=== PATIENT | male | born 1975 | race Caucasian/White ===

== ENCOUNTER 2018-03-20 08:39 | Outpatient (CLI) | payer MEDICAID, SELFPAY ==
[2018-03-20 12:09] LABS: Hemoglobin A1C 6.1 % (4.5-6.2)
[2018-03-20 12:28] LABS: Cholesterol 198 mg/dL (50-200); HDL Cholesterol 34 mg/dL (40-60); LDL CHOLESTEROL 147 mg/dL (<100); Triglyceride 140 mg/dL (30-150)
== END 2018-03-20 08:59 ==
LOC: LBO 08:39 → LOS 10:40
PROVIDERS: PCP Family Medicine; Visit Provider Family Medicine
DX: E11.9 Type 2 diabetes mellitus without complications (principal); E78.6 Lipoprotein deficiency
CPT/HCPCS: 36415; 80061; 83721; 83036

== ENCOUNTER 2018-07-11 17:07 | Emergency (ER) | payer MEDICAID, SELFPAY ==
[2018-07-11 17:31] VITALS: BP 144/96; PULSE 89; RESP 16; TEMP 36.7; O2SAT 99
--- NOTE | 2018-07-11 18:46 | DI.CT_ITS ---
SYMPTOMS/DIAGNOSIS: LLQ ABD PAIN, RECENT ADMISSION FOR DIVERTICULITIS CT OF THE ABDOMEN AND PELVIS: Comparison is made with [id number]. The lung bases are clear. The liver appears fatty. The gallbladder, spleen, pancreas, kidneys and adrenals are unremarkable. There is marked stranding in the fat surrounding the proximal sigmoid. Numerous diverticula are seen. The findings are consistent with diverticulitis. No abscess or perforation is seen. The bladder and appendix are unremarkable. There is no small bowel dilatation. IMPRESSION: Sigmoid diverticulitis.
--- NOTE | 2018-07-11 18:47 | W.ED.GENAD ---
Discharge Plan Disposition Patient Disposition: HOME Condition: Stable Discharge Details Chief Complaint: Abd Prob Clinical Impression: Diverticulitis Primary Care Provider: Gavino Pinedo ED Provider: Maldonado Stover [place] Meds and New Rx's Prescriptions: New metronidazole [Flagyl] 500 mg tablet 500 mg PO TID Qty: 30 RF: 0 ciprofloxacin HCl 500 mg tablet 500 mg PO BID Qty: 20 RF: 0 oxycodone 5 mg tablet 5 mg PO ONCE Qty: 10 RF: 0 No Action dextroamphetamine-amphetamine [Adderall XR] 30 mg capsule,extended release 24hr 30 mg PO QAM MDD 30mg Qty: 30 RF: 0 Discharge Instructions Instructions: Diverticulitis (ED) Additional Instructions: if you have severe worsening of pain or persistent vomit return to the emergency department follow up with your primary care provider in 1-2 weeks do not drink alcohol or operate heavy machinery if you take the oxycodone. Do not drink alcohol while taking the flagyl (metronidazole) Medical Decision Making <Brannon Acevedo MD - Last Filed: 07/11/18 19:29> 42-year-old male presents from home out of hours of left lower quadrant abdominal pain that are reminiscent of that which she had when admitted to [facility] early in the month for what he describes as diverticulitis with microperforation. He is afebrile and in mild distress. His exam reveals mild rebound tenderness in the left lower quadrant of the abdomen. Differential diagnosis includes recurrent acute diverticulitis, diverticulitis with perforation, bowel obstruction. Patient IV access established, fluids initiated, referred for laboratory testing and CT scan. Records requested from [facility]. As diagnostics are pending at change of shift, patient will be signed out to Dr. Stover. Please see his note regarding diagnostic impression and disposition. HPI <Brannon Acevedo MD - Last Filed: 07/11/18 19:29> General Mode of arrival: ambulatory. Date/Time Provider Initiated Documentation: 07/11/18 17:32. Limitations to Documentation: no limitations. Information obtained by: patient. History of Present Illness 42 year old M presents to the emergency department with the chief complaint of 42-year-old male presents with 1 day of left lower quadrant pain, HPI Narrative: Left lower quadrant pain beginning this morning. Began after eating a large amount of popcorn last night. Similar to episode of diverticulitis which she was admitted to [facility] the beginning of June. States he finished antibiotics approximately 10 days ago. He has been feeling well up until this morning. No fever. No vomiting. Related Data Home Medications Medication Instructions Recorded Confirmed dextroamphetamine-amphetamine ER 30 mg PO QAM #30 cap MDD 30mg 06/22/18 30 mg 24hr capsule,extend release ciprofloxacin HCl 500 mg PO BID #20 tab 07/11/18 metronidazole [Flagyl] 500 mg PO TID #30 tab 07/11/18 oxycodone 5 mg PO ONCE #10 tab 07/11/18 Previous Rx's Medication Instructions Recorded dextroamphetamine-amphetamine ER 30 mg PO QAM #30 cap MDD 30mg 06/22/18 30 mg 24hr capsule,extend release ciprofloxacin HCl 500 mg PO BID #20 tab 07/11/18 metronidazole [Flagyl] 500 mg PO TID #30 tab 07/11/18 oxycodone 5 mg PO ONCE #10 tab 07/11/18 Allergies Allergy/AdvReac Type Severity Reaction Status Date / Time No Known Allergies Allergy Unverified 07/11/18 17:34 General Stated Complaint: Abd Prob IVELISSE: 3 Review of Systems <Brannon Acevedo MD - Last Filed: 07/11/18 19:29> Review of Systems 8 systems reviewed and otherwise negative PFSH <Brannon Acevedo MD - Last Filed: 07/11/18 19:29> Surgical History Arthroscopy Family History Grandfather No problems noted. 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 Pleasant, well groomed, interactive. HEAD: Normocephalic, atraumatic ENT: Mucous membranes moist, oropharynx unremarkable, External ear exam unremarkable EYES: PERRL, EOMI NECK: Full ROM, no JESSICA, no menigismus CHEST/RESP: Nontender, clear to auscultation bilateral, no wheeze/rhonchi/rales CARDIOVASCULAR: RRR, no murmur, rub dai. 2+ Rad pulse bilateral ABDOMEN: Soft, obese, tender in the left lower quadrant with mild rebound., no mass. +Bowel sounds EXT: Full ROM, no edema, no rash Neuro: Grossly normal neurologic exam, conversant, interactive. Psych: Speech fluent, thoughts congruent, affect normal Course <Brannon Acevedo MD - Last Filed: 07/11/18 19:29> Vital Signs Temperature 36.7 C 07/11/18 17:31 Pulse 89 07/11/18 17:31 Respiratory Rate 16 07/11/18 17:31 Blood Pressure 144/96 H 07/11/18 17:31 Pulse Oximetry 99 07/11/18 17:31 Temperature 36.7 C 07/11/18 17:31 Temperature Source Skin 07/11/18 17:31 Pulse 89 07/11/18 17:31 Respiratory Rate 16 07/11/18 17:31 Respiratory Effort Non-Labored 07/11/18 17:31 Blood Pressure 144/96 H 07/11/18 17:31 Blood Pressure Position Sitting 07/11/18 17:31 Pulse Oximetry 99 07/11/18 17:31 Oxygen Delivery Method Room Air 07/11/18 17:31 Oxygen Flow Rate 0 07/11/18 17:31 Pain Level 8 07/11/18 17:31 Sign Out <Brannon Acevedo MD - Last Filed: 07/11/18 19:29> Sign Out Data: Sign Out Comment: Follow-up CAT scan Last updated by Brannon Acevedo MD at 07/11/18 19:30 Post-Handoff Eval: pt remains stable, mild pain in llq on exam without guarding. CT shows diverticulitis without abscess or perforation. will d/c on po abx and return precautions given
--- NOTE | 2018-07-11 18:50 | ED.GENADUL_ITS ---
Discharge Plan Disposition Patient Disposition: HOME Condition: Stable Discharge Details Chief Complaint: Abd Prob Clinical Impression: Diverticulitis Primary Care Provider: Gavino Pinedo ED Provider: Maldonado Stover [place] Meds and New Rx's Prescriptions: New metronidazole [Flagyl] 500 mg tablet 500 mg PO TID Qty: 30 RF: 0 ciprofloxacin HCl 500 mg tablet 500 mg PO BID Qty: 20 RF: 0 oxycodone 5 mg tablet 5 mg PO ONCE Qty: 10 RF: 0 No Action dextroamphetamine-amphetamine [Adderall XR] 30 mg capsule,extended release 24hr 30 mg PO QAM MDD 30mg Qty: 30 RF: 0 Discharge Instructions Instructions: Diverticulitis (ED) Additional Instructions: if you have severe worsening of pain or persistent vomit return to the emergency department follow up with your primary care provider in 1-2 weeks do not drink alcohol or operate heavy machinery if you take the oxycodone. Do not drink alcohol while taking the flagyl (metronidazole) Medical Decision Making <Brannon Acevedo MD - Last Filed: 07/11/18 19:29> 42-year-old male presents from home out of hours of left lower quadrant abdominal pain that are reminiscent of that which she had when admitted to [facility] early in the month for what he describes as diverticulitis with microperforation. He is afebrile and in mild distress. His exam reveals mild rebound tenderness in the left lower quadrant of the abdomen. Differential diagnosis includes recurrent acute diverticulitis, diverticulitis with perforation, bowel obstruction. Patient IV access established, fluids initiated, referred for laboratory testing and CT scan. Records requested from [facility]. As diagnostics are pending at change of shift, patient will be signed out to Dr. Stover. Please see his note regarding diagnostic impression and disposition. HPI <Brannon Acevedo MD - Last Filed: 07/11/18 19:29> General Mode of arrival: ambulatory . Date/Time Provider Initiated Documentation: 07/11/18 17:32 . Limitations to Documentation: no limitations . Information obtained by: patient . History of Present Illness 42 year old M presents to the emergency department with the chief complaint of 42-year-old male presents with 1 day of left lower quadrant pain, HPI Narrative: Left lower quadrant pain beginning this morning. Began after eating a large amount of popcorn last night. Similar to episode of diverticulitis which she was admitted to [facility] the beginning of June. States he finished antibiotics approximately 10 days ago. He has been feeling well up until this morning. No fever. No vomiting. Related Data Home Medications Medication Instructions Recorded Confirmed dextroamphetamine-amphetamine ER 30 mg PO QAM #30 cap MDD 30mg 06/22/18 30 mg 24hr capsule,extend release ciprofloxacin HCl 500 mg PO BID #20 tab 07/11/18 metronidazole [Flagyl] 500 mg PO TID #30 tab 07/11/18 oxycodone 5 mg PO ONCE #10 tab 07/11/18 Previous Rx's Medication Instructions Recorded dextroamphetamine-amphetamine ER 30 mg PO QAM #30 cap MDD 30mg 06/22/18 30 mg 24hr capsule,extend release ciprofloxacin HCl 500 mg PO BID #20 tab 07/11/18 metronidazole [Flagyl] 500 mg PO TID #30 tab 07/11/18 oxycodone 5 mg PO ONCE #10 tab 07/11/18 Allergies Allergy/AdvReac Type Severity Reaction Status Date / Time No Known Allergies Allergy Unverified 07/11/18 17:34 General Stated Complaint: Abd Prob IVELISSE: 3 Review of Systems <Brannon Acevedo MD - Last Filed: 07/11/18 19:29> Review of Systems 8 systems reviewed and otherwise negative PFSH <Brannon Acevedo MD - Last Filed: 07/11/18 19:29> Surgical History Arthroscopy Family History Grandfather No problems noted. 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 Pleasant, well groomed, interactive. HEAD: Normocephalic, atraumatic ENT: Mucous membranes moist, oropharynx unremarkable, External ear exam unremarkable EYES: PERRL, EOMI NECK: Full ROM, no JESSICA, no menigismus CHEST/RESP: Nontender, clear to auscultation bilateral, no wheeze/rhonchi/rales CARDIOVASCULAR: RRR, no murmur, rub dai. 2+ Rad pulse bilateral ABDOMEN: Soft, obese, tender in the left lower quadrant with mild rebound., no mass. +Bowel sounds EXT: Full ROM, no edema, no rash Neuro: Grossly normal neurologic exam, conversant, interactive. Psych: Speech fluent, thoughts congruent, affect normal Course <Brannon Acevedo MD - Last Filed: 07/11/18 19:29> Vital Signs Temperature 36.7 C 07/11/18 17:31 Pulse 89 07/11/18 17:31 Respiratory Rate 16 07/11/18 17:31 Blood Pressure 144/96 H 07/11/18 17:31 Pulse Oximetry 99 07/11/18 17:31 Temperature 36.7 C 07/11/18 17:31 Temperature Source Skin 07/11/18 17:31 Pulse 89 07/11/18 17:31 Respiratory Rate 16 07/11/18 17:31 Respiratory Effort Non-Labored 07/11/18 17:31 Blood Pressure 144/96 H 07/11/18 17:31 Blood Pressure Position Sitting 07/11/18 17:31 Pulse Oximetry 99 07/11/18 17:31 Oxygen Delivery Method Room Air 07/11/18 17:31 Oxygen Flow Rate 0 07/11/18 17:31 Pain Level 8 07/11/18 17:31 Sign Out <Brannon Acevedo MD - Last Filed: 07/11/18 19:29> Sign Out Data: Sign Out Comment: Follow-up CAT scan Last updated by Brannon Acevedo MD at 07/11/18 19:30 Post-Handoff Eval: pt remains stable, mild pain in llq on exam without guarding. CT shows diverticulitis without abscess or perforation. will d/c on po abx and return precautions given
[2018-07-11 19:12] LABS: Abs Immature Grans 0.03 k/cumm (0.0-0.09); Absolute Basophil Count 0.02 k/cumm (0.0-0.2); Absolute Eosinophil Count 0.11 k/cumm (0.0-0.7); Absolute Lymphocyte Count 1.64 k/cumm (1.2-3.4); Basophils % 0.2; Eosinophils % 0.9; HCT 49.4 % (40.0-50.0); HGB 16.8 g/dL (13.5-17.5); Immature Grans % 0.2; Lymphocytes % 13.3; Mean Corpuscular Hemoglobin 29.3 pg (27.0-33.0); Mean Corpuscular Volume 86.2 fL (80-95); Monocytes % 5.4; Platelet Count 235 x1000/uL (130-400); RBC 5.73 m/cumm (4.50-6.00); RBC Distribution Width 13.2 % (11.8-14.1); White Blood Cell Count 12.33 k/cumm (4.4-10.8)
[2018-07-11 19:14] LABS: Absolute Monocyte Count 0.67 k/cumm (0.11-0.7); Absolute Neutrophil Count 9.86 k/cumm (1.2-6.7)
[2018-07-11] MEDS: Normal Saline 1,000 ML 150 ML IV (19:25)
[2018-07-11 19:26] LABS: ALT 49 U/L (12-78); AST 25 U/L (15-37); Albumin 4.1 g/dL (3.4-5.0); Alkaline Phosphatase 86 U/L (46-116); Anion Gap 5.7 mmol/L (3-11); BUN 12 mg/dL (7-18); Bilirubin, Total 0.9 mg/dL (0.2-1.0); CO2 31.3 mmol/L (21.0-32.0); CREATININE 0.97 mg/dL (0.70-1.30); Calcium 9.5 mg/dL (8.5-10.1); Chloride 100 mmol/L (98-107); Glucose 97 mg/dL (70-100); Sodium 137 mmol/L (136-145); Total Protein 8.5 g/dL (6.4-8.2)
[2018-07-11] MEDS: Breeza Beverage 473 ML BTL PO ×2 (19:30→19:31)
[2018-07-11] MEDS: Omnipaque 350 MG/ML 50 ML BTL PO (19:31)
[2018-07-11] MEDS: Omnipaque 350 MG/ML 100 ML BTL IJ (20:48)
--- NOTE | 2018-07-11 21:20 | DI.VRAD_ITS ---
EXAM: CT Abdomen and Pelvis With Contrast EXAM DATE/TIME: 07/11/2018 6:47 PM CLINICAL HISTORY: 42 years old, male; Pain; Abdominal pain; Localized; Left lower quadrant (llq); Patient HX: Llq pain, recent admission for diverticulitis TECHNIQUE: Axial computed tomography images of the abdomen and pelvis with intravenous contrast. Coronal and sagittal reformatted images were created and reviewed. COMPARISON: CT CHEST ABD PELVIS WITH CONTRAST 10/21/2017 2:58 AM FINDINGS: Lower thorax: No acute findings. ABDOMEN: Liver: Unremarkable. No mass. Gallbladder and bile ducts: Unremarkable. No calcified stones. No ductal dilation. Pancreas: Unremarkable. No ductal dilation. Spleen: Unremarkable. No splenomegaly. Adrenals: Normal. No mass. Kidneys and ureters: Unremarkable. No stones. No hydronephrosis. Stomach and bowel: Numerous diverticula throughout the sigmoid colon. Inflammatory stranding and fluid surrounding and adjacent to the proximal sigmoid colon consistent with acute diverticulitis. Appendix: No evidence of appendicitis. PELVIS: Bladder: Unremarkable as visualized. Reproductive: Unremarkable as visualized. ABDOMEN and PELVIS: Intraperitoneal space: No free intraperitoneal fluid or free air. Bones/joints: No acute fracture. Soft tissues: Unremarkable. Vasculature: Unremarkable. No abdominal aortic aneurysm. Lymph nodes: Unremarkable. No enlarged lymph nodes. Other findings: No abscess. IMPRESSION: Acute sigmoid diverticulitis. Dictated and Authenticated by: Ashish Stevenson MD. Ordering:ELIOT South MD
[2018-07-11] MEDS: Ciprofloxacin 500 MG TAB PO (21:57)
[2018-07-11] MEDS: metroNIDAZOLE 500 MG TAB PO (21:57)
[2018-07-11] MEDS: oxyCODONE 5 MG TAB 15 MG PO (21:57)
[2018-07-11 22:05] VITALS: BP 134/86; PULSE 89; RESP 24; TEMP 37.1; O2SAT 99
== END 2018-07-11 22:19 | disposition home or self-care (01) ==
PROVIDERS: Emergency Medicine; Emergency Provider Emergency Medicine; PCP Family Medicine
DX: K57.32 Diverticulitis of large intestine without perforation or abscess without bleeding (principal)
CPT/HCPCS: 36415; 80053; 96361; 99285; 74177; 85025; 99284; J3490; Q9967

== ENCOUNTER 2018-08-15 12:47 | Emergency (ER) | payer MEDICAID, SELFPAY ==
--- NOTE | 2018-08-15 13:07 | NUR.NOTE ---
pt was diagnosed with diverticulitis several weeks ago in our ER symptoms subsided. pt states that at 0200 symptoms returned with 10/10 pain centering in LRQ
[2018-08-15 13:09] VITALS: BP 167/89; PULSE 90; RESP 16; TEMP 36; O2SAT 95
--- NOTE | 2018-08-15 13:35 | W.ED.GENAD ---
Discharge Plan Disposition Patient Disposition: AGAINST MEDICAL ADVICE Condition: Fair Discharge Details Chief Complaint: Abd Prob Clinical Impression: Diverticulitis Primary Care Provider: Gavino Pinedo ED Provider: Kimberly Presley Home Meds and New Rx's Prescriptions: Continued dextroamphetamine-amphetamine [Adderall] 30 mg Tablet 30 mg PO DAILY RF: 0 No Action amoxicillin-pot clavulanate 875-125 mg tablet 1 tab PO TID 10 Days Qty: 30 RF: 0 Discharge Instructions Additional Instructions: You have elected to leave the emergency department AGAINST MEDICAL ADVICE. The risks of doing so are and permanent disability, as we discussed. You may return to the emergency department at any time if you change your mind. Please return immediately to the emergency department if you develop any new or worsening symptoms or if you become otherwise concerned. It is extremely important that you make an appointment to follow-up with your primary care doctor as soon as possible. Referrals: Gavino Pinedo [Primary Care Provider] - Discharge Data Discharge Date/Time-TO BE ENTERED AT DEPARTURE: 08/15/18 16:27 Medical Decision Making Justin Mancia is a 42-year-old man with recent history of diverticulitis presenting to the emergency department with recurrence of left lower quadrant pain as with recent diverticulitis. On exam patient is very well and nontoxic appearing. He does have mild tenderness in the left lower quadrant without peritoneal signs. Concern for recurrence of diverticulitis, complication of prior episode, other. Exam/history is not consistent with acute aortic pathology, mesenteric ischemia, kidney stone, sepsis, testicular etiology. Plan for CT abdomen pelvis, screening labs, IV morphine, IV fluid hydration. I personally reviewed the CT, per radiology CT shows diverticulitis with microperforations and possible abscess. I did discuss the patient with Dr. Ozuna of surgery, plan for admission to the hospital, ertapenem. 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 I had a lengthy discussion with the patient regarding the risks of leaving the hospital AGAINST MEDICAL ADVICE including and permanent disability. Patient reports that he will return if he can, but there is no way that he can stay at this time. He verbalizes understanding the risks of leaving AGAINST MEDICAL ADVICE. Plan for Levaquin Flagyl p.o. I had a lengthy discussion with the patient regarding home care, that he may return to the emergency department anytime he changes his mind, return to emergency department precautions, and importance of outpatient follow-up. He verbalized understanding the plan and is amenable. Medical Records Medical records reviewed: Yes I reviewed the patient's medical records. Lab Data Lab results reviewed: Yes I reviewed the patient's lab results. HPI General Mode of arrival: ambulatory. Date/Time Provider Initiated Documentation: 08/15/18 13:13. Limitations to Documentation: no limitations. Information obtained by: patient, RN notes reviewed and old records reviewed. HPI Narrative: Justin Mancia is a 42-year-old man with history of narcolepsy, depression, asthma presenting to the emergency department left lower quadrant pain. Patient reports he was treated at [facility] for diverticulitis in early June 2018, and then was again treated with outpatient antibiotics for recurrence of diverticulitis in mid June. Patient reports that he has been off of all antibiotics for 3 weeks. He reports that he developed new left lower quadrant pain last night, it feels similar to what he had during the month of June. He has had no diarrhea, no vomiting, last bowel movement was this morning and normal. No fevers. Patient reports that he feels otherwise in his usual state of health. No history of abdominal surgery. Related Data Home Medications Medication Instructions Recorded Confirmed dextroamphetamine-amphetamine 30 mg PO DAILY 08/15/18 08/15/18 [Adderall] amoxicillin-pot clavulanate 1 tab PO TID 10 Days #30 tab 08/18/18 Previous Rx's Medication Instructions Recorded amoxicillin-pot clavulanate 1 tab PO TID 10 Days #30 tab 08/18/18 Allergies Allergy/AdvReac Type Severity Reaction Status Date / Time No Known Allergies Allergy Unverified 08/15/18 13:12 General Stated Complaint: Abd Prob IVELISSE: 3 Review of Systems Review of Systems Constitutional: denies fevers Eyes: denies eye pain ENT: denies facial pain, dental pain, sore throat Cardiovascular: denies chest pain, edema Respiratory: denies SOB, cough GI: reports abdominal pain, denies vomiting, diarrhea, constipation : denies flank pain MSK: denies back pain, neck pain, arthralgias, myalgias Skin: denies rash Neuro: denies headaches, numbness, weakness [facility] Medical History Sleep apnea (Acute) Diverticulitis (Chronic ~06/2018) Adult ADHD (Acute) Sleep apnea (Acute) Kidney stones (Chronic) Surgical History Arthroscopy Social History household members: other details: 5 current occupational status: employed 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 pets and animals: Yes pets and animals: cat(s) frequency: 5-6 times per week Smoking/Tobacco Use Status: Never alcohol intake: never substance use type: does not use special kristin needs: No Exam Narrative Exam Narrative: Constitutional: well and [id number], pleasant, conversing normally HENT: head atraumatic, normocephalic normal inspection, mucous membranes moist Eyes: conjunctiva normal, sclera normal, pupils 3mm b/l Neck: no stridor, normal ROM, trachea midline Chest: normal inspection Resp: normal work of breathing, LCTAB Cardio: normal rate, normal rhythm, no murmur appreciated GI: abdomen soft, mild tenderness palpation left lower quadrant, rebound or guarding, no CVA tenderness bilaterally, non-distended Back: normal inspection, no rash Skin: warm, dry, normal color, no rash Neuro: alert, not altered, grossly non-focal, normal tone Ext: no edema Psych: normal mood, normal affect, normal behavior Course Vital Signs Temperature 36 C L 08/15/18 13:09 Pulse 90 08/15/18 13:09 Respiratory Rate 16 08/15/18 13:09 Blood Pressure 167/89 H 08/15/18 13:09 Pulse Oximetry 95 08/15/18 13:09 Temperature 36 C L 08/15/18 13:09 Temperature Source Skin 08/15/18 13:09 Pulse 90 08/15/18 13:09 Respiratory Rate 16 08/15/18 13:09 Blood Pressure 167/89 H 08/15/18 13:09 Blood Pressure Position Sitting 08/15/18 13:09 Pulse Oximetry 95 08/15/18 13:09 Oxygen Delivery Method Room Air 08/15/18 13:09 Oxygen Flow Rate 0 08/15/18 13:09 Pain Level 10 08/15/18 13:09
[2018-08-15 14:08] LABS: Abs Immature Grans 0.05 k/cumm (0.0-0.09); Absolute Basophil Count 0.03 k/cumm (0.0-0.2); Absolute Eosinophil Count 0.04 k/cumm (0.0-0.7); Absolute Lymphocyte Count 1.86 k/cumm (1.2-3.4); Absolute Monocyte Count 0.73 k/cumm (0.11-0.7); Absolute Neutrophil Count 10.75 k/cumm (1.2-6.7); Basophils % 0.2; Eosinophils % 0.3; HCT 48.4 % (40.0-50.0); HGB 16.8 g/dL (13.5-17.5); Immature Grans % 0.4; Lymphocytes % 13.8; Mean Corp. HGB Concentration 34.7 g/dL (32.0-36.0); Mean Corpuscular Hemoglobin 29.8 pg (27.0-33.0); Mean Corpuscular Volume 85.8 fL (80-95); Mean Platelet Volume 10.8 fL (8.0-11.0); Monocytes % 5.4; Neutrophils % 79.9; Platelet Count 226 x1000/uL (130-400); RBC 5.64 m/cumm (4.50-6.00); RBC Distribution Width 13.3 % (11.8-14.1); White Blood Cell Count 13.45 k/cumm (4.4-10.8)
[2018-08-15 14:19] LABS: ALT 31 U/L (12-78); AST 17 U/L (15-37); Albumin 3.8 g/dL (3.4-5.0); Alkaline Phosphatase 85 U/L (46-116); Anion Gap 7.6 mmol/L (3-11); BUN 15 mg/dL (7-18); Bilirubin, Total 1.1 mg/dL (0.2-1.0); CO2 29.4 mmol/L (21.0-32.0); CREATININE 0.99 mg/dL (0.70-1.30); Calcium 9.3 mg/dL (8.5-10.1); Chloride 102 mmol/L (98-107); Glucose 95 mg/dL (70-100); Lipase 78 U/L (73-393); Potassium 4.1 mmol/L (3.5-5.1); Sodium 139 mmol/L (136-145); Total Protein 8.2 g/dL (6.4-8.2)
[2018-08-15] MEDS: Omnipaque 350 MG/ML 100 ML BTL IJ (14:24)
--- NOTE | 2018-08-15 14:30 | DI.CT_ITS ---
SYMPTOM/DIAGNOSIS: LLQ ABD PAIN, H/O DIVERTICULITIS ABDOMEN AND PELVIC CT: Comparison is made with 07/11/18. Sigmoid diverticulosis is again noted. There is continued wall thickening and inflammation surrounding the proximal sigmoid colon in the same location as on the previous exam, consistent with diverticulitis. There is now evidence of perforation with a small abscess seen anterior to the inflamed region of colon measuring approximately 2 cm. in diameter. There is no evidence of bowel obstruction. No free fluid is seen. The lung bases are clear. The heart size is normal. The liver, gallbladder, spleen, pancreas, adrenals, kidneys and urinary bladder as well as prostate are unremarkable. IMPRESSION: Sigmoid diverticulitis in the same location as on the previous exam, now with perforation and formation of a small abscess anterior to the region of the inflamed colon.
--- NOTE | 2018-08-15 15:11 | DI.VRAD_ITS ---
Addendum created by Anshu Lopez MD on 08/15/2018 3:16:24 PM EST THIS REPORT CONTAINS FINDINGS THAT MAY BE CRITICAL TO PATIENT CARE. The findings were verbally communicated via telephone conference with ROBERT HAUSER at 3:16 PM EST on 08/15/2018. The findings were acknowledged and understood. Initial report created on 08/15/2018 3:11:02 PM EST EXAM: CT Abdomen and Pelvis With Contrast EXAM DATE/TIME: 08/15/2018 2:23 PM CLINICAL HISTORY: 42 years old, male; Pain; Abdominal pain; Localized; Left lower quadrant (llq); Patient HX: Llq pain. PT sts HX of diverticulitis. TECHNIQUE: Axial computed tomography images of the abdomen and pelvis with intravenous contrast. All CT scans at this facility use at least one of these dose optimization techniques: automated exposure control; mA and/or kV adjustment per patient size (includes targeted exams where dose is matched to clinical indication); or iterative reconstruction. Coronal and sagittal reformatted images were created and reviewed. CONTRAST: 100 ml of omnipaque 350 administered intravenously. COMPARISON: CT Private^ROUTINE ABDOMEN PELVIS WITH CONTRAST (Adult) 07/11/2018 8:29 PM FINDINGS: Lower thorax: No acute findings. ABDOMEN: Liver: Hepatomegaly 20 cm No mass. Gallbladder and bile ducts: Normal. No calcified stones. No ductal dilation. Pancreas: Normal. No ductal dilation. Spleen: Normal. No splenomegaly. Adrenals: Normal. No mass. Kidneys and ureters: Normal. No hydronephrosis. Stomach and bowel: Diverticulosis and Bowel wall thickening along the rectosigmoid colon. Moderate pericolonic inflammatory changes. Multiple focal perforations in the left lower quadrant. 2 cm fluid collection within the rectosigmoid could represent abscess (4:73) No evidence of bleeding. Findings consistent with acute diverticulitis. Appendix: Normal appendix PELVIS: Bladder: Unremarkable as visualized. Reproductive: Unremarkable as visualized. ABDOMEN and PELVIS: Intraperitoneal space: Multiple focal perforation subadjacent to the diverticulitis Bones/joints: Degenerative changes in the right sacroiliac joint Soft tissues: Unremarkable. Vasculature: Normal. No abdominal aortic aneurysm. Lymph nodes: Normal. No enlarged lymph nodes. IMPRESSION: Diverticulosis and Bowel wall thickening along the rectosigmoid colon. Moderate pericolonic inflammatory changes. Multiple focal perforations in the left lower quadrant. 2 cm fluid collection within the colon could represent abscess (4:73) No evidence of bleeding. Findings consistent with acute diverticulitis. Dictated and Authenticated by: Anshu Lopez MD. Ordering:ZEB Harris MD
[2018-08-15 15:30] LABS: Bilirubin Negative (Negative); Blood Negative (Negative); Clarity Clear; Glucose Negative (Negative); Ketones Negative (Negative); Leukocyte Esterase Negative (Negative); Nitrite Negative (Negative); Specific Gravity 1.015 (1.005-1.025); Urobilinogen 0.2 EU/dL (Up TO 0.2)
[2018-08-15 15:40] LABS: Bacteria Rare HPF (Negative); Crystals Negative HPF (Negative); Epithelial Cells Negative HPF (Negative); Other Cells Negative (Negative); RBC Negative (0-2); WBC Negative HPF (0-5)
[2018-08-15 15:41] LABS: C & S Indicated? No; Casts Negative LPF (Negative); Mucus Trace (Negative)
[2018-08-15] MEDS: metroNIDAZOLE 500 MG TAB PO (16:19)
[2018-08-15] MEDS: LEVOFLOXACIN 500 MG, LEVOFLOXACIN 250 MG 750 MG PO (16:19)
--- NOTE | 2018-08-15 18:39 | ED.GENADUL_ITS ---
Discharge Plan Disposition Patient Disposition: AGAINST MEDICAL ADVICE Condition: Fair Discharge Details Chief Complaint: Abd Prob Clinical Impression: Diverticulitis Primary Care Provider: Gavino Pinedo ED Provider: Kimberly Presley Home Meds and New Rx's Prescriptions: Continued dextroamphetamine-amphetamine [Adderall] 30 mg Tablet 30 mg PO DAILY RF: 0 No Action amoxicillin-pot clavulanate 875-125 mg tablet 1 tab PO TID 10 Days Qty: 30 RF: 0 Discharge Instructions Additional Instructions: You have elected to leave the emergency department AGAINST MEDICAL ADVICE. The risks of doing so are and permanent disability, as we discussed. You may return to the emergency department at any time if you change your mind. Please return immediately to the emergency department if you develop any new or worsening symptoms or if you become otherwise concerned. It is extremely important that you make an appointment to follow-up with your primary care doctor as soon as possible. Referrals: Gavino Pinedo [Primary Care Provider] - Discharge Data Discharge Date/Time-TO BE ENTERED AT DEPARTURE: 08/15/18 16:27 Medical Decision Making Justin Mancia is a 42-year-old man with recent history of diverticulitis presenting to the emergency department with recurrence of left lower quadrant pain as with recent diverticulitis. On exam patient is very well and nontoxic appearing. He does have mild tenderness in the left lower quadrant without peritoneal signs. Concern for recurrence of diverticulitis, complication of prior episode, other. Exam/history is not consistent with acute aortic pathology, mesenteric ischemia, kidney stone, sepsis, testicular etiology. Plan for CT abdomen pelvis, screening labs, IV morphine, IV fluid hydration. I personally reviewed the CT, per radiology CT shows diverticulitis with micrope rforations and possible abscess. I did discuss the patient with Dr. Ozuna of surgery, plan for admission to the hospital, ertapenem. 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 I had a lengthy discussion with the patient regarding the risks of leaving the hospital AGAINST MEDICAL ADVICE including and permanent disability. Patient reports that he will return if he can, but there is no way that he can stay at this time. He verbalizes understanding the risks of leaving AGAINST MEDICAL ADVICE. Plan for Levaquin Flagyl p.o. I had a lengthy discussion with the patient regarding home care, that he may return to the emergency department anytime he changes his mind, return to emergency department precautions, and importance of outpatient follow-up. He verbalized understanding the plan and is amenable. Medical Records Medical records reviewed: Yes I reviewed the patient's medical records. Lab Data Lab results reviewed: Yes I reviewed the patient's lab results. HPI General Mode of arrival: ambulatory . Date/Time Provider Initiated Documentation: 08/15/18 13:13 . Limitations to Documentation: no limitations . Information obtained by: patient, RN notes reviewed and old records reviewed . HPI Narrative: Justin Mancia is a 42-year-old man with history of narcolepsy, depression, asthma presenting to the emergency department left lower quadrant pain. Patient reports he was treated at [place] for diverticulitis in early June 2018, and then was again treated with outpatient antibiotics for recurrence of diverticulitis in mid June. Patient reports that he has been off of all antibiotics for 3 weeks. He reports that he developed new left lower quadrant pain last night, it feels similar to what he had during the month of June. He has had no diarrhea, no vomiting, last bowel movement was this morning and normal. No fevers. Patient reports that he feels otherwise in his usual state of health. No history of abdominal surgery. Related Data Home Medications Medication Instructions Recorded Confirmed dextroamphetamine-amphetamine 30 mg PO DAILY 08/15/18 08/15/18 [Adderall] amoxicillin-pot clavulanate 1 tab PO TID 10 Days #30 tab 08/18/18 Previous Rx's Medication Instructions Recorded amoxicillin-pot clavulanate 1 tab PO TID 10 Days #30 tab 08/18/18 Allergies Allergy/AdvReac Type Severity Reaction Status Date / Time No Known Allergies Allergy Unverified 08/15/18 13:12 General Stated Complaint: Abd Prob IVELISSE: 3 Review of Systems Review of Systems Constitutional: denies fevers Eyes: denies eye pain ENT: denies facial pain, dental pain, sore throat Cardiovascular: denies chest pain, edema Respiratory: denies SOB, cough GI: reports abdominal pain, denies vomiting, diarrhea, constipation : denies flank pain MSK: denies back pain, neck pain, arthralgias, myalgias Skin: denies rash Neuro: denies headaches, numbness, weakness [facility] Medical History Sleep apnea (Acute) Diverticulitis (Chronic ~06/2018) Adult ADHD (Acute) Sleep apnea (Acute) Kidney stones (Chronic) Surgical History Arthroscopy Social History household members: other details: 5 current occupational status: employed current occupation: [employer] pets and animals: Yes pets and animals: cat(s) frequency: 5-6 times per week Smoking/Tobacco Use Status: Never alcohol intake: never substance use type: does not use special kristin needs: No Exam Narrative Exam Narrative: Constitutional: well and [id number], pleasant, conversing normally HENT: head atraumatic, normocephalic normal inspection, mucous membranes moist Eyes: conjunctiva normal, sclera normal, pupils 3mm b/l Neck: no stridor, normal ROM, trachea midline Chest: normal inspection Resp: normal work of breathing, LCTAB Cardio: normal rate, normal rhythm, no murmur appreciated GI: abdomen soft, mild tenderness palpation left lower quadrant, rebound or guarding, no CVA tenderness bilaterally, non-distended Back: normal inspection, no rash Skin: warm, dry, normal color, no rash Neuro: alert, not altered, grossly non-focal, normal tone Ext: no edema Psych: normal mood, normal affect, normal behavior Course Vital Signs Temperature 36 C L 08/15/18 13:09 Pulse 90 08/15/18 13:09 Respiratory Rate 16 08/15/18 13:09 Blood Pressure 167/89 H 08/15/18 13:09 Pulse Oximetry 95 08/15/18 13:09 Temperature 36 C L 08/15/18 13:09 Temperature Source Skin 08/15/18 13:09 Pulse 90 08/15/18 13:09 Respiratory Rate 16 08/15/18 13:09 Blood Pressure 167/89 H 08/15/18 13:09 Blood Pressure Position Sitting 08/15/18 13:09 Pulse Oximetry 95 08/15/18 13:09 Oxygen Delivery Method Room Air 08/15/18 13:09 Oxygen Flow Rate 0 08/15/18 13:09 Pain Level 10 08/15/18 13:09
== END 2018-08-15 16:27 | disposition left against medical advice (07) ==
PROVIDERS: Emergency Provider Student in an Organized Health Care Education/Training Program; PCP Family Medicine
DX: R10.32 Left lower quadrant pain (principal); K57.32 Diverticulitis of large intestine without perforation or abscess without bleeding; Z53.29 Procedure and treatment not carried out because of patient's decision for other reasons
CPT/HCPCS: 36415; 80053; 83690; 96374; 99285; 74177; 81003; 81015; 85025; 99284; J3490

== ENCOUNTER 2018-08-15 19:44 | Inpatient (IN) | payer MEDICAID, SELFPAY ==
[2018-08-15 20:17] VITALS: BP 136/71; PULSE 98; RESP 16; TEMP 36.8; O2SAT 94
--- NOTE | 2018-08-15 20:29 | W.ED.GENAD ---
Discharge Plan Disposition Condition: Improving Discharge Details Chief Complaint: Abd Prob Reason For Visit: DIVERTICULITIS Admit Date/Time: 08/15/18 20:32 Admit Provider: Poncho Ozuna Attending Provider: Poncho Ozuna Primary Care Provider: Gavino Pinedo ED Provider: Kimberly Presley Discharge Instructions Activity:: No strenuous activity. Equipment/Supplies:: No Equipment Needed Diet:: Low Fiber Discharge Orders Discharge Orders: Discharge Order (Routine); Ordered 08/18/18 Ordered By: Sharlene Gómez Discharge Data Discharge Date/Time-TO BE ENTERED AT DEPARTURE: 08/15/18 22:33 Medical Decision Making Justin Mancia is a 42-year-old man who was seen here earlier today for left lower quadrant pain since last night, diagnosed with diverticulitis with microperforations and possible abscess on CT. at that time was for admission to the surgical service. Patient elected to leave AGAINST MEDICAL ADVICE. Patient now returns, having taking care of personal matters, wishes to be admitted as was previously planned. Recent evaluation with CT imaging and labs, no further emergent testing indicated at this time. Plan for admission to Dr. Ozuna of surgery. Impression: Diverticulitis Disposition: [facility] inpatient Medical Records Medical records reviewed: Yes I reviewed the patient's medical records. HPI General Mode of arrival: ambulatory. Date/Time Provider Initiated Documentation: 08/15/18 20:20. Limitations to Documentation: no limitations. Information obtained by: RN notes reviewed and old records reviewed. HPI Narrative: Justin Mancia is a 42-year-old man with history of ADHD, sleep apnea, kidney stones, 2 episodes of diverticulitis 06/30 presented to the emergency department earlier today for abdominal pain since last night. He was subsequently diagnosed by CAT scan with diverticulitis with microperforations and possible abscess. After diagnosis, plan for admission with ertapenem to the surgical service. Patient declined admission AGAINST MEDICAL ADVICE, stated that he had to take care of some things at home, but will return later. He was sent home with p.o. antibiotics. Patient has now returned for admission. He reports he continues to have some mild to moderate left lower quadrant pain that is unchanged from his prior encounter earlier today. He denies having any other symptoms. Please see my note for earlier encounter today. Related Data Home Medications Medication Instructions Recorded Confirmed amoxicillin-pot clavulanate 1 tab PO TID 10 Days #30 tab 08/18/18 08/25/18 levofloxacin 750 mg tablet 750 mg PO DAILY 08/25/18 08/25/18 metronidazole 500 mg tablet 500 mg PO TID 08/25/18 08/25/18 dextroamphetamine-amphetamine ER 30 mg PO QAM #30 cap MDD 1 08/26/18 30 mg 24hr capsule,extend release Previous Rx's Medication Instructions Recorded amoxicillin-pot clavulanate 1 tab PO TID 10 Days #30 tab 08/18/18 dextroamphetamine-amphetamine ER 30 mg PO QAM #30 cap MDD 1 08/26/18 30 mg 24hr capsule,extend release Allergies Allergy/AdvReac Type Severity Reaction Status Date / Time No Known Allergies Allergy Unverified 08/25/18 13:05 General Stated Complaint: Abd Prob IVELISSE: 3 Review of Systems Review of Systems Constitutional: denies fevers Eyes: denies eye pain ENT: denies facial pain, dental pain, sore throat Cardiovascular: denies chest pain Respiratory: denies SOB, cough GI: denies vomiting, reports abdominal pain : denies flank pain MSK: denies back pain, neck pain, arthralgias, myalgias Skin: denies rash Neuro: denies headaches, numbness, weakness PFSH Medical History Sleep apnea (Acute) Diverticulitis (Chronic ~06/2018) Adult ADHD (Acute) Sleep apnea (Acute) Kidney stones (Chronic) Surgical History Arthroscopy Family History Grandfather No problems noted. 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 pets and animals: Yes pets and animals: cat(s) frequency: 5-6 times per week Smoking and Tabacco status: Never alcohol intake: never substance use type: does not use special kristin needs: No Exam Narrative Exam Narrative: Constitutional: well and [id number], pleasant, conversing normally HENT: head atraumatic/normocephalic/normal inspection, mucous membranes moist Eyes: conjunctiva normal, sclera normal, pupils 3mm b/l Neck: no stridor, normal ROM, trachea midline Resp: normal work of breathing, LCTAB Cardio: normal rate, normal rhythm, no murmur appreciated GI: abdomen soft, left lower quadrant focally tender, no rebound or guarding, non-distended Skin: warm, dry, normal color, no rash Neuro: alert, not altered, grossly non-focal, normal tone Ext: no edema Psych: normal mood, normal affect, normal behavior Course Vital Signs Temperature 36.8 C 08/15/18 20:17 Pulse 98 H 08/15/18 20:17 Respiratory Rate 16 08/15/18 20:17 Blood Pressure 136/71 08/15/18 20:17 Pulse Oximetry 94 L 08/15/18 20:17 Temperature 36.8 C 08/15/18 20:17 Pulse 98 H 08/15/18 20:17 Respiratory Rate 16 08/15/18 20:17 Respiratory Effort 08/15/18 20:17 Blood Pressure 136/71 08/15/18 20:17 Blood Pressure Position Sitting 08/15/18 20:17 Pulse Oximetry 94 L 08/15/18 20:17 Oxygen Delivery Method Room Air 08/15/18 20:17 Oxygen Flow Rate 0 08/15/18 20:17 Pain Level 10 08/15/18 20:17
--- NOTE | 2018-08-15 21:07 | W.PM.HP.N ---
Date of service: 08/15/18 Time of Service: 21:07 Assessment and Plan (1) Diverticulitis: Current visit: Yes Status: Chronic 42 y/o male with an acute/chronic diverticulitis of the rectosigmoid colon which has had a smoldering course since June 2018. Symptoms appear to recur after he has completed each round of antibiotics. He has been on a fluoroquinolone/metronidazole x [address] scan noted. Will treat with ertapenem on this admission. Clear liquid diet. Follow-up labs in am.. See orders. Discussed with patient that there is a high likelihood that he will need a colon resection if the diverticulitis continues to have this recurrent/chronic course. He does not appear to be septic at this time. Would prefer to optimize him for a scheduled colon resection after his acute infection has subsided and he is able to tolerate a bowel prep. Further recommendations pending clinical course. All questions answered. Patient appeared to understand and agree with the discussion as outlined above. (2) Sleep apnea: Current visit: Yes Status: Acute Patient may use his home CPAP. History of Present Illness Chief Complaint: Abdominal pain Narrative: 42 y/o male admitted through the ED with recurrent diverticulitis. Patient has a known h/o kidney stones and had lower abdominal pain and hematuria in early June 2018. He was seen at [facility] and found to have diverticulitis with a microburst. He was hospitalized on IV ABX x 4 days then discharged on po antibiotics for a 1-2 week course. He thinks that he was on Levaquin and Flagyl. He did follow-up with a surgeon in [place] and appeared to be better so he was instructed to follow-up prn. He states that he was seen in the ED here at [facility] at the end of June 2018 with recurrent symptoms after eating some popcorn. He was prescribed Cipro and Flagyl x 10 days then d/c'd from the ED. He has been off of antibiotics for about 2 weeks now. He awoke with severe LLQ pain around 0230 this morning. He denies nausea, vomiting, fevers, or chills. He did have a small, loose BM at 0230 this morning. He has been tolerating a diet. He notes some subjective swelling in the LLQ. WBC ~ 13k in the ED this afternoon. He had a CT abd/pelvis today with IV contrast only which demonstrated diverticulitis with microperforations and possible 2 cm abscess. He was to be admitted this afternoon but left AMA to take care of things at home prior to returning this evening for admission. 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 He has a h/o ADHD and sleep apnea for which he uses CPAP. He has never had a colonoscopy. He notes that his mother also had issues with diverticular disease. Review of Systems Review of Systems All systems reviewed & are unremarkable except as noted in HPI and below Constitutional Denies chills and Denies fever(s) Gastrointestinal Reports abdominal pain, Denies melena, Denies hematochezia, Reports loose stools, Denies nausea and Denies vomiting Psychiatric Reports difficulty concentrating (ADHD, on Adderall) [facility] Medical History Sleep apnea (Acute) Diverticulitis (Chronic ~06/2018) Adult ADHD (Acute) Sleep apnea (Acute) Kidney stones (Chronic) Surgical History Arthroscopy Family History Grandfather No problems noted. Social History household members: other details: 5 current occupational status: employed current occupation: [employer] pets and animals: Yes pets and animals: cat(s) frequency: 5-6 times per week Smoking/Tobacco Use Status: Never alcohol intake: never substance use type: does not use special kristin needs: No Meds Home Medications Medication Instructions Recorded Confirmed Type dextroamphetamine-amphetamine 30 mg PO DAILY 08/15/18 08/15/18 History [Adderall] levofloxacin [Levaquin] 750 mg PO DAILY #9 tab 08/15/18 08/15/18 Rx metronidazole [Flagyl] 500 mg PO TID #29 tab 08/15/18 08/15/18 Rx Allergies Allergy/AdvReac Type Severity Reaction Status Date / Time No Known Allergies Allergy Unverified 08/15/18 13:12 Exam Const General: cooperative, no acute distress and well developed Nutritional Appearance: well nourished Orientation: alert and oriented to person [facility] Head: normocephalic and atraumatic Eyes Sclera: sclerae normal Resp Effort & Inspection: normal respiratory effort and able to speak in complete sentences Cardio Jugular venous pressure: no JVD Rate: regular rate Rhythm: regular rhythm GI Inspection: non-distended Palpation: soft, not firm, no guarding, no masses, not rigid and tender (moderately tender to palpation) in the LLQ and suprapubicly Results Imaging Abdomen CT scan report/results: report reviewed and image reviewed CT scan - pelvis: report reviewed and image reviewed Imaging Studies: Patient Name: PARMJIT TADEO #: [id number]: ER Ordering Provider: : [facility] Primary Care Provider: Gavino Pinedo Date of Exam: 08/15/18Sex: M : 1975Age: 42 Exam(s) Addendum created by Anshu Lopez MD on 08/15/2018 3:16:24 PM EST THIS REPORT CONTAINS FINDINGS THAT MAY BE CRITICAL TO PATIENT CARE. The findings were verbally communicated via telephone conference with ROBERT PRESLEY at 3:16 PM EST on 08/15/2018. The findings were acknowledged and understood. Initial report created on 08/15/2018 3:11:02 PM EST EXAM: CT Abdomen and Pelvis With Contrast EXAM DATE/TIME: 08/15/2018 2:23 PM CLINICAL HISTORY: 42 years old, male; Pain; Abdominal pain; Localized; Left lower quadrant (llq); Patient HX: Llq pain. PT sts HX of diverticulitis. TECHNIQUE: Axial computed tomography images of the abdomen and pelvis with intravenous contrast. All CT scans at this facility use at least one of these dose optimization techniques: automated exposure control; mA and/or kV adjustment per patient size (includes targeted exams where dose is matched to clinical indication); or iterative reconstruction. Coronal and sagittal reformatted images were created and reviewed. CONTRAST: 100 ml of omnipaque 350 administered intravenously. COMPARISON: CT Private^ROUTINE ABDOMEN PELVIS WITH CONTRAST (Adult) 07/11/2018 8:29 PM FINDINGS: Lower thorax: No acute findings. ABDOMEN: Liver: Hepatomegaly 20 cm No mass. Gallbladder and bile ducts: Normal. No calcified stones. No ductal dilation. Pancreas: Normal. No ductal dilation. Spleen: Normal. No splenomegaly. Adrenals: Normal. No mass. Kidneys and ureters: Normal. No hydronephrosis. Stomach and bowel: Diverticulosis and Bowel wall thickening along the rectosigmoid colon. Moderate pericolonic inflammatory changes. Multiple focal perforations in the left lower quadrant. 2 cm fluid collection within the rectosigmoid could represent abscess (4:73) No evidence of bleeding. Findings consistent with acute diverticulitis. Appendix: Normal appendix PELVIS: Bladder: Unremarkable as visualized. Reproductive: Unremarkable as visualized. ABDOMEN and PELVIS: Intraperitoneal space: Multiple focal perforation subadjacent to the diverticulitis Bones/joints: Degenerative changes in the right sacroiliac joint Soft tissues: Unremarkable. Vasculature: Normal. No abdominal aortic aneurysm. Lymph nodes: Normal. No enlarged lymph nodes. IMPRESSION: Diverticulosis and Bowel wall thickening along the rectosigmoid colon. Moderate pericolonic inflammatory changes. Multiple focal perforations in the left lower quadrant. 2 cm fluid collection within the colon could represent abscess (4:73) No evidence of bleeding. Findings consistent with acute diverticulitis. Dictated and Authenticated by: Anshu Lopez MD. Ordering:ZEB Harris MD Ordered By: CC: Dictated By: Reports vrad 08/15/18 1423 08/15/18 1516 Transcribed By: Lena Garcia This is privileged, confidential information intended only for the provider named. Any use or distribution by any person other than this provider is strictly prohibited. If you receive this report in error, please notify us immediately at [phone] and return the original report to us at the address above. Thank-you. Last Vital Signs Temp 36.8 C 08/15/18 20:17 Pulse 98 H 08/15/18 20:17 Resp 16 08/15/18 20:17 BP 136/71 08/15/18 20:17 Pulse Ox 94 L 08/15/18 20:17
--- NOTE | 2018-08-15 21:11 | HPE_ITS ---
Date of service: 08/15/18 Time of Service: 21:07 Assessment and Plan (1) Diverticulitis: Current visit: Yes Status: Chronic 42 y/o male with an acute/chronic diverticulitis of the rectosigmoid colon which has had a smoldering course since June 2018. Symptoms appear to recur after he has completed each round of antibiotics. He has been on a fluoroquinolone/metronidazole x [address] scan noted. Will treat with ertapenem on this admission. Clear liquid diet. Follow-up labs in am.. See orders. Discussed with patient that there is a high likelihood that he will need a colon resection if the diverticulitis continues to have this recurrent/chronic course. He does not appear to be septic at this time. Would prefer to optimize him for a scheduled colon resection after his acute infection has subsided and he is able to tolerate a bowel prep. Further recommendations pending clinical course. All questions answered. Patient appeared to understand and agree with the discussion as outlined above. (2) Sleep apnea: Current visit: Yes Status: Acute Patient may use his home CPAP. History of Present Illness Chief Complaint: Abdominal pain Narrative: 42 y/o male admitted through the ED with recurrent diverticulitis. Patient has a known h/o kidney stones and had lower abdominal pain and hematuria in early June 2018. He was seen at [place] and found to have diverticulitis with a microburst. He was hospitalized on IV ABX x 4 days then discharged on po antibiotics for a 1-2 week course. He thinks that he was on Levaquin and Flagyl. He did follow-up with a surgeon in [place] and appeared to be better so he was instructed to follow-up prn. He states that he was seen in the ED here at [facility] at the end of June 2018 with recurrent symptoms after eating some popcorn. He was prescribed Cipro and Flagyl x 10 days then d/c'd from the ED. He has been off of antibiotics for about 2 weeks now. He awoke with severe LLQ pain around 0230 this morning. He denies nausea, vomiting, fevers, or chills. He did have a small, loose BM at 0230 this morning. He has been tolerating a diet. He notes some subjective swelling in the LLQ. WBC ~ 13k in the ED this afternoon. He had a CT abd/pelvis today with IV contrast only which demonstrated diverticulitis with microperforations and possible 2 cm abscess. He was to be admitted this afternoon but left AMA to take care of things at home prior to returning this evening for admission. 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 He has a h/o ADHD and sleep apnea for which he uses CPAP. He has never had a colonoscopy. He notes that his mother also had issues with diverticular disease. Review of Systems Review of Systems All systems reviewed & are unremarkable except as noted in HPI and below Constitutional Denies chills and Denies fever(s) Gastrointestinal Reports abdominal pain, Denies melena, Denies hematochezia, Reports loose stools, Denies nausea and Denies vomiting Psychiatric Reports difficulty concentrating (ADHD, on Adderall) [facility] Medical History Sleep apnea (Acute) Diverticulitis (Chronic ~06/2018) Adult ADHD (Acute) Sleep apnea (Acute) Kidney stones (Chronic) Surgical History Arthroscopy Family History Grandfather No problems noted. 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 pets and animals: Yes pets and animals: cat(s) frequency: 5-6 times per week Smoking/Tobacco Use Status: Never alcohol intake: never substance use type: does not use special kristin needs: No Meds Home Medications Medication Instructions Recorded Confirmed Type dextroamphetamine-amphetamine 30 mg PO DAILY 08/15/18 08/15/18 History [Adderall] levofloxacin [Levaquin] 750 mg PO DAILY #9 tab 08/15/18 08/15/18 Rx metronidazole [Flagyl] 500 mg PO TID #29 tab 08/15/18 08/15/18 Rx Allergies Allergy/AdvReac Type Severity Reaction Status Date / Time No Known Allergies Allergy Unverified 08/15/18 13:12 Exam Const General: cooperative, no acute distress and well developed Nutritional Appearance: well nourished Orientation: alert and oriented to person [facility] Head: normocephalic and atraumatic Eyes Sclera: sclerae normal Resp Effort & Inspection: normal respiratory effort and able to speak in complete sentences Cardio Jugular venous pressure: no JVD Rate: regular rate Rhythm: regular rhythm GI Inspection: non-distended Palpation: soft, not firm, no guarding, no masses, not rigid and tender (moderately tender to palpation) in the LLQ and suprapubicly Results Imaging Abdomen CT scan report/results: report reviewed and image reviewed CT scan - pelvis: report reviewed and image reviewed Imaging Studies: Patient Name: PARMJIT TADEO #: [id number]: ER Ordering Provider: : [facility] ER Primary Care Provider: Gavino Pinedo Date of Exam: 08/15/18Sex: M : 1975Age: 42 Exam(s) Addendum created by Anshu Lopez MD on 08/15/2018 3:16:24 PM EST THIS REPORT CONTAINS FINDINGS THAT MAY BE CRITICAL TO PATIENT CARE. The findings were verbally communicated via telephone conference with ROBERT PRESLEY at 3:16 PM EST on 08/15/2018. The findings were acknowledged and understood. Initial report created on 08/15/2018 3:11:02 PM EST EXAM: CT Abdomen and Pelvis With Contrast EXAM DATE/TIME: 08/15/2018 2:23 PM CLINICAL HISTORY: 42 years old, male; Pain; Abdominal pain; Localized; Left lower quadrant (llq); Patient HX: Llq pain. PT sts HX of diverticulitis. TECHNIQUE: Axial computed tomography images of the abdomen and pelvis with intravenous contrast. All CT scans at this facility use at least one of these dose optimization techniques: automated exposure control; mA and/or kV adjustment per patient size (includes targeted exams where dose is matched to clinical indication); or iterative reconstruction. Coronal and sagittal reformatted images were created and reviewed. CONTRAST: 100 ml of omnipaque 350 administered intravenously. COMPARISON: CT Private^ROUTINE ABDOMEN PELVIS WITH CONTRAST (Adult) 07/11/2018 8:29 PM FINDINGS: Lower thorax: No acute findings. ABDOMEN: Liver: Hepatomegaly 20 cm No mass. Gallbladder and bile ducts: Normal. No calcified stones. No ductal dilation. Pancreas: Normal. No ductal dilation. Spleen: Normal. No splenomegaly. Adrenals: Normal. No mass. Kidneys and ureters: Normal. No hydronephrosis. Stomach and bowel: Diverticulosis and Bowel wall thickening along the rectosigmoid colon. Moderate pericolonic inflammatory changes. Multiple focal perforations in the left lower quadrant. 2 cm fluid collection within the rectosigmoid could represent abscess (4:73) No evidence of bleeding. Findings consistent with acute diverticulitis. Appendix: Normal appendix PELVIS: Bladder: Unremarkable as visualized. Reproductive: Unremarkable as visualized. ABDOMEN and PELVIS: Intraperitoneal space: Multiple focal perforation subadjacent to the diverticulitis Bones/joints: Degenerative changes in the right sacroiliac joint Soft tissues: Unremarkable. Vasculature: Normal. No abdominal aortic aneurysm. Lymph nodes: Normal. No enlarged lymph nodes. IMPRESSION: Diverticulosis and Bowel wall thickening along the rectosigmoid colon. Moderate pericolonic inflammatory changes. Multiple focal perforations in the left lower quadrant. 2 cm fluid collection within the colon could represent abscess (4:73) No evidence of bleeding. Findings consistent with acute diverticulitis. Dictated and Authenticated by: Anshu Lopez MD. Ordering:ZEB Harris MD Ordered By: CC: Dictated By: Reports vrad 08/15/18 1423 08/15/18 1516 Transcribed By: Lena Garcia This is privileged, confidential information intended only for the provider named. Any use or distribution by any person other than this provider is strictly prohibited. If you receive this report in error, please notify us immediately at [phone] and return the original report to us at the address above. Thank-you. Last Vital Signs Temp 36.8 C 08/15/18 20:17 Pulse 98 H 08/15/18 20:17 Resp 16 08/15/18 20:17 BP 136/71 08/15/18 20:17 Pulse Ox 94 L 08/15/18 20:17
[2018-08-15] MEDS: HYDROmorphone 2 MG/ML VIAL 1 MG IVP (21:16)
[2018-08-15] MEDS: Normal Saline Flush 10 ML SYR IVP (21:17)
[2018-08-15] MEDS: Lactated Ringers 1,000 ML 125 ML IV (22:09)
[2018-08-15 22:45] VITALS: BP 138/82; PULSE 93; RESP 17; TEMP 37.1; O2SAT 95
[2018-08-15] MEDS: Enoxaparin 40 MG/0.4 ML SYR SC (23:15)
[2018-08-16] VITALS (12 sets, daily range): BP systolic 111–143; BP diastolic 68–88; PULSE 77–91; RESP 17–20; TEMP 36.9–38.7; O2SAT 94–96
[2018-08-16] MEDS: Lactated Ringers 1,000 ML 125 ML IV ×3 (05:20→22:32)
--- NOTE | 2018-08-16 06:45 | NUR.NOTE ---
Nursing Note: 08/15/18 2240H Patient admitted from the ER per stretcher. Awake and oriented x3. Transferred to bed per ambulation safely. With c/o LLQ abdominal pain. Admission assessment done. VSS. Oriented to the use of bed and call johnson
[2018-08-16 07:34] LABS: Abs Immature Grans 0.03 k/cumm (0.0-0.09); Absolute Basophil Count 0.02 k/cumm (0.0-0.2); Absolute Eosinophil Count 0.02 k/cumm (0.0-0.7); Absolute Lymphocyte Count 1.65 k/cumm (1.2-3.4); Absolute Monocyte Count 0.64 k/cumm (0.11-0.7); Basophils % 0.2; Eosinophils % 0.2; HCT 41.5 % (40.0-50.0); HGB 14.3 g/dL (13.5-17.5); Immature Grans % 0.3; Lymphocytes % 14.3; Mean Corp. HGB Concentration 34.5 g/dL (32.0-36.0); Mean Corpuscular Hemoglobin 29.9 pg (27.0-33.0); Mean Corpuscular Volume 86.8 fL (80-95); Mean Platelet Volume 10.9 fL (8.0-11.0); Monocytes % 5.5; Neutrophils % 79.5; Platelet Count 210 x1000/uL (130-400); RBC 4.78 m/cumm (4.50-6.00); RBC Distribution Width 13.4 % (11.8-14.1); White Blood Cell Count 11.56 k/cumm (4.4-10.8)
[2018-08-16 07:35] LABS: Absolute Neutrophil Count 9.19 k/cumm (1.2-6.7)
[2018-08-16 07:37] LABS: Anion Gap 8.1 mmol/L (3-11); BUN 12 mg/dL (7-18); CO2 25.9 mmol/L (21.0-32.0); CREATININE 0.78 mg/dL (0.70-1.30); Calcium 8.3 mg/dL (8.5-10.1); Chloride 101 mmol/L (98-107); Glucose 126 mg/dL (70-100); Potassium 3.6 mmol/L (3.5-5.1); Sodium 135 mmol/L (136-145)
--- NOTE | 2018-08-16 09:36 | PHARADMIT ---
Addendum entered by Evelyn Santoro 08/17/18 15:51: Pharmacy Note Subjective Objective VS-okay, labs okay Assessment IV fluids discontinued ertapenem continues (day 3 this evening) blood cultures pending Plan watch for micro results and for change to PO abx Original Note: Admission Pharmacy Clinical Review diverticulitis Code Status Full Code Current Weight wgt- 136 kg Renally Cleared and Narrow Therapeutic Index Meds CrCl~ 146 mL/min Meds-OK QTc Value / Action Taken none current BP Control, Fever BP- 135/84 Tmax- 37.1C Electrolytes reviewed Na-135 K+3.6 DVT Prophylaxis Lovenox Opiate Usage / Scheduled Bowel Regimen Ordered Yes No Plt/SCr for Heparin / Enoxaparin Plts-210 SCr-0.78 INR for Warfarin na H/H stable, WBC/Bands H&H- 14.3/41.5 WBC- 11.56 Antibiotic appropriateness Ertepenem Cultures and Sensitivities none Surgical ABX d/c within 24 hr na DM control / Insulin Dosing BG- 126 Heart Failure (Check EF%) (AGUEDA's, B-Block, Diuretics) none IV to PO Switch No Home Meds Reviewed Yes Home Meds Not Ordered Adderall, Flagyl, Levaquin Comments
[2018-08-16] MEDS: Ketorolac 30 MG/ML VIAL IVP ×3 (09:43→22:31)
[2018-08-16] MEDS: Normal Saline Flush 10 ML SYR IVP ×4 (09:43→19:57)
--- NOTE | 2018-08-16 10:58 | PDOC.CMIN ---
- If Service Date Differs Date of service: 08/16/18 Time of Service: 10:58 Care Management Initial Assess REASON FOR HOSPITALIZATION:: Diverticulitis PAST MEDICAL HISTORY/PAST SURGICAL HISTORY:: Sleep apnea, diverticulitis, narcolepsy with cataplexy, chronic bilateral low back pain with sciatic pain, depression, asthma PREVIOUS FUNCTIONAL STATUS/SOCIAL/FAMILY SUPPORTS:: Justin lives in [facility], he is a single father of 8 children. 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 He has 4 children that still live at home. CURRENT FUNCTIONAL STATUS:: Justin is sitting up in bed states he is having pain only with movement. He was hopeful that he could be discharged home. He is on IV antibiotics, and receiving pain control. He will drive himself home when he is ready for discharge. ADVANCE DIRECTIVES:: None on file he states he is not interested in completing at this time. Has patient been provided with information about the portal?: Yes Did the patient sign up for the portal?: No (Declines) CODE STATUS:: Full Code INSURANCE COVERAGE / FINANCIAL ISSUES:: Medicaid CURRENT HOME/COMMUNITY SERVICES/EQUIPMENT:: CPAP through [employer]. PRIMARY CARE PHYSICIAN:: Dr. Pinedo POTENTIAL DISCHARGE NEEDS:: Follow-up appointment scheduled with primary care and surgical provider as directed. PATIENT/FAMILY EDUCATION NEEDS:: Discharge education, follow-up plan of care, asked me 3 education and self-management. ANTICIPATED BARRIERS TO DISCHARGE:: None identified at this time. TRANSPORTATION:: Via private car self at time of discharge. PLAN:: Justin is currently receiving IV antibiotics, and pain control. Anticipate he will be discharged home with no additional services at time of discharge. He has his CPAP in the room which he will continue through his [employer] company [employer]. CM to continue to provide support discharge planning throughout patient's stay.
--- NOTE | 2018-08-16 11:11 | INITIAL_ITS ---
- If Service Date Differs Date of service: 08/16/18 Time of Service: 10:58 Care Management Initial Assess REASON FOR HOSPITALIZATION:: Diverticulitis PAST MEDICAL HISTORY/PAST SURGICAL HISTORY:: Sleep apnea, diverticulitis, narcolepsy with cataplexy, chronic bilateral low back pain with sciatic pain, depression, asthma PREVIOUS FUNCTIONAL STATUS/SOCIAL/FAMILY SUPPORTS:: Justin lives in [facility], he is a single father of 8 children. 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 He has 4 children that still live at home. CURRENT FUNCTIONAL STATUS:: Justin is sitting up in bed states he is having pain only with movement. He was hopeful that he could be discharged home. He is on IV antibiotics, and receiving pain control. He will drive himself home when he is ready for discharge. ADVANCE DIRECTIVES:: None on file he states he is not interested in completing at this time. Has patient been provided with information about the portal?: Yes Did the patient sign up for the portal?: No (Declines) CODE STATUS:: Full Code INSURANCE COVERAGE / FINANCIAL ISSUES:: Medicaid CURRENT HOME/COMMUNITY SERVICES/EQUIPMENT:: CPAP through [employer]. PRIMARY CARE PHYSICIAN:: Dr. Pinedo POTENTIAL DISCHARGE NEEDS:: Follow-up appointment scheduled with primary care and surgical provider as directed. PATIENT/FAMILY EDUCATION NEEDS:: Discharge education, follow-up plan of care, asked me 3 education and self-management. ANTICIPATED BARRIERS TO DISCHARGE:: None identified at this time. TRANSPORTATION:: Via private car self at time of discharge. PLAN:: Justin is currently receiving IV antibiotics, and pain control. Anticipate he will be discharged home with no additional services at time of discharge. He has his CPAP in the room which he will continue through his [employer] company [employer]. CM to continue to provide support discharge planning throughout patient's stay.
[2018-08-16] MEDS: HYDROmorphone 2 MG/ML VIAL 1 MG IVP ×2 (14:39→19:56)
--- NOTE | 2018-08-16 14:40 | W.PM.PROGNOT ---
Date of Service Date of service: 08/16/18 Time of Service: 14:40 Assessment and Plan (1) Diverticulitis: Current visit: Yes Status: Chronic 42 y/o male with an acute/chronic diverticulitis of the rectosigmoid colon which has had a smoldering course since June 2018. Symptoms appear to recur after he has completed each round of antibiotics. He has been on a fluoroquinolone/metronidazole x [address] scan noted. Will treat with ertapenem on this admission. Clear liquid diet. Afebrile. WBC improving. Follow-up labs in am. Previously discussed with patient that there is a high likelihood that he will need a colon resection if the diverticulitis continues to have this recurrent/chronic course. He does not appear to be septic at this time. Would prefer to optimize him for a scheduled colon resection after his acute infection has subsided and he is able to tolerate a bowel prep. Further recommendations pending clinical course. All questions answered. Patient appeared to understand and agree with the discussion as outlined above. (2) Sleep apnea: Current visit: Yes Status: Acute Patient may use his home CPAP. Subjective Interval history since last seen: Patient still having LLQ pain - ~ same or maybe slightly better than yesterday per patient. He is tolerating clears. He denies nausea or vomiting. (+) flatus. WBC decreased to 11.6. Exam Const General: cooperative and in distress mild (secondary to abdominal pain) Orientation: alert and oriented x3 HENMT Head: normocephalic and atraumatic Resp Effort & Inspection: normal respiratory effort and able to speak in complete sentences GI Palpation: soft, not firm, no guarding, no masses, not rigid and tender (moderately tender ~ same as on exam 08/15/18) in the LLQ and suprapubicly Auscultation: normal bowel sounds Skin General skin exam: no rashes or lesions noted and no jaundice Objective Objective Clinical Data: Abnormal lab results 08/16/18 08/16/18 Range/Units 07:00 07:00 WBC 11.56 H (4.4-10.8) k/cumm Absolute Neutrophils 9.19 H (1.2-6.7) k/cumm Sodium 135 L (136-145) mmol/L Glucose 126 H (70-100) mg/dL Calcium 8.3 L (8.5-10.1) mg/dL Vital Signs Temperature 36.9 C 08/16/18 12:00 Temperature Source Tympanic 08/16/18 12:00 Pulse 78 08/16/18 12:00 Pulse Rhythm Regular 08/16/18 07:23 Respiratory Rate 20 08/16/18 12:00 Respiratory Effort Non-Labored 08/16/18 07:23 Respiratory Depth Normal 08/16/18 07:23 Respiratory Pattern Normal 08/16/18 07:23 Blood Pressure 111/68 08/16/18 12:00 Blood Pressure Position Sitting 08/15/18 20:17 Pulse Oximetry 96 08/16/18 12:00 Oxygen Delivery Method Room Air 08/16/18 12:00 Oxygen Flow Rate 0 08/16/18 12:00 Pain Level 10 08/16/18 14:39 Intake & Output 08/15/18 08/16/18 08/16/18 23:59 11:59 23:59 Intake Total 100 / 100 1135.833 / 2619.166 1483.333 / 2619.166 Balance 100 / 100 1135.833 / 2619.166 1483.333 / 2619.166 Weight 136.078 kg Intake: IV 100 / 100 895.833 / 4500.949 0894.333 / 1899.166 Oral 240 / 720 480 / 720 Other: Urine Color Yellow Urine Appearance Clear Urine Odor Normal Comment Urine not seen, patient flushed Pt voiding in toilet ad enoc. Denies earlier problems of hesitancy. Will continue to monitor. Voiding Methods Toilet Toilet Laboratory Results WBC 11.56 k/cumm (4.4-10.8) H 08/16/18 07:00 RBC 4.78 m/cumm (4.50-6.00) 08/16/18 07:00 Hgb 14.3 g/dL (13.5-17.5) D 08/16/18 07:00 Hct 41.5 % (40.0-50.0) 08/16/18 07:00 MCV 86.8 fL (80-95) 08/16/18 07:00 MCH 29.9 pg (27.0-33.0) 08/16/18 07:00 MCHC 34.5 g/dL (32.0-36.0) 08/16/18 07:00 RDW 13.4 % (11.8-14.1) 08/16/18 07:00 Plt Count 210 x1000/uL (130-400) 08/16/18 07:00 MPV 10.9 fL (8.0-11.0) 08/16/18 07:00 Immature Gran % 0.3 08/16/18 07:00 Neutrophils % 79.5 08/16/18 07:00 Lymphocytes % 14.3 08/16/18 07:00 Monocytes % 5.5 08/16/18 07:00 Eosinophils % 0.2 08/16/18 07:00 Basophils % 0.2 08/16/18 07:00 Absolute Neutrophils 9.19 k/cumm (1.2-6.7) H 08/16/18 07:00 Absolute Lymphocytes 1.65 k/cumm (1.2-3.4) 08/16/18 07:00 Absolute Monocytes 0.64 k/cumm (0.11-0.7) 08/16/18 07:00 Absolute Eosinophils 0.02 k/cumm (0.0-0.7) 08/16/18 07:00 Absolute Basophils 0.02 k/cumm (0.0-0.2) 08/16/18 07:00 Sodium 135 mmol/L (136-145) L 08/16/18 07:00 Potassium 3.6 mmol/L (3.5-5.1) 08/16/18 07:00 Chloride 101 mmol/L (98-107) 08/16/18 07:00 Carbon Dioxide 25.9 mmol/L (21.0-32.0) 08/16/18 07:00 Anion Gap 8.1 mmol/L (3-11) 08/16/18 07:00 BUN 12 mg/dL (7-18) 08/16/18 07:00 Creatinine 0.78 mg/dL (0.70-1.30) 08/16/18 07:00 Estimated GFR/1.73 m2 >= 60.00 (mL/min/1.73m2) 08/16/18 07:00 Glucose 126 mg/dL (70-100) H 08/16/18 07:00 Calcium 8.3 mg/dL (8.5-10.1) L 08/16/18 07:00
[2018-08-16] MEDS: Acetaminophen 325 MG TAB 650 MG PO (18:38)
[2018-08-16] MEDS: Enoxaparin 40 MG/0.4 ML SYR SC (22:32)
[2018-08-17] VITALS (8 sets, daily range): BP systolic 111–124; BP diastolic 72–82; PULSE 69–100; RESP 16–20; TEMP 36.1–38; O2SAT 91–98
[2018-08-17] MEDS: Acetaminophen 325 MG TAB 650 MG PO ×2 (00:33→17:43)
[2018-08-17] MEDS: HYDROmorphone 2 MG/ML VIAL 1 MG IVP ×4 (00:34→17:43)
[2018-08-17] MEDS: Ketorolac 30 MG/ML VIAL IVP ×2 (04:47→10:37)
[2018-08-17] MEDS: Normal Saline Flush 10 ML SYR IVP ×2 (04:48→17:44)
[2018-08-17] MEDS: Lactated Ringers 1,000 ML 125 ML IV ×2 (06:12→15:21)
[2018-08-17 07:26] LABS: Abs Immature Grans 0.02 k/cumm (0.0-0.09); Absolute Basophil Count 0.02 k/cumm (0.0-0.2); Absolute Eosinophil Count 0.05 k/cumm (0.0-0.7); Absolute Lymphocyte Count 1.63 k/cumm (1.2-3.4); Absolute Monocyte Count 0.64 k/cumm (0.11-0.7); Absolute Neutrophil Count 7.66 k/cumm (1.2-6.7); Basophils % 0.2; Eosinophils % 0.5; HCT 40.3 % (40.0-50.0); HGB 13.7 g/dL (13.5-17.5); Immature Grans % 0.2; Lymphocytes % 16.3; Mean Corpuscular Hemoglobin 29.9 pg (27.0-33.0); Monocytes % 6.4; Neutrophils % 76.4; Platelet Count 196 x1000/uL (130-400); RBC 4.58 m/cumm (4.50-6.00); RBC Distribution Width 13.6 % (11.8-14.1); White Blood Cell Count 10.02 k/cumm (4.4-10.8)
--- NOTE | 2018-08-17 07:34 | W.PM.PROGNOT ---
Date of Service Date of service: 08/17/18 Time of Service: 07:15 Assessment and Plan (1) Diverticulitis: Current visit: Yes Status: Chronic A\\ Recurrent Diverticulitis. Treated x 2 as outpatient with Cipro Flagyl P\\ 1. Diet: advance to low fiber diet 2. Antibiotics: Continue imipenem. Discharge on Augmentin TID 3. Activity: encourage ambulation TID 4. If able to resolve this episode then will do a colonoscopy in 6-8 weeks and then discuss options. At this time patient wants surgery but it may not be necessary. I think he was just under treated the last 2 times. Subjective Interval history since last seen: Feeling better. Has been having less pain. + Flatus Exam Resp Effort & Inspection: normal respiratory effort Auscultation: clear to auscultation bilaterally Cardio Rate: regular rate Rhythm: regular rhythm GI Inspection: normal to inspection and obesity Palpation: soft, no hepatosplenomegaly and tender in the LLQ (mild. No rebound or guarding) Auscultation: normal bowel sounds Objective Objective Clinical Data: Abnormal lab results 08/16/18 08/16/18 08/17/18 Range/Units 07:00 07:00 06:42 WBC 11.56 H (4.4-10.8) k/cumm Absolute Neutrophils 9.19 H 7.66 H (1.2-6.7) k/cumm Sodium 135 L (136-145) mmol/L Glucose 126 H (70-100) mg/dL Calcium 8.3 L (8.5-10.1) mg/dL Vital Signs Temperature 97.0 F L 08/17/18 04:48 Temperature Source Tympanic 08/17/18 04:48 Pulse 69 08/17/18 04:48 Pulse Rhythm Regular 08/17/18 00:30 Respiratory Rate 16 08/17/18 00:34 Respiratory Effort 08/17/18 00:30 Respiratory Depth Normal 08/17/18 00:30 Respiratory Pattern Normal 08/17/18 00:30 Blood Pressure 124/77 08/17/18 04:48 Blood Pressure Position Sitting 08/15/18 20:17 Pulse Oximetry 96 08/17/18 04:48 Oxygen Delivery Method Cpap 08/17/18 04:48 Oxygen Flow Rate 0 08/17/18 00:34 Pain Level 9 08/17/18 05:47 Comment 08/16/18 20:16 Intake & Output 08/16/18 08/16/18 08/17/18 11:59 23:59 11:59 Intake Total 1135.833 / 4389.166 3253.333 / 4389.166 958.333 / 958.333 Output Total 400 / 400 Balance 1135.833 / 3989.166 2853.333 / 3989.166 958.333 / 958.333 Intake: IV 895.833 / 3029.166 2133.333 / 3029.166 958.333 / 958.333 Oral 240 / 1360 1120 / 1360 Output: Urine 400 / 400 Other: Urine Color Dark Joelle Urine Appearance Clear Urine Odor Normal Comment Urine not seen, patient flushed Pt now voiding in hat. Had not been until later this evening (approx. 1800). Pt denies sx. Voiding Methods Toilet Toilet Laboratory Results WBC 10.02 k/cumm (4.4-10.8) 08/17/18 06:42 RBC 4.58 m/cumm (4.50-6.00) 08/17/18 06:42 Hgb 13.7 g/dL (13.5-17.5) 08/17/18 06:42 Hct 40.3 % (40.0-50.0) 08/17/18 06:42 MCV 88.0 fL (80-95) 08/17/18 06:42 MCH 29.9 pg (27.0-33.0) 08/17/18 06:42 MCHC 34.0 g/dL (32.0-36.0) 08/17/18 06:42 RDW 13.6 % (11.8-14.1) 08/17/18 06:42 Plt Count 196 x1000/uL (130-400) 08/17/18 06:42 MPV 11.0 fL (8.0-11.0) 08/17/18 06:42 Immature Gran % 0.2 08/17/18 06:42 Neutrophils % 76.4 08/17/18 06:42 Lymphocytes % 16.3 08/17/18 06:42 Monocytes % 6.4 08/17/18 06:42 Eosinophils % 0.5 08/17/18 06:42 Basophils % 0.2 08/17/18 06:42 Absolute Neutrophils 7.66 k/cumm (1.2-6.7) H 08/17/18 06:42 Absolute Lymphocytes 1.63 k/cumm (1.2-3.4) 08/17/18 06:42 Absolute Monocytes 0.64 k/cumm (0.11-0.7) 08/17/18 06:42 Absolute Eosinophils 0.05 k/cumm (0.0-0.7) 08/17/18 06:42 Absolute Basophils 0.02 k/cumm (0.0-0.2) 08/17/18 06:42 Sodium 135 mmol/L (136-145) L 08/16/18 07:00 Potassium 3.6 mmol/L (3.5-5.1) 08/16/18 07:00 Chloride 101 mmol/L (98-107) 08/16/18 07:00 Carbon Dioxide 25.9 mmol/L (21.0-32.0) 08/16/18 07:00 Anion Gap 8.1 mmol/L (3-11) 08/16/18 07:00 BUN 12 mg/dL (7-18) 08/16/18 07:00 Creatinine 0.78 mg/dL (0.70-1.30) 08/16/18 07:00 Estimated GFR/1.73 m2 >= 60.00 (mL/min/1.73m2) 08/16/18 07:00 Glucose 126 mg/dL (70-100) H 08/16/18 07:00 Calcium 8.3 mg/dL (8.5-10.1) L 08/16/18 07:00
[2018-08-17 07:40] LABS: Anion Gap 8.8 mmol/L (3-11); BUN 11 mg/dL (7-18); CO2 26.2 mmol/L (21.0-32.0); CREATININE 1.03 mg/dL (0.70-1.30); Calcium 8.6 mg/dL (8.5-10.1); Chloride 102 mmol/L (98-107); Glucose 112 mg/dL (70-100); Magnesium 1.8 mg/dL (1.8-2.4); Potassium 3.7 mmol/L (3.5-5.1); Sodium 137 mmol/L (136-145)
[2018-08-17] MEDS: Polyethylene Glycol 3350 17 GM PACKET PO (08:16)
--- NOTE | 2018-08-17 11:49 | PDOC.CMPRO ---
- If Service Date Differs Date of service: 08/17/18 Time of Service: 11:49 Care Management Progress Note S/O: CM met with patient at the bedside he is hopeful that he will be discharged home today. CM provided education related to diverticulitis and treatment with antibiotics. Justin has children at home that he needs to supervise and feels that he needs to go home today. He continues to have pain in his abdomen with movement however feels he can manage this at home. A:Justin is 42 year old male admitted with diverticulitis. P:Justin is currently receiving IV antibiotics, and pain control. Anticipate he will be discharged home with no additional services at time of discharge. He has his CPAP in the room which he will continue through his [employer] company [employer]. CM to continue to provide support discharge planning throughout patient's stay.
--- NOTE | 2018-08-17 12:05 | CMPROGNOTE_ITS ---
- If Service Date Differs Date of service: 08/17/18 Time of Service: 11:49 Care Management Progress Note S/O: CM met with patient at the bedside he is hopeful that he will be discharged home today. CM provided education related to diverticulitis and treatment with antibiotics. Justin has children at home that he needs to supervise and feels that he needs to go home today. He continues to have pain in his abdomen with movement however feels he can manage this at home. A:Justin is 42 year old male admitted with diverticulitis. P:Justin is currently receiving IV antibiotics, and pain control. Anticipate he will be discharged home with no additional services at time of discharge. He has his CPAP in the room which he will continue through his [employer] company [employer]. CM to continue to provide support discharge planning throughout patient's stay.
--- NOTE | 2018-08-17 16:49 | W.PM.PROGNOT ---
Date of Service Date of service: 08/17/18 Time of Service: 16:49 Assessment and Plan (1) Diverticulitis: Current visit: Yes Status: Chronic A\\ Diverticuitis with phlegmon and some free air P\\ Needs to have some more IV antibiotics Needs to get up and ambulate Low grade fevers but normal WBC count today- will order ISP and have patient get up and walk Saline lock IV and continue low fiber diet Subjective Interval history since last seen: Doing OK this afternoon. Really wants to go home. Denies pain with eating. Still without BM. + Flatus Has had low grade fevers. Has not been ambulating at all. Exam GI Inspection: normal to inspection Palpation: soft and tender in the LLQ Objective Objective Clinical Data: Abnormal lab results 08/17/18 08/17/18 Range/Units 06:42 06:42 Absolute Neutrophils 7.66 H (1.2-6.7) k/cumm Glucose 112 H (70-100) mg/dL Vital Signs Temperature 100.4 F H 08/17/18 16:40 Temperature Source Tympanic 08/17/18 11:45 Pulse 76 08/17/18 11:45 Pulse Rhythm Regular 08/17/18 10:42 Respiratory Rate 18 08/17/18 11:45 Respiratory Effort Non-Labored 08/17/18 10:42 Respiratory Depth Normal 08/17/18 10:42 Respiratory Pattern Normal 08/17/18 10:42 Blood Pressure 111/73 08/17/18 11:45 Blood Pressure Position Sitting 08/15/18 20:17 Pulse Oximetry 98 08/17/18 11:45 Oxygen Delivery Method Room Air 08/17/18 11:45 Oxygen Flow Rate 0 08/17/18 11:45 Pain Level 8 08/17/18 12:50 Comment 08/17/18 16:40 Intake & Output 08/16/18 08/17/18 08/17/18 23:59 11:59 23:59 Intake Total 3253.333 / 4389.166 1318.333 / 2798.333 1480 / 2798.333 Output Total 400 / 400 Balance 2853.333 / 3989.166 1318.333 / 2798.333 1480 / 2798.333 Intake: IV 2133.333 / 3029.166 958.333 / 7114.101 1103 / 1958.333 Oral 1120 / 1360 360 / 840 480 / 840 Output: Urine 400 / 400 Other: Urine Color Dark Joelle Urine Appearance Clear Urine Odor Normal Comment Pt now voiding in hat. Had not been until later this evening (approx. 1800). Pt denies sx. Voiding Methods Toilet Laboratory Results WBC 10.02 k/cumm (4.4-10.8) 08/17/18 06:42 RBC 4.58 m/cumm (4.50-6.00) 08/17/18 06:42 Hgb 13.7 g/dL (13.5-17.5) 08/17/18 06:42 Hct 40.3 % (40.0-50.0) 08/17/18 06:42 MCV 88.0 fL (80-95) 08/17/18 06:42 MCH 29.9 pg (27.0-33.0) 08/17/18 06:42 MCHC 34.0 g/dL (32.0-36.0) 08/17/18 06:42 RDW 13.6 % (11.8-14.1) 08/17/18 06:42 Plt Count 196 x1000/uL (130-400) 08/17/18 06:42 MPV 11.0 fL (8.0-11.0) 08/17/18 06:42 Immature Gran % 0.2 08/17/18 06:42 Neutrophils % 76.4 08/17/18 06:42 Lymphocytes % 16.3 08/17/18 06:42 Monocytes % 6.4 08/17/18 06:42 Eosinophils % 0.5 08/17/18 06:42 Basophils % 0.2 08/17/18 06:42 Absolute Neutrophils 7.66 k/cumm (1.2-6.7) H 08/17/18 06:42 Absolute Lymphocytes 1.63 k/cumm (1.2-3.4) 08/17/18 06:42 Absolute Monocytes 0.64 k/cumm (0.11-0.7) 08/17/18 06:42 Absolute Eosinophils 0.05 k/cumm (0.0-0.7) 08/17/18 06:42 Absolute Basophils 0.02 k/cumm (0.0-0.2) 08/17/18 06:42 Sodium 137 mmol/L (136-145) 08/17/18 06:42 Potassium 3.7 mmol/L (3.5-5.1) 08/17/18 06:42 Chloride 102 mmol/L (98-107) 08/17/18 06:42 Carbon Dioxide 26.2 mmol/L (21.0-32.0) 08/17/18 06:42 Anion Gap 8.8 mmol/L (3-11) 08/17/18 06:42 BUN 11 mg/dL (7-18) 08/17/18 06:42 Creatinine 1.03 mg/dL (0.70-1.30) 08/17/18 06:42 Estimated GFR/1.73 m2 >= 60.00 (mL/min/1.73m2) 08/17/18 06:42 Glucose 112 mg/dL (70-100) H 08/17/18 06:42 Calcium 8.6 mg/dL (8.5-10.1) 08/17/18 06:42 Magnesium 1.8 mg/dL (1.8-2.4) 08/17/18 06:42
[2018-08-17] MEDS: Enoxaparin 40 MG/0.4 ML SYR SC (22:13)
[2018-08-18] MEDS: Acetaminophen 325 MG TAB 650 MG PO (00:46)
[2018-08-18] MEDS: HYDROmorphone 2 MG/ML VIAL 1 MG IVP (01:16)
[2018-08-18] MEDS: Normal Saline Flush 10 ML SYR IVP ×2 (01:16→10:56)
[2018-08-18 03:31] VITALS: BP 116/77; PULSE 64; RESP 16; TEMP 37; O2SAT 95
[2018-08-18 07:58] VITALS: BP 119/77; PULSE 76; RESP 18; TEMP 36.4; O2SAT 93
--- NOTE | 2018-08-18 09:53 | W.PM.PROGNOT ---
Date of Service Date of service: 08/18/18 Time of Service: 09:53 Assessment and Plan (1) Diverticulitis: Start date: 08/18/18 Start time: 09:54 Current visit: Yes Status: Chronic Patient condition has improved over his admission Currently afebrile had a bowel movement and tolerating a diet A thorough discussion with the patient about his future with this disease process as well as possible surgeries A discussion about optimizing his condition for an elective resection in the future if he were to avoid any possible relapses with his current diverticulitis Possible discharge home today Exam GI Inspection: normal to inspection Palpation: soft and tender Percussion: normal to percussion Auscultation: normal bowel sounds Objective Objective Clinical Data: Vital Signs Temperature 36.4 C L 08/18/18 07:58 Temperature Source Tympanic 08/18/18 07:58 Pulse 76 08/18/18 07:58 Pulse Rhythm Regular 08/18/18 00:00 Respiratory Rate 18 08/18/18 07:58 Respiratory Effort 08/18/18 00:00 Respiratory Depth Normal 08/18/18 00:00 Respiratory Pattern Normal 08/18/18 00:00 Blood Pressure 119/77 08/18/18 07:58 Blood Pressure Position Sitting 08/15/18 20:17 Pulse Oximetry 93 L 08/18/18 07:58 Oxygen Delivery Method Room Air 08/18/18 07:58 Oxygen Flow Rate 0 08/18/18 07:58 Pain Level 5 08/18/18 07:58 Comment 08/17/18 16:40 Intake & Output 08/17/18 08/17/18 08/18/18 11:59 23:59 11:59 Intake Total 1318.333 / 3698.333 2380 / 3698.333 1800 / 1800 Balance 1318.333 / 3698.333 2380 / 3698.333 1800 / 1800 Intake: IV 958.333 / 0715.382 5781 / 6334.979 8808 / 1100 Oral 360 / 1740 1380 / 1740 700 / 700 Other: Urine Appearance Clear Comment void x 1 i toiolet per pt Stool Size Moderate Stool Characteristics Soft Liquid Voiding Methods Toilet Toilet Laboratory Results WBC 10.02 k/cumm (4.4-10.8) 08/17/18 06:42 RBC 4.58 m/cumm (4.50-6.00) 08/17/18 06:42 Hgb 13.7 g/dL (13.5-17.5) 08/17/18 06:42 Hct 40.3 % (40.0-50.0) 08/17/18 06:42 MCV 88.0 fL (80-95) 08/17/18 06:42 MCH 29.9 pg (27.0-33.0) 08/17/18 06:42 MCHC 34.0 g/dL (32.0-36.0) 08/17/18 06:42 RDW 13.6 % (11.8-14.1) 08/17/18 06:42 Plt Count 196 x1000/uL (130-400) 08/17/18 06:42 MPV 11.0 fL (8.0-11.0) 08/17/18 06:42 Immature Gran % 0.2 08/17/18 06:42 Neutrophils % 76.4 08/17/18 06:42 Lymphocytes % 16.3 08/17/18 06:42 Monocytes % 6.4 08/17/18 06:42 Eosinophils % 0.5 08/17/18 06:42 Basophils % 0.2 08/17/18 06:42 Absolute Neutrophils 7.66 k/cumm (1.2-6.7) H 08/17/18 06:42 Absolute Lymphocytes 1.63 k/cumm (1.2-3.4) 08/17/18 06:42 Absolute Monocytes 0.64 k/cumm (0.11-0.7) 08/17/18 06:42 Absolute Eosinophils 0.05 k/cumm (0.0-0.7) 08/17/18 06:42 Absolute Basophils 0.02 k/cumm (0.0-0.2) 08/17/18 06:42 Sodium 137 mmol/L (136-145) 08/17/18 06:42 Potassium 3.7 mmol/L (3.5-5.1) 08/17/18 06:42 Chloride 102 mmol/L (98-107) 08/17/18 06:42 Carbon Dioxide 26.2 mmol/L (21.0-32.0) 08/17/18 06:42 Anion Gap 8.8 mmol/L (3-11) 08/17/18 06:42 BUN 11 mg/dL (7-18) 08/17/18 06:42 Creatinine 1.03 mg/dL (0.70-1.30) 08/17/18 06:42 Estimated GFR/1.73 m2 >= 60.00 (mL/min/1.73m2) 08/17/18 06:42 Glucose 112 mg/dL (70-100) H 08/17/18 06:42 Calcium 8.6 mg/dL (8.5-10.1) 08/17/18 06:42 Magnesium 1.8 mg/dL (1.8-2.4) 08/17/18 06:42
[2018-08-18] MEDS: Ketorolac 30 MG/ML VIAL IVP (10:56)
[2018-08-18 12:13] VITALS: BP 119/76; PULSE 73; RESP 18; TEMP 36.7; O2SAT 96
--- NOTE | 2018-08-18 13:45 | DSE_ITS ---
Date of service: 08/18/18 Time of Service: 13:44 DS: Diagnosis Discharge Diagnosis (1) Diverticulitis: Status: Chronic Discharge Plan Disposition Patient Disposition: HOME Condition: Improving Discharge Details Chief Complaint: Abd Prob Reason For Visit: DIVERTICULITIS Admit Date/Time: 08/15/18 20:32 Admit Provider: Poncho Ozuna Attending Provider: Poncho Ozuna Primary Care Provider: Gavino Pinedo ED Provider: Kimberly [facility] Hospital Course: 42 y/o male presented to the ER on 08/15/18 for complaints of LLQ that started in the night. He was treated in 2017 for Diverticulitis at which time he was admitted and treated with IV ATB x 4 days followed by cipro/flagyl x 2 weeks. His symptoms returned and he was treated with a second course of Cipro/Flagyl. He reported on 08/15 that his symptoms at time of arrival were similar to what he had experienced in Jun. Er performed a CT of abdomen and pelvis which showed diverticulitis with micro- perforation and question of 2 cm abscess. He was admitted to the surgical service for non-surgical treatment to include IV fluids, IV antibiotics of Ert apenem and bowel rest. Over the following 3 days his abdominal pain improved with IV antibiotics and clear liquids. He was started on a low fiber diet on 08/17 which he has tolerated without any worsening of his abdominal pain. He denies any symptoms of nausea, vomiting or diarrhea at this time. His abdominal pain has been well managed with Toradol. He has been using the incentive spirometer and ambulating ADLIB. He will need to complete 10 more days of Augmentin and will need to follow up in the office in 2 weeks on at 1:45pm to discuss having a Colonoscopy for further evaluation of the extent of his diverticulosis. After which discussion regarding partial bowel resection will be discussed due his persistent symptoms and the extent of his pathology. Home Meds and New Rx's Prescriptions: New amoxicillin-pot clavulanate 875-125 mg tablet 1 tab PO TID 10 Days Qty: 30 RF: 0 Continued dextroamphetamine-amphetamine [Adderall] 30 mg Tablet 30 mg PO DAILY RF: 0 Discontinued metronidazole [Flagyl] 500 mg tablet 500 mg PO TID Qty: 29 RF: 0 levofloxacin [Levaquin] 750 mg tablet 750 mg PO DAILY Qty: 9 RF: 0 Discharge Instructions Instructions: Diverticulitis (DC), Low Fiber Diet (DC), Low Fiber Diet (GEN), Diverticulitis Diet (DC), Diverticulitis Diet (GEN) Stand Alone Forms: Nursing Discharge Form Referrals: Poncho Ozuna MD [ [facility] STAFF PHYSICIAN] - Activity:: No strenuous activity. Equipment/Supplies:: No Equipment Needed Diet:: Low Fiber Discharge Orders Discharge Orders: Discharge Order (Routine); Ordered 08/18/18 Ordered By: Sharlene Gómez Exam Const General: cooperative, healthy appearing and comfortable Orientation: alert and oriented x3 Resp Effort & Inspection: normal respiratory effort, no audible wheezes and no cough Auscultation: clear to auscultation bilaterally Cardio Jugular venous pressure: no JVD Palpation: normal PMI Rate: regular rate Rhythm: regular rhythm Heart Sounds: S1 normal, S2 normal and no murmurs GI Inspection: normal to inspection and non-distended Auscultation: normal bowel sounds DS: Data Vitals/I&O Vitals and I&O: Vital Signs Temperature 36.7 C 08/18/18 12:13 Temperature Source Tympanic 08/18/18 12:13 Pulse 73 08/18/18 12:13 Pulse Rhythm Regular 08/18/18 11:16 Respiratory Rate 18 08/18/18 12:13 Respiratory Effort Non-Labored 08/18/18 11:16 Respiratory Depth Normal 08/18/18 11:16 Respiratory Pattern Normal 08/18/18 11:16 Blood Pressure 119/76 08/18/18 12:13 Blood Pressure Position Sitting 08/15/18 20:17 Pulse Oximetry 96 08/18/18 12:13 Oxygen Delivery Method Room Air 08/18/18 12:13 Oxygen Flow Rate 0 08/18/18 12:13 Pain Level 7 08/18/18 10:56 Comment 08/17/18 16:40 Intake & Output 08/17/18 08/18/18 08/18/18 23:59 11:59 23:59 Intake Total 2380 / 3698.333 1820 / 1820 Balance 2380 / 3698.333 1820 / 1820 Intake: IV 1000 / 3984.823 6808 / 1120 Oral 1380 / 1740 700 / 700 Other: Urine Appearance Clear Comment void x 1 i toiolet per pt Stool Size Moderate Stool Characteristics Soft Liquid Voiding Methods Toilet Toilet Labs on day of discharge: Preliminary micro results at discharge 08/16/18 19:45 Blood Culture - Preliminary Blood NO GROWTH 24 HOURS 08/16/18 19:35 Blood Culture - Preliminary Blood NO GROWTH 24 HOURS PFSH Medical History Sleep apnea (Acute) Diverticulitis (Chronic ~06/2018) Adult ADHD (Acute) Sleep apnea (Acute) Kidney stones (Chronic) Surgical History Arthroscopy Family History Grandfather No problems noted. 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
--- NOTE | 2018-08-26 13:44 | ED.GENADUL_ITS ---
Discharge Plan Disposition Condition: Improving Discharge Details Chief Complaint: Abd Prob Reason For Visit: DIVERTICULITIS Admit Date/Time: 08/15/18 20:32 Admit Provider: Poncho Ozuna Attending Provider: Poncho Ozuna Primary Care Provider: Gavino Pinedo ED Provider: Kimberly Presley Discharge Instructions Activity:: No strenuous activity. Equipment/Supplies:: No Equipment Needed Diet:: Low Fiber Discharge Orders Discharge Orders: Discharge Order (Routine); Ordered 08/18/18 Ordered By: Sharlene Gómez Discharge Data Discharge Date/Time-TO BE ENTERED AT DEPARTURE: 08/15/18 22:33 Medical Decision Making Justin Mancia is a 42-year-old man who was seen here earlier today for left lower quadrant pain since last night, diagnosed with diverticulitis with microperforations and possible abscess on CT. at that time was for admission to the surgical service. Patient elected to leave AGAINST MEDICAL ADVICE. Patient now returns, having taking care of personal matters, wishes to be admitted as was previously planned. Recent evaluation with CT imaging and labs, no further emergent testing indicated at this time. Plan for admission to Dr. Ozuna of surgery. Impression: Diverticulitis Disposition: [facility] inpatient Medical Records Medical records reviewed: Yes I reviewed the patient's medical records. HPI General Mode of arrival: ambulatory . Date/Time Provider Initiated Documentation: 08/15/18 20:20 . Limitations to Documentation: no limitations . Information obtained by: RN notes reviewed and old records reviewed . HPI Narrative: Justin Mancia is a 42-year-old man with history of ADHD, sleep apnea, kidney stones, 2 episodes of diverticulitis 06/30 presented to the emergency department earlier today for abdominal pain since last night. He was subsequently diagnosed by CAT scan with diverticulitis with microperforations and possible abscess. After diagnosis, plan for admission with ertapenem to the surgical service. Patient declined admission AGAINST MEDICAL ADVICE, stated that he had to take care of some things at home, but will return later. He was sent home with p.o. antibiotics. Patient has now returned for admission. He reports he continues to have some mild to moderate left lower quadrant pain that is unchanged from his prior encounter earlier today. He denies having any other symptoms. Please see my note for earlier encounter today. Related Data Home Medications Medication Instructions Recorded Confirmed amoxicillin-pot clavulanate 1 tab PO TID 10 Days #30 tab 08/18/18 08/25/18 levofloxacin 750 mg tablet 750 mg PO DAILY 08/25/18 08/25/18 metronidazole 500 mg tablet 500 mg PO TID 08/25/18 08/25/18 dextroamphetamine-amphetamine ER 30 mg PO QAM #30 cap MDD 1 08/26/18 30 mg 24hr capsule,extend release Previous Rx's Medication Instructions Recorded amoxicillin-pot clavulanate 1 tab PO TID 10 Days #30 tab 08/18/18 dextroamphetamine-amphetamine ER 30 mg PO QAM #30 cap MDD 1 08/26/18 30 mg 24hr capsule,extend release Allergies Allergy/AdvReac Type Severity Reaction Status Date / Time No Known Allergies Allergy Unverified 08/25/18 13:05 General Stated Complaint: Abd Prob IVELISSE: 3 Review of Systems Review of Systems Constitutional: denies fevers Eyes: denies eye pain ENT: denies facial pain, dental pain, sore throat Cardiovascular: denies chest pain Respiratory: denies SOB, cough GI: denies vomiting, reports abdominal pain : denies flank pain MSK: denies back pain, neck pain, arthralgias, myalgias Skin: denies rash Neuro: denies headaches, numbness, weakness PFSH Medical History Sleep apnea (Acute) Diverticulitis (Chronic ~06/2018) Adult ADHD (Acute) Sleep apnea (Acute) Kidney stones (Chronic) Surgical History Arthroscopy Family History Grandfather No problems noted. 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 pets and animals: Yes pets and animals: cat(s) frequency: 5-6 times per week Smoking and Tabacco status: Never alcohol intake: never substance use type: does not use special kristin needs: No Exam Narrative Exam Narrative: Constitutional: well and [id number], pleasant, conversi ng normally HENT: head atraumatic/normocephalic/normal inspection, mucous membranes moist Eyes: conjunctiva normal, sclera normal, pupils 3mm b/l Neck: no stridor, normal ROM, trachea midline Resp: normal work of breathing, LCTAB Cardio: normal rate, normal rhythm, no murmur appreciated GI: abdomen soft, left lower quadrant focally tender, no rebound or guarding, non-distended Skin: warm, dry, normal color, no rash Neuro: alert, not altered, grossly non-focal, normal tone Ext: no edema Psych: normal mood, normal affect, normal behavior Course Vital Signs Temperature 36.8 C 08/15/18 20:17 Pulse 98 H 08/15/18 20:17 Respiratory Rate 16 08/15/18 20:17 Blood Pressure 136/71 08/15/18 20:17 Pulse Oximetry 94 L 08/15/18 20:17 Temperature 36.8 C 08/15/18 20:17 Pulse 98 H 08/15/18 20:17 Respiratory Rate 16 08/15/18 20:17 Respiratory Effort 08/15/18 20:17 Blood Pressure 136/71 08/15/18 20:17 Blood Pressure Position Sitting 08/15/18 20:17 Pulse Oximetry 94 L 08/15/18 20:17 Oxygen Delivery Method Room Air 08/15/18 20:17 Oxygen Flow Rate 0 08/15/18 20:17 Pain Level 10 08/15/18 20:17
== END 2018-08-18 14:40 | disposition home or self-care (01) | DRG 392 ==
LOC: ER 22:23 → MS 22:35
PROVIDERS: Admitting Provider Surgery; Emergency Provider Student in an Organized Health Care Education/Training Program; PCP Family Medicine; Visit Provider Surgery
DX: K57.20 Diverticulitis of large intestine with perforation and abscess without bleeding (principal); G47.33 Obstructive sleep apnea (adult) (pediatric); F90.9 Attention-deficit hyperactivity disorder, unspecified type; R10.32 Left lower quadrant pain; Z53.29 Procedure and treatment not carried out because of patient's decision for other reasons; K57.32 Diverticulitis of large intestine without perforation or abscess without bleeding
CPT/HCPCS: 36415; 80048; 80053; 83690; 87040; 96374; 99222; 99232; 99238; 99285; J1650; NC; 74177; 81003; 81015; 83735; 85025; 99284; J1335; J1885; J3490

== ENCOUNTER 2018-09-13 21:00 | Emergency (ER) | payer MEDICAID, SELFPAY ==
[2018-09-13 21:07] VITALS: BP 127/71; PULSE 71; RESP 16; TEMP 36.7; O2SAT 97
--- NOTE | 2018-09-13 21:14 | DI.CT_ITS ---
SYMPTOMS/DIAGNOSIS: MIDLINE ABDOMINAL PAIN, S/P COLON RESECTION [address] OF THE ABDOMEN AND PELVIS: Comparison is made with August,. The patient is status post colonic resection two weeks ago. There is no evidence of bowel obstruction or perforation. There is some stranding in the fat surrounding the descending colon and around the area of the anastomosis. The inflammation of the sigmoid has decreased when compared with the previous exam. The findings could be residual. There is no drainable collection. The appendix appears normal. There is a moderate quantity of stool. The bladder and prostate are unremarkable. There is a surgical scar in the midline of the lower abdomen. There is no evidence of abscess or fluid collection in the scar. The lung bases show minimal dependent changes. The liver, gallbladder, spleen, pancreas, adrenals and kidneys are unremarkable. IMPRESSION: Status post sigmoid resection. The anastomosis appears intact. There is some residual stranding around the descending and sigmoid colon. The findings could be residual post surgery. No obstruction, abscess or drainable fluid collection is present.
--- NOTE | 2018-09-13 21:21 | ED.GENADUL_ITS ---
Discharge Plan Disposition Patient Disposition: HOME Condition: Stable Discharge Details Chief Complaint: Abd Prob Clinical Impression: Abdominal pain, S/P colon resection Primary Care Provider: Gavino Pinedo ED Provider: Shannan Black Home Meds and New Rx's Prescriptions: No Action No Known Home Meds RF: 0 Discharge Instructions Instructions: Abdominal Pain (ED) Additional Instructions: Drink plenty of fluids and get plenty of rest. Take Tylenol as needed and directed for pain. Call your surgeons at [facility] tomorrow to schedule follow-up with patient for reevaluation if your pain persists or worsens. Return immediately to the emergency department any worsening or concerning symptoms. Discharge Data Discharge Physician: Shannan Black Medical Decision Making 42-year-old male who presents the ED with a complaint of persistent abdominal pain and sensation of hard lumps around his incision site since his colon resection s/p diverticulitis this month at [facility], getting progressively worse. Vitals within normal limits. Incision appears to be healing well, there are mildly tender indurated areas extending vertically along incision line approximately 3cm on sides bilaterally. There is no fluctuance, drainage, erythema or bleeding. Remainder of abdomen appears soft. Patient appears nontoxic. Due to recent surgery, will attempt to obtain records, place an IV, labs, CT abdomen, bolus IV fluids. Discussed with general surgery here and Dr. Neely evaluated patient at bedside and did not find any acute findings on exam, and patient areas areas of raised induration around incision line are expected post surgery and do not appear concerning. Unable to obtain records from [facility]. [place] unable to access records. Labs and imaging reviewed. White blood cell count and electrolytes within normal limits. Lipase negative. CT notes persistent inflammation/stranding in the pericolonic fat but overall inflammation in the sigmoid colon and anastomosis appears compared to prior to previous preoperative exam. Mild colitis not excluded. Case discussed and images reviewed with [facility] surgery Dr. Stout -no acute significant findings noted on CT. Patient okay for discharge home. Recommend patient follow-up with him in the outpatient for reevaluation as needed. Medical Records Medical records reviewed: Yes I reviewed the patient's medical records. Imaging Data Radiologic Study: Radiologist's impression: CT Abdomen and Pelvis With Contrast EXAM DATE/TIME: 09/13/2018 9:17 PM FINDINGS: Lower thorax: There is mild dependent atelectasis at the lung bases. Pleural effusion is not seen. ABDOMEN: Liver: There is then a infiltration of the liver. There is no discrete mass. Gallbladder and bile ducts: Gallbladder is nondistended. No calcified gallstones. No biliary ductal dilatation. Pancreas: Pancreas unremarkable Spleen: Spleen is unremarkable Adrenals: Adrenals are unremarkable Kidneys and ureters: No radiopaque urinary tract calculi. No evidence of hydronephrosis. Stomach and bowel: When compared with the patient's prior examination of August there has been interval resection of the sigmoid colon. Surgical sutures are seen at the rectosigmoid junction. There is persistent inflammation and stranding in the pericolonic fat particularly involving the distal descending colon and the sigmoid colon. And appears improved at the level of the sigmoid colon where the surgical anastomosis is but extends more proximally into the descending colon than on the patient's prior exam. There is however no evidence of a discrete or drainable fluid collection, abscess or free intraperitoneal air. There is no evidence of bowel obstruction. There is no discrete mass identified. Appendix: No evidence of appendicitis. PELVIS: Bladder: Bladder is unremarkable Reproductive: Prostate gland, seminal vesicles are unremarkable ABDOMEN and PELVIS: Intraperitoneal space: No significant ascites focal collections or free intraperitoneal air Bones/joints: There is no acute or destructive bony abnormality identified. Soft tissues: There is a midline ventral incision and mild skin thickening and edema in the subcutaneous fat. There is no evidence of a discrete or drainable subcutaneous collection or abscess. Vasculature: Aorta is nonaneurysmal. Lymph nodes: No significant adenopathy. IMPRESSION: Interval colonic resection. Persistent inflammation/stranding in the pericolonic fat particularly adjacent to the distal descending and sigmoid colon. Superior extension adjacent to the proximal/descending colon appear more prominent than on the preoperative exam although inflammation adjacent to the sigmoid colon and at the anastomosis does appear improved when compared with the patient's prior preoperative exam. Nevertheless, mild colitis is not excluded. Clinical correlation and followup suggested as indicated. No evidence of a discrete or drainable fluid collection, abscess or free intraperitoneal air. No evidence of bowel obstruction. Lab Data Lab results reviewed: Yes I reviewed the patient's lab results. Laboratory Tests Range/Units 09/13/18 09/13/18 09/13/18 21:30 21:30 21:30 WBC (4.4-10.8) k/cumm 6.47 RBC (4.50-6.00) m/cumm 4.69 Hgb (13.5-17.5) g/dL 13.6 Hct (40.0-50.0) % 40.1 MCV (80-95) fL 85.5 MCH (27.0-33.0) pg 29.0 MCHC (32.0-36.0) g/dL 33.9 RDW (11.8-14.1) % 13.2 Plt Count (130-400) x1000/uL 289 MPV (8.0-11.0) fL 10.7 Immature Gran % 0.3 Neutrophils % 52.1 Lymphocytes % 35.4 Monocytes % 8.7 Eosinophils % 2.9 Basophils % 0.6 Absolute Neutrophils (1.2-6.7) k/cumm 3.37 Absolute Lymphocytes (1.2-3.4) k/cumm 2.29 Absolute Monocytes (0.11-0.7) k/cumm 0.56 Absolute Eosinophils (0.0-0.7) k/cumm 0.19 Absolute Basophils (0.0-0.2) k/cumm 0.04 Sodium (136-145) mmol/L 142 Potassium (3.5-5.1) mmol/L 3.6 Chloride (98-107) mmol/L 106 Carbon Dioxide (21.0-32.0) mmol/L 26.7 Anion Gap (3-11) mmol/L 9.3 BUN (7-18) mg/dL 16 Creatinine (0.70-1.30) mg/dL 1.00 Estimated GFR/1.73 m2 (mL/min/1.73m2) >= 60.00 Glucose (70-100) mg/dL 122 H Calcium (8.5-10.1) mg/dL 8.8 Total Bilirubin (0.2-1.0) mg/dL 0.3 AST (15-37) U/L 17 ALT (12-78) U/L 23 Alkaline Phosphatase (46-116) U/L 95 Total Protein (6.4-8.2) g/dL 7.7 Albumin (3.4-5.0) g/dL 3.5 Lipase (73-393) U/L 126 HPI General Mode of arrival: ambulatory . Date/Time Provider Initiated Documentation: 09/13/18 21:02 . Limitations to Documentation: no limitations . Information obtained by: patient . HPI Narrative: Patient is a 42-year-old male who presents to the ER with complaint of hard lumps near his incision line status post his colon resection s/p diverticulitis this month at [facility]. Patient states he has noted these areas of hardening and tenderness near his incision line since his colon resection at [facility] earlier this month. He states that sometimes these lumps appeared to be getting larger and his pain became worse tonight. He denies any fever, nausea, vomiting, diarrhea or urinary symptoms. Patient states he followed up with his surgeons at [facility] last Friday and had his stacy removed and was told by surgery that these areas of induration appeared normal and to be expected post-surgical. Related Data Home Medications Medication Instructions Recorded Confirmed Unknown [No Known Home Meds] 09/13/18 09/13/18 Allergies Allergy/AdvReac Type Severity Reaction Status Date / Time No Known Allergies Allergy Unverified 09/13/18 21:11 General Stated Complaint: Abd Prob IVELISSE: 3 Review of Systems Review of Systems All systems reviewed & are unremarkable except as noted in HPI and below Constitutional Reports as per HPI, Denies chills and Denies fever(s) Eyes Denies blurry vision ENT Denies dizziness, Denies sore throat and Denies throat swelling Cardiovascular Denies chest pain and Denies dyspnea Respiratory Denies cough and Denies dyspnea Gastrointestinal Reports abdominal pain, Denies diarrhea and Denies vomiting Genitourinary Denies hematuria and Denies dysuria Musculoskeletal Denies back pain and Denies numbness Integumentary/Breasts Denies lesions and Denies rash Neurologic Denies dizziness, Denies focal weakness and Denies numbness Allergic/Immunologic Denies throat swelling [facility] Medical History Sleep apnea (Acute) Diverticulitis (Chronic ~06/2018) Adult ADHD (Acute) Sleep apnea (Acute) Kidney stones (Chronic) Surgical History H/O arthroscopic knee surgery (Chronic) History of colon resection (Chronic) Arthroscopy Family History Grandfather No problems noted. Social History household members: other details: 5 highest education level completed: high school graduate current occupational status: employed current occupation: [employer] pets and animals: Yes pets and animals: cat(s) frequency: 5-6 times per week Smoking and Tabacco status: Never alcohol intake: never substance use type: does not use special kristin needs: No Exam Const General: cooperative, healthy appearing and no acute distress HENMT Head: normal to inspection Face and sinus: normal facial exam Eyes General: appearance normal, both eyes and all related structures EOM: EOM intact bilaterally Neck Neck: normal visual inspection and No submandibular swelling Lymphatic: no lymphadenopathy noted Chest Chest: normal inspection of the chest and no tenderness Resp Effort & Inspection: normal respiratory effort and able to speak in complete sentences Auscultation: clear to auscultation bilaterally Cardio Rate: regular rate Rhythm: regular rhythm GI Inspection: scar (Midline abdomen, healing) Palpation: not firm, not rigid and tender (around midline scar) Male General Exam: Yes normal external exam Back/Spine/Pelvis Thoracic/Lumbar Spine: thoracic and lumbar spine normal to inspection Pelvis: no pain with anterior-posterior compression Skin General skin exam: no rashes or lesions noted Neuro General: alert, awake and oriented x3 Cognition: normal cognition Speech: speech normal Motor: muscle tone normal throughout Sensory Exam: no sensory deficits noted Extrem General: normal to inspection, full ROM, normal capillary refill, no calf tenderness bilaterally and no edema Psych Appearance: grossly normal Mental Status: mental status grossly normal Speech and Movement: speech and movement normal Affect: normal affect Course Vital Signs Temperature 98.1 F 09/13/18 21:07 Pulse 71 09/13/18 21:07 Respiratory Rate 16 09/13/18 21:07 Blood Pressure 127/71 09/13/18 21:07 Pulse Oximetry 97 09/13/18 21:07 Temperature 98.1 F 09/13/18 21:07 Temperature Source Temporal Artery Scan 09/13/18 21:07 Pulse 71 09/13/18 21:07 Respiratory Rate 16 09/13/18 21:07 Respiratory Effort Non-Labored 09/13/18 21:12 Blood Pressure 127/71 09/13/18 21:07 Blood Pressure Position Sitting 09/13/18 21:07 Pulse Oximetry 97 09/13/18 21:07 Oxygen Delivery Method Room Air 09/13/18 21:07 Oxygen Flow Rate 0 09/13/18 21:07 Pain Level 8 09/13/18 21:07 Comment 09/13/18 21:07
[2018-09-13 21:41] LABS: Abs Immature Grans 0.02 k/cumm (0.0-0.09); Absolute Basophil Count 0.04 k/cumm (0.0-0.2); Absolute Eosinophil Count 0.19 k/cumm (0.0-0.7); Absolute Lymphocyte Count 2.29 k/cumm (1.2-3.4); Absolute Monocyte Count 0.56 k/cumm (0.11-0.7); Absolute Neutrophil Count 3.37 k/cumm (1.2-6.7); Basophils % 0.6; Eosinophils % 2.9; HCT 40.1 % (40.0-50.0); HGB 13.6 g/dL (13.5-17.5); Immature Grans % 0.3; Lymphocytes % 35.4; Mean Corp. HGB Concentration 33.9 g/dL (32.0-36.0); Mean Corpuscular Volume 85.5 fL (80-95); Mean Platelet Volume 10.7 fL (8.0-11.0); Monocytes % 8.7; Neutrophils % 52.1; Platelet Count 289 x1000/uL (130-400); RBC 4.69 m/cumm (4.50-6.00); RBC Distribution Width 13.2 % (11.8-14.1); White Blood Cell Count 6.47 k/cumm (4.4-10.8)
[2018-09-13 21:51] LABS: ALT 23 U/L (12-78); AST 17 U/L (15-37); Albumin 3.5 g/dL (3.4-5.0); Alkaline Phosphatase 95 U/L (46-116); Anion Gap 9.3 mmol/L (3-11); BUN 16 mg/dL (7-18); Bilirubin, Total 0.3 mg/dL (0.2-1.0); CO2 26.7 mmol/L (21.0-32.0); Calcium 8.8 mg/dL (8.5-10.1); Chloride 106 mmol/L (98-107); Glucose 122 mg/dL (70-100); Potassium 3.6 mmol/L (3.5-5.1); Sodium 142 mmol/L (136-145); Total Protein 7.7 g/dL (6.4-8.2)
[2018-09-13] MEDS: Omnipaque 350 MG/ML 100 ML BTL IJ (22:23)
[2018-09-13] MEDS: Omnipaque 350 MG/ML 50 ML BTL IJ (22:24)
[2018-09-13 22:32] LABS: Lipase 126 U/L (73-393)
--- NOTE | 2018-09-13 22:53 | DI.VRAD_ITS ---
EXAM: CT Abdomen and Pelvis With Contrast EXAM DATE/TIME: 09/13/2018 9:17 PM CLINICAL HISTORY: 42 years old, male; Pain; Abdominal pain; Generalized; Prior surgery; Surgery date: <1 month; Surgery type: Colon resection; Patient HX: Midline abd pain, S/P colon resection 2 weeks. And ureteral stents TECHNIQUE: Axial computed tomography images of the abdomen and pelvis with intravenous contrast. All CT scans at this facility use at least one of these dose optimization techniques: automated exposure control; mA and/or kV adjustment per patient size (includes targeted exams where dose is matched to clinical indication); or iterative reconstruction. Coronal and sagittal reformatted images were created and reviewed. CONTRAST: Contrast Material: 125 ml of omni 350; Contrast Route: iv COMPARISON: CT ABDOMEN PELVIS W 08/15/2018 2:23 PM FINDINGS: Lower thorax: There is mild dependent atelectasis at the lung bases. Pleural effusion is not seen. ABDOMEN: Liver: There is then a infiltration of the liver. There is no discrete mass. Gallbladder and bile ducts: Gallbladder is nondistended. No calcified gallstones. No biliary ductal dilatation. Pancreas: Pancreas unremarkable Spleen: Spleen is unremarkable Adrenals: Adrenals are unremarkable Kidneys and ureters: No radiopaque urinary tract calculi. No evidence of hydronephrosis. Stomach and bowel: When compared with the patient's prior examination of August there has been interval resection of the sigmoid colon. Surgical sutures are seen at the rectosigmoid junction. There is persistent inflammation and stranding in the pericolonic fat particularly involving the distal descending colon and the sigmoid colon. And appears improved at the level of the sigmoid colon where the surgical anastomosis is but extends more proximally into the descending colon than on the patient's prior exam. There is however no evidence of a discrete or drainable fluid collection, abscess or free intraperitoneal air. There is no evidence of bowel obstruction. There is no discrete mass identified. Appendix: No evidence of appendicitis. PELVIS: Bladder: Bladder is unremarkable Reproductive: Prostate gland, seminal vesicles are unremarkable ABDOMEN and PELVIS: Intraperitoneal space: No significant ascites focal collections or free intraperitoneal air Bones/joints: There is no acute or destructive bony abnormality identified. Soft tissues: There is a midline ventral incision and mild skin thickening and edema in the subcutaneous fat. There is no evidence of a discrete or drainable subcutaneous collection or abscess. Vasculature: Aorta is nonaneurysmal. Lymph nodes: No significant adenopathy. IMPRESSION: Interval colonic resection. Persistent inflammation/stranding in the pericolonic fat particularly adjacent to the distal descending and sigmoid colon. Superior extension adjacent to the proximal/descending colon appear more prominent than on the preoperative exam although inflammation adjacent to the sigmoid colon and at the anastomosis does appear improved when compared with the patient's prior preoperative exam. Nevertheless, mild colitis is not excluded. Clinical correlation and followup suggested as indicated. No evidence of a discrete or drainable fluid collection, abscess or free intraperitoneal air. No evidence of bowel obstruction. Dictated and Authenticated by: Vicki Loza MD. Ordering:EDEL Campbell MD
[2018-09-13 23:30] VITALS: BP 131/77; PULSE 77; RESP 16; O2SAT 98
[2018-09-14] MEDS: Normal Saline 1,000 ML 1000 ML IV (00:03)
== END 2018-09-14 01:35 | disposition home or self-care (01) ==
PROVIDERS: Emergency Provider Physician Assistant; PCP Family Medicine
DX: R10.33 Periumbilical pain (principal); G89.18 Other acute postprocedural pain; Y83.2 Surgical operation with anastomosis, bypass or graft as the cause of abnormal reaction of the patient, or of later complication, without mention of misadventure at the time of the procedure
CPT/HCPCS: 36415; 80053; 83690; 96360; 99285; 74177; 85025; 99284; J3490; Q9967

== ENCOUNTER 2019-12-20 22:30 | Outpatient (REF) | payer MEDICAID, SELFPAY ==
[2019-12-22 16:50] LABS: Chlamydia Result Negative (Negative); GC Result Negative (Negative)
== END 2019-12-20 22:50 ==
LOC: LBN 22:30
PROVIDERS: PCP Family Medicine; Visit Provider Nurse Practitioner Family
DX: Z11.3 Encounter for screening for infections with a predominantly sexual mode of transmission (principal)
CPT/HCPCS: 87491; 87591

== ENCOUNTER 2019-12-21 03:41 | Outpatient (CLI) | payer MEDICAID, SELFPAY ==
[2019-12-21 09:38] LABS: Calculated LDL 141 mg/dL (<100); Cholesterol 197 mg/dL (<200); HDL Cholesterol 33 mg/dL (40-60); Triglyceride 117 mg/dL (<150)
[2019-12-22 10:40] LABS: Hepatitis C Ab w Rflx HCV PCR Negative (Negative)
[2019-12-22 10:49] LABS: HIV-1/2 Ag & Ab Screen Negative (Negative)
[2019-12-22 11:10] LABS: Syphilis Serology (RPR) Negative (Negative)
== END 2019-12-21 04:01 ==
PROVIDERS: Nurse Practitioner Family; PCP Family Medicine; Visit Provider Family Medicine
DX: Z13.220 Encounter for screening for lipoid disorders (principal); Z11.59 Encounter for screening for other viral diseases; Z11.4 Encounter for screening for human immunodeficiency virus [HIV]
CPT/HCPCS: 36415; 80061; 86803; 87389; 86592

== ENCOUNTER 2020-02-16 22:40 | Outpatient (REF) | payer MEDICAID, SELFPAY ==
[2020-02-18 10:43] LABS: Lyme Ab w Rflx to Lyme Confirm Negative (Negative)
[2020-02-18 22:42] LABS: Anaplasma phagocytophilum Negative (Negative); B. miyamotoi PCR Negative (Negative); Babesia divergens/MO-1 Negative (Negative); Babesia duncani Negative (Negative); Babesia microti Negative (Negative); Ehrlichia chaffeensis Negative (Negative); Ehrlichia ewingii/canis Negative (Negative); Ehrlichia muris eauclairensis Negative (Negative)
== END 2020-02-16 23:00 ==
LOC: LBN 22:40
PROVIDERS: PCP Family Medicine; Visit Provider Nurse Practitioner Family
DX: S70.362A Insect bite (nonvenomous), left thigh, initial encounter (principal); W57.XXXA Bitten or stung by nonvenomous insect and other nonvenomous arthropods, initial encounter
CPT/HCPCS: 87798; 86618

== ENCOUNTER 2020-02-20 22:34 | Emergency (ER) | payer MEDICAID, SELFPAY ==
[2020-02-20 22:43] VITALS: BP 115/69; PULSE 77; RESP 16; TEMP 36.9; O2SAT 95
--- NOTE | 2020-02-20 22:45 | DI.RAD_ITS ---
EXAM: XR KNEE RT 3V AP,LAT,MORGAN CLINICAL HISTORY: pain s/p trauma. TECHNIQUE: 2D digital imaging was performed. COMPARISON: CR CHEST 2 VIEWS PA,LAT from 08/28/2016 FINDINGS: BONES: No acute fracture is present. No bony destructive lesion is seen. Densities in and around the knee appears stable. JOINTS: The knee is normally aligned. No joint effusion is seen. SOFT TISSUE: Normal. IMPRESSION: No acute fracture or dislocation. DATA REPOSITORY: RADIATION DOSE DELIVERED:
--- NOTE | 2020-02-20 22:45 | DI.RAD_ITS ---
EXAM: XR HIP RT COMPLETE AP PELVIS CLINICAL HISTORY: pain s/p trauma. TECHNIQUE: 2D digital imaging was performed. COMPARISON: CT CHEST ABD PELVIS WITH CONTRAST from 10/21/2017 FINDINGS: BONES: No acute fracture is present. No bony destructive lesion is seen. Old right pubic bone fractur es. JOINTS: No dislocation present. SOFT TISSUE: Normal. IMPRESSION: No acute fracture or dislocation. DATA REPOSITORY: RADIATION DOSE DELIVERED:
--- NOTE | 2020-02-20 22:45 | DI.RAD_ITS ---
EXAM: XR ANKLE RT COMPLETE CLINICAL HISTORY: pain s/p trauma. TECHNIQUE: 2D digital imaging was performed. COMPARISON: No exams were available for comparison FINDINGS: BONES: There is a tiny density interposed between the distal fibula and talus which may represent a s mall avulsed fracture. JOINTS: There is mild widening of the medial ankle mortise. SOFT TISSUE: There is diffuse soft tissue swelling. IMPRESSION: Possible small avulsion fracture fragment interposed between the distal fibula and the talus. Site o f origin is unknown. Please correlate with the patient's clinical history and physical exam. If fur ther imaging is warranted a CT scan may be considered. DATA REPOSITORY: RADIATION DOSE DELIVERED:
--- NOTE | 2020-02-20 22:45 | DI.RAD_ITS ---
EXAM: XR FEMUR RT CLINICAL HISTORY: pain s/p trauma. TECHNIQUE: 2D digital imaging was performed. COMPARISON: No exams were available for comparison FINDINGS: BONES: No acute fracture is present. Old right pubic bone fractures. No bony destructive lesion is seen. Visualized portion of knee and hip joints are unremarkable. SOFT TISSUE: Normal. IMPRESSION: Unremarkable radiographs of the right femur. DATA REPOSITORY: RADIATION DOSE DELIVERED:
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
[2020-02-20] MEDS: Acetaminophen 500 MG TAB 1000 MG PO (23:53)
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
[2020-02-21 00:50] VITALS: BP 126/74; PULSE 71; RESP 16; O2SAT 95
--- NOTE | 2020-02-21 00:50 | NUR.NOTE ---
Measured for crutches, instructed on use with return demonstration. Walking boot with verbal understanding. aware to f/u with ortho. ambulated to exit with steady gait.,
== END 2020-02-21 00:50 | disposition home or self-care (01) ==
PROVIDERS: Emergency Provider Emergency Medicine; PCP Family Medicine
DX: S82.61XA Displaced fracture of lateral malleolus of right fibula, initial encounter for closed fracture (principal); M79.604 Pain in right leg; V03.10XA Pedestrian on foot injured in collision with car, pick-up truck or van in traffic accident, initial encounter
CPT/HCPCS: 27786; 73552; 73562; 99283; 73502; 73610; 99281; E0114; L4361

== ENCOUNTER 2020-08-09 02:28 | Outpatient (CLI) | payer MEDICAID, SELFPAY ==
[2020-08-10 13:17] LABS: COVID-19 RT-PCR UVMMC Result Presumptive Positive (Negative)
== END 2020-08-09 02:48 ==
PROVIDERS: PCP Family Medicine; Visit Provider Family Medicine
DX: Z20.822 Contact with and (suspected) exposure to COVID-19 (principal)
CPT/HCPCS: U0003

== ENCOUNTER 2020-08-30 17:43 | Emergency (ER) | payer MEDICAID, SELFPAY ==
[2020-08-30 17:47] VITALS: BP 159/103; PULSE 96; RESP 16; TEMP 36.7; O2SAT 95
--- NOTE | 2020-08-30 18:02 | ED.GENADUL_ITS ---
Discharge Plan Disposition Patient Disposition: HOME Condition: Stable Discharge Details Clinical Impression: Left shoulder strain, Abdominal wall abrasion Primary Care Provider: Gavino Pinedo ED Provider: Shannan Black Home Meds and New Rx's Prescriptions: Continued albuterol sulfate [Ventolin HFA] 90 mcg/actuation HFA aerosol inhaler 2 puff inhalation QID PRN (Reason: shortness of breath or wheezing) Qty: 6.7 RF: 1 tadalafil 5 mg tablet 5 - 20 mg PO DAILY PRN (Reason: sexual activity) Qty: 30 RF: 5 meloxicam 15 mg tablet 15 mg PO DAILY PRN (Reason: pain) Qty: 90 RF: 1 dextroamphetamine-amphetamine 30 mg capsule,extended release 24hr 30 mg PO QAM MDD 1 cap Qty: 28 RF: 0 Discharge Instructions Instructions: Shoulder Sprain (ED), Abrasion (ED) Additional Instructions: Rest, ice, and elevate the affected area as much as possible. Take your meloxicam that you have at home as needed and directed for pain. Follow-up with your primary care doctor in 1 week and for referral to orthopedics if your symptoms do not improve or worsen. Return to the emergency department with any worsening or new concerning symptoms. Referrals: Tom Guillermo MD [ [facility] STAFF PHYSICIAN] - Discharge Data Discharge Date/Time-TO BE ENTERED AT DEPARTURE: 08/30/20 19:23 Discharge Physician: Shannan Black Medical Decision Making 44-year-old male presents with left shoulder injury after slip and fall onto his left arm after helping someone out of the kitchen today. Denies head injury. He also sustained abrasions to his left lateral abdomen but he has no abdominal pain and his abdomen is soft, nontender. Lungs clear. No evidence of head trauma. Left anterior shoulder tender to palpation with pain with active and passive range of motion. He is neurovascularly intact. There is no deformity. We will obtain a left shoulder x-ray and give a dose of ibuprofen. Do not see an indication for chest or abdominal imaging at this time as abrasions are superficial and he has no pain with deep palpation, no vomiting and appears in no acute distress. Shoulder x-ray reviewed and negative. Patient advised on importance of RICE, alternating Tylenol and Motrin. Patient requested a sling for home. Advised to follow up with the primary care doctor for re-evaluation. He was given orthopedic follow-up information if needed if symptoms do not improve or worsen for consideration of possible rotator cuff injury. Usual and customary return precautions given prior to discharge. Medical Records Medical records reviewed: Yes I reviewed the patient's medical records. Imaging Data Radiologic Study: Radiologist's impression: XR Left Shoulder Exam date and time: 08/30/2020 6:26 PM Age: 44 years old Clinical indication: Injury or trauma; Fall; Blunt trauma (contusions or hematomas); Shoulder; Left TECHNIQUE: Imaging protocol: XR Left shoulder. Views: 2 or more views. COMPARISON: No relevant prior studies available. FINDINGS: Bones/joints: Acromioclavicular and glenohumeral joints are intact. No fracture or dislocation. Normal osseous mineralization. Subacromial space and cortical clavicular distance are maintained. Lungs: Imaged left lung is clear. Soft tissues: Normal. IMPRESSION: No acute abnormality. HPI General Mode of arrival: ambulatory . Date/Time Provider Initiated Documentation: 08/30/20 17:49 . Limitations to Documentation: no limitations . Information obtained by: patient . HPI Narrative: Patient is a 44-year-old male who presents with left shoulder injury after slip and fall onto his left briseyda ulder after helping to pull someone up out of a ditch. Patient states he sustained some abrasions to his left abdomen in the fall but denies any abdominal pain. He also admits to tingling down his left arm but denies any pain in his elbow, wrist or hand. He denies head injury, LOC, vomiting, neck pain, chest pain, shortness of breath, back pain, other extremity injury or pain. He states he has not taken any medication for pain. Patient drove himself to the ED. Related Data Home Medications Medication Instructions Recorded Confirmed tadalafil 5 mg tablet 5 - 20 mg PO DAILY PRN #30 tab 04/04/20 08/30/20 meloxicam 15 mg tablet 15 mg PO DAILY PRN #90 tab 05/17/20 08/30/20 dextroamphetamine-amphetamine ER 30 mg PO QAM #28 cap MDD 1 cap 07/24/20 08/30/20 30 mg 24hr capsule,extend release albuterol sulfate 90 mcg/actuation 2 puff INHALATION QID PRN #6.7 g 08/04/20 08/30/20 aerosol inhaler Previous Rx's Medication Instructions Recorded tadalafil 5 mg tablet 5 - 20 mg PO DAILY PRN #30 tab 04/04/20 meloxicam 15 mg tablet 15 mg PO DAILY PRN #90 tab 05/17/20 dextroamphetamine-amphetamine ER 30 mg PO QAM #28 cap MDD 1 cap 07/24/20 30 mg 24hr capsule,extend release albuterol sulfate 90 mcg/actuation 2 puff INHALATION QID PRN #6.7 g 08/04/20 aerosol inhaler Allergies Allergy/AdvReac Type Severity Reaction Status Date / Time No Known Allergies Allergy Verified 08/30/20 17:54 General Stated Complaint: Orthopedic IVELISSE: 3 Review of Systems All systems reviewed & are unremarkable except as noted in HPI and below Constitutional Constitutional: Reports as per HPI, Denies chills and Denies fever(s) Eyes Eyes: Denies blurry vision ENT Ears, Nose, Mouth, and Throat: Denies dizziness, Denies sore throat and Denies throat swelling Cardiovascular Cardiovascular: Denies chest pain and Denies dyspnea Respiratory Respiratory: Denies cough and Denies dyspnea Gastrointestinal Gastrointestinal: Denies abdominal pain, Denies diarrhea and Denies vomiting Genitourinary Genitourinary: Denies hematuria and Denies dysuria Musculoskeletal Musculoskeletal: Denies back pain, Denies numbness and Reports other (left shoulder) Integumentary/Breasts Skin/Breast: Reports lesions and Denies rash Neurologic Neurologic: Denies dizziness, Denies localized weakness and Denies numbness Allergic/Immunologic Allergic/Immunologic: Denies throat swelling REPLACED BY [facility] Medical History (Updated 08/30/20 @ 19:09 by Shannan Black DO) Adult ADHD Diabetes mellitus Diverticulitis (~06/2018) Kidney stones Sleep apnea Sleep apnea Surgical History Arthroscopy LEFT H/O arthroscopic knee surgery History of colon resection S/P colectomy (~08/2018) 09/01 [facility] [place] for diverticular disease Family History Maternal Grandfather No problems noted. Mother No problems noted. Father No problems noted. Sister No problems noted. Son No problems noted. Son No problems noted. Daughter No problems noted. Daughter No problems noted. 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 Pets and animals: Yes Pets and animals: cat(s) Sexually active: Yes Do you think of yourself as: straight/heterosexual Current gender identity: decline to answer What is your relationship status?: How often do you talk on the phone with friends or family?: three or more times per week How often do you get together with friends or relatives?: once per week How often do you attend sabianism or holiness services?: decline to answer Do you belong to any clubs or organized social groups?: no Panel score (0-1 are the most socially isolated patients): 1 What type of physical activity do you participate in: weight lifting and de santos to answer Duration: 15-30 minutes/day Frequency: 5-6 times per week Esmer/Denominational: No preference Special esmer needs: No Seatbelt use: always Helmet use: Yes Helmet use: sometimes Drive intox or ride w/intox 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: No Do you feel safe at home: Yes Do you feel safe in your relationship?: Yes Exam Const General: cooperative, healthy appearing and no acute distress HENMT Head: normal to inspection Face and sinus: normal facial exam Eyes General: appearance normal, both eyes and all related structures EOM: EOM intact bilaterally Neck Neck: normal visual inspection and No submandibular swelling Lymphatic: no lymphadenopathy noted Chest Chest: normal inspection of the chest and no tenderness Resp Effort & Inspection: normal respiratory effort and able to speak in complete sentences Auscultation: clear to auscultation bilaterally Cardio Rate: regular rate Rhythm: regular rhythm GI Inspection: normal to inspection and obesity Palpation: soft, not firm, not rigid and nontender Auscultation: hypoactive bowel sounds Abdomen image: 1. Superficial abrasions Skin General skin exam: no rashes or lesions noted Neuro General: patient alert, patient awake and patient oriented x3 Cognition: normal cognition Speech: speech normal Motor: muscle tone normal throughout Sensory Exam: no sensory deficits noted Extrem General: capillary refill normal Other: Tenderness to palpation left anterior and posterior shoulder. Pain in left shoulder with active and passive range of motion. No tenderness to palpation to left elbow, hand or wrist. Left radial and ulnar pulses intact. No deformity noted to left shoulder. Psych Appearance: grossly normal Mental Status: mental status grossly normal Speech and Movement: speech and movement normal Affect: normal affect Course Vital Signs Vital signs: Vital Signs Temperature 98.1 F 08/30/20 17:47 Pulse 96 H 08/30/20 17:47 Respiratory Rate 16 08/30/20 17:47 Blood Pressure 159/103 H 08/30/20 17:47 Pulse Oximetry 95 08/30/20 17:47 Temperature 98.1 F 08/30/20 17:47 Temperature Source Skin 08/30/20 17:47 Pulse 96 H 08/30/20 17:47 Respiratory Rate 16 08/30/20 17:47 Respiratory Effort 08/30/20 17:54 Blood Pressure 159/103 H 08/30/20 17:47 Blood Pressure Position Sitting 08/30/20 17:47 Pulse Oximetry 95 08/30/20 17:47 Oxygen Delivery Method Room Air 08/30/20 17:47 Oxygen Flow Rate 0 08/30/20 17:47 Pain Level 10 08/30/20 17:56
[2020-08-30] MEDS: Ibuprofen 600 MG TAB PO (18:40)
--- NOTE | 2020-08-30 18:57 | DI.RAD_ITS ---
EXAM: XR SHOULDER LT COMPLETE 2+V CLINICAL HISTORY: s/p fall, r/o acute fracture. TECHNIQUE: 2D digital imaging was performed. COMPARISON: No exams were available for comparison FINDINGS: There is no evidence of acute fracture or dislocation no abnormal soft tissue calcifications. No oss eous lesions. There is a healed midshaft fracture of the ipsilateral left clavicle. IMPRESSION: As above. No acute fracture evident. DATA REPOSITORY: RADIATION DOSE DELIVERED:
--- NOTE | 2020-08-30 19:05 | DI.VRAD_ITS ---
PROCEDURE INFORMATION: Exam: XR Left Shoulder Exam date and time: 08/30/2020 6:26 PM Age: 44 years old Clinical indication: Injury or trauma; Fall; Blunt trauma (contusions or hematomas); Shoulder; Left TECHNIQUE: Imaging protocol: XR Left shoulder. Views: 2 or more views. COMPARISON: No relevant prior studies available. FINDINGS: Bones/joints: Acromioclavicular and glenohumeral joints are intact. No fracture or dislocation. Normal osseous mineralization. Subacromial space and cortical clavicular distance are maintained. Lungs: Imaged left lung is clear. Soft tissues: Normal. IMPRESSION: No acute abnormality. Dictated and Authenticated by: Chuck Rain MD. Ordering:EDEL Campbell MD
== END 2020-08-30 19:23 | disposition home or self-care (01) ==
PROVIDERS: Emergency Provider Physician Assistant; PCP Family Medicine
DX: S46.912A Strain of unspecified muscle, fascia and tendon at shoulder and upper arm level, left arm, initial encounter (principal); S30.811A Abrasion of abdominal wall, initial encounter; W01.0XXA Fall on same level from slipping, tripping and stumbling without subsequent striking against object, initial encounter; E11.9 Type 2 diabetes mellitus without complications
CPT/HCPCS: 99284; 73030; 99283

== ENCOUNTER 2021-03-29 21:28 | Emergency (ER) | payer MEDICAID, SELFPAY ==
[2021-03-29 21:37] VITALS: BP 129/83; PULSE 81; RESP 18; TEMP 36.3; O2SAT 99
--- NOTE | 2021-03-29 21:59 | W.ED.GENAD ---
Discharge Plan Disposition Patient Disposition: HOME Condition: Stable Discharge Details Clinical Impression: Pain, dental Primary Care Provider: Gavino Pinedo ED Provider: Ameena Eid Home Meds and New Rx's Prescriptions: New amoxicillin-pot clavulanate [Augmentin] 875-125 mg tablet 1 tab PO BID 10 Days Qty: 20 RF: 0 ibuprofen 800 mg tablet 800 mg PO Q8H PRN (Reason: pain) Qty: 14 RF: 0 No Action albuterol sulfate [Ventolin HFA] 90 mcg/actuation HFA aerosol inhaler 2 puff inhalation QID PRN (Reason: shortness of breath or wheezing) Qty: 6.7 RF: 3 meloxicam 15 mg tablet 15 mg PO DAILY PRN (Reason: pain) Qty: 90 RF: 1 dextroamphetamine-amphetamine 30 mg capsule,extended release 24hr 30 mg PO QAM MDD 1 cap Qty: 28 RF: 0 Discharge Instructions Instructions: Toothache (ED) Additional Instructions: Take antibiotic twice daily as directed for the next 7 to 10 days. Please follow-up with a dentist. Return to the ER for any drainage, worsening facial pain, fever or confusion or any concerns. You were given the first couple of doses of antibiotic here in the department today. The prescription was sent to the pharmacy we have on file for you. Use the Hurricaine gel up to 3 times daily as needed for pain. Please take Tylenol or Ibuprofen with food every 4-6 hours as needed for pain and swelling. Follow up with primary care provider in 3-5 days. Return to ED sooner if any worsening or concerns. Increase oral fluids. Referrals: Gavino Pinedo. [Primary Care Provider] - Medical Decision Making 45-year-old male presents to the ER with chief complaint of gum swelling and tenderness which he noticed approximately 2 to 3 days ago status post broken tooth to #8 approximately 1 week ago. He denies any drainage no fever no chills. He notes swelling and tenderness extending up into his nose. On exam he does have some erythema and swelling over the gingiva. He has a past medical history of asthma, depression, diverticulitis, kidney stones. Due to concern for possible Covid positive and contact will not I&D the abscess at this time. Patient given benzocaine gel, prescription for Augmentin and ibuprofen was sent to the pharmacy on file. He was given the first dose here in the department. Instructed to follow-up with a dentist verbalized understanding. Instructed on strict return instructions including fever, drainage, facial pain or any concerns. This text was generated using [employer] system, please disregard any oddities of phrase or misspellings. HPI General Mode of arrival: ambulatory. Date/Time Provider Initiated Documentation: 03/29/21 21:48. Limitations to Documentation: no limitations. Information obtained by: patient and RN notes reviewed. HPI Narrative: 45-year-old male presents to the ER with chief complaint of gum swelling and tenderness which he noticed approximately 2 to 3 days ago status post broken tooth to #8 approximately 1 week ago. He denies any drainage no fever no chills. He notes swelling and tenderness extending up into his nose. On exam he does have some erythema and swelling over the gingiva. He has a past medical history of asthma, depression, diverticulitis, kidney stones. Related Data Home Medications Medication Instructions Recorded Confirmed albuterol sulfate 90 mcg/actuation 2 puff INHALATION QID PRN #6.7 g 10/03/20 03/29/21 aerosol inhaler meloxicam 15 mg tablet 15 mg PO DAILY PRN #90 tab 01/05/21 03/29/21 dextroamphetamine-amphetamine ER 30 mg PO QAM #28 cap MDD 1 cap 03/21/21 03/29/21 30 mg 24hr capsule,extend release amoxicillin-pot clavulanate 1 tab PO BID 10 Days #20 tab 03/29/21 [Augmentin] ibuprofen 800 mg PO Q8H PRN #14 tab 03/29/21 Previous Rx's Medication Instructions Recorded albuterol sulfate 90 mcg/actuation 2 puff INHALATION QID PRN #6.7 g 10/03/20 aerosol inhaler meloxicam 15 mg tablet 15 mg PO DAILY PRN #90 tab 01/05/21 dextroamphetamine-amphetamine ER 30 mg PO QAM #28 cap MDD 1 cap 03/21/21 30 mg 24hr capsule,extend release amoxicillin-pot clavulanate 1 tab PO BID 10 Days #20 tab 03/29/21 [Augmentin] ibuprofen 800 mg PO Q8H PRN #14 tab 03/29/21 Allergies Allergy/AdvReac Type Severity Reaction Status Date / Time No Known Allergies Allergy Verified 03/29/21 21:43 General Stated Complaint: DentalOral IVELISSE: 4 Review of Systems All systems reviewed & are unremarkable except as noted in HPI and below ENT Ears, Nose, Mouth, and Throat: Reports dental pain and Reports mouth pain [facility] Medical History Adult ADHD Diabetes mellitus Diverticulitis (~06/2018) Kidney stones Sleep apnea Sleep apnea Surgical History Arthroscopy LEFT H/O arthroscopic knee surgery History of colon resection S/P colectomy (~08/2018) 09/01 [facility] [place] Family History Maternal Grandfather No problems noted. Mother No problems noted. Father No problems noted. Sister No problems noted. Son No problems noted. Son No problems noted. Daughter No problems noted. Daughter No problems noted. 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 Pets and animals: Yes Pets and animals: cat(s) Sexually active: Yes Do you think of yourself as: straight/heterosexual Current gender identity: decline to answer What is your relationship status?: How often do you talk on the phone with friends or family?: three or more times per week How often do you get together with friends or relatives?: once per week How often do you attend zoroastrian or scientology services?: decline to answer Do you belong to any clubs or organized social groups?: no Panel score (0-1 are the most socially isolated patients): 1 What type of physical activity do you participate in: weight lifting and decline to answer Duration: 15-30 minutes/day Frequency: 5-6 times per week Esmer/Congregational: No preference Special esmer needs: No Seatbelt use: always Helmet use: Yes Helmet use: sometimes Drive intox or ride w/intox dolly driver: No Do you feel safe at home: Yes Do you feel safe in your relationship?: Yes Exam HENMT Teeth and gingiva: abnormal tooth or associated gingiva upper left second bicuspid tender and with associated gingival edema and poor dentition Teeth image: 1. Broken Throat image: 1. Swelling tenderness Course Vital Signs Vital signs: Vital Signs Temperature 36.3 C L 03/29/21 21:37 Pulse 81 03/29/21 21:37 Respiratory Rate 18 03/29/21 21:37 Blood Pressure 129/83 03/29/21 21:37 Pulse Oximetry 99 03/29/21 21:37 Temperature 36.3 C L 03/29/21 21:37 Temperature Source Temporal Artery Scan 03/29/21 21:37 Pulse 81 03/29/21 21:37 Respiratory Rate 18 03/29/21 21:37 Respiratory Effort Non-Labored 03/29/21 21:44 Blood Pressure 129/83 03/29/21 21:37 Blood Pressure Position Sitting 03/29/21 21:37 Pulse Oximetry 99 03/29/21 21:37 Oxygen Delivery Method Room Air 03/29/21 21:37 Oxygen Flow Rate 0 03/29/21 21:37 Pain Level 9 03/29/21 21:37
[2021-03-29] MEDS: Amoxicillin 875/Clav. 125 TAB PO (22:08)
[2021-03-29] MEDS: Amox. 875/Clav. 125, 2 TABS/BTL 1 TAB PO (22:08)
[2021-03-29] MEDS: Benzocaine 20% Gel 30 GM JAR MM (22:09)
== END 2021-03-29 22:15 | disposition home or self-care (01) ==
PROVIDERS: Emergency Provider Registered Nurse Emergency; PCP Family Medicine
DX: K04.7 Periapical abscess without sinus (principal); Z20.822 Contact with and (suspected) exposure to COVID-19
CPT/HCPCS: 99283

== ENCOUNTER 2021-04-08 02:03 | Emergency (ER) | payer MEDICAID, SELFPAY ==
[2021-04-08 02:22] VITALS: BP 129/87; PULSE 86; RESP 20; TEMP 36.9; O2SAT 96
--- NOTE | 2021-04-08 02:33 | ED.GENADUL_ITS ---
Discharge Plan Disposition Patient Disposition: HOME Condition: Good Discharge Details Clinical Impression: Dyspnea, Fatigue, Diarrhea, Forearm strain Primary Care Provider: Gavino Pinedo ED Provider: Fredy Glass Home Meds and New Rx's Prescriptions: Continued albuterol sulfate [Ventolin HFA] 90 mcg/actuation HFA aerosol inhaler 2 puff inhalation QID PRN (Reason: shortness of breath or wheezing) Qty: 6.7 RF: 3 meloxicam 15 mg tablet 15 mg PO DAILY PRN (Reason: pain) Qty: 90 RF: 1 dextroamphetamine-amphetamine 30 mg capsule,extended release 24hr 30 mg PO QAM MDD 1 cap Qty: 28 RF: 0 ibuprofen 800 mg tablet 800 mg PO Q8H PRN (Reason: pain) Qty: 14 RF: 0 Discharge Instructions Additional Instructions: Would assume likely COVID given symptoms and family member ill with same. Quarantine at home until testing returns. Rest, fluids, Tylenol/Motrin for pain/fever. Would ice the forearm on/off for next few days. Return to ED for chest pain, worsening shortness of breath, vomiting, mental status changes, other concerns. Follow up with PCP next week if not improving and COVID negative. Stand Alone Forms: PENDING COVID-19 TESTING Medical Decision Making Patient looks well and has normal vital signs as well as normal room air pulse oximetry. Lungs are clear to auscultation. Diarrhea may be related to antibiotic but also may be related to viral illness given his other symptoms. Given family member ill with Covid despite patient testing positive for Covid himself in August still must consider possibility. Covid swab obtained and sent. Injury of forearm muscular in nature with no mechanism for bony injury and normal range of motion of the forearm. No imaging of the arm or chest necessary. No blood work necessary. Patient to go home and quarantine until Covid test has returned. Ice on and off to his forearm use Tylenol or Motrin for pain. HPI General Mode of arrival: ambulatory . Date/Time Provider Initiated Documentation: 04/08/21 02:16 . Limitations to Documentation: no limitations . Information obtained by: patient, RN notes reviewed and old records reviewed . HPI Narrative: Patient presents to the ED with various complaints. Patient is on amoxicillin for dental infection and has had problems with antibiotics in the past. He is having diarrhea. However, he is also complaining of increased fatigue, some shortness of breath with exertion, runny nose, malaise over the last couple of days. His son has tested positive for Covid. Patient is not vaccinated. He did have positive Covid test in August of this year but no symptoms. He denies any fever or cough at this time. Has some nausea but no vomiting or abdominal pain. There is no blood in the diarrhea. Patient also reporting injury to left arm this evening when trying to lift heavy objects. [place] a pop in his forearm and has had pain there since. Related Data Home Medications Medication Instructions Recorded Confirmed albuterol sulfate 90 mcg/actuation 2 puff INHALATION QID PRN #6.7 g 10/03/20 04/08/21 aerosol inhaler meloxicam 15 mg tablet 15 mg PO DAILY PRN #90 tab 01/05/21 04/08/21 dextroamphetamine-amphetamine ER 30 mg PO QAM #28 cap MDD 1 cap 03/21/21 04/08/21 30 mg 24hr capsule,extend release ibuprofen 800 mg PO Q8H PRN #14 tab 03/29/21 04/08/21 Previous Rx's Medication Instructions Recorded albuterol sulfate 90 mcg/actuation 2 puff INHALATION QID PRN #6.7 g 10/03/20 aerosol inhaler meloxicam 15 mg tablet 15 mg PO DAILY PRN #90 tab 01/05/21 dextroamphetamine-amphetamine ER 30 mg PO QAM #28 cap MDD 1 cap 03/21/21 30 mg 24hr capsule,extend release ibuprofen 800 mg PO Q8H PRN #14 tab 03/29/21 Allergies Allergy/AdvReac Type Severity Reaction Status Date / Time No Known Allergies Allergy Verified 04/08/21 02:27 General Stated Complaint: GenMedical IVELISSE: 3 Review of Systems Narrative: As documented in HPI otherwise negative as below. Const: no fever, chills, weakness Resp: no cough, pleuritic pain CV: no CP, diaphoresis, edema, syncope GI: no abdominal pain, vomiting Neuro: no headache, numbness, focal weakness, confusion PFSH Medical History Adult ADHD Diabetes mellitus Diverticulitis (~06/2018) Kidney stones Sleep apnea Sleep apnea Surgical History Arthroscopy LEFT H/O arthroscopic knee surgery History of colon resection S/P colectomy (~08/2018) 09/01 [facility] for diverticular disease Family History Maternal Grandfather No problems noted. Mother No problems noted. Father No problems noted. Sister No problems noted. Son No problems noted. Son No problems noted. Daughter No problems noted. Daughter No problems noted. 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 Pets and animals: Yes Pets and animals: cat(s) Sexually active: Yes Do you think of yourself as: straight/heterosexual Current gender identity: decline to answer What is your relationship status?: How often do you talk on the phone with friends or family?: three or more times per week How often do you get together with friends or relatives?: once per week How often do you attend rastafarian or hoahaoism services?: decline to answer Do you belong to any clubs or organized social groups?: no Panel score (0-1 are the most socially isolated patients): 1 What type of physical activity do you participate in: weight lifting and decline to answer Duration: 15-30 minutes/day Frequency: 5-6 times per week Esmer/Caodaism: No preference Special esmer needs: No Seatbelt use: always Helmet use: Yes Helmet use: sometimes Drive intox 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 HEENT: NC/AT. Normal facial exam. Eyes: Normal conjunctiva and sclera. Neck: Supple. Trachea midline. Lungs: Normal respiratory effort. Lungs are clear. Cor: RRR without murmur/gallop. Good radial pulses. GI: Soft. NT/ND. Neuro: A+O x 3. Normal speech, mentation, gait. Cranial nerves II - XII grossly intact. No gross motor or sensory deficit. Ext: No C/C/E. Tenderness proximal brachial radialis region of the left forearm. Able to flex and extend as well as supinate and pronate at the elbow. Neurovascularly intact distally. Skin: Warm and dry without rash. Course Vital Signs Vital signs: Vital Signs Temperature 98.4 F 04/08/21 02:22 Pulse 86 04/08/21 02:22 Respiratory Rate 20 04/08/21 02:22 Blood Pressure 129/87 04/08/21 02:22 Pulse Oximetry 96 04/08/21 02:22 Temperature 98.4 F 04/08/21 02:22 Temperature Source Tympanic 04/08/21 02:22 Pulse 86 04/08/21 02:22 Respiratory Rate 20 04/08/21 02:22 Blood Pressure 129/87 04/08/21 02:22 Blood Pressure Position Sitting 04/08/21 02:22 Pulse Oximetry 96 04/08/21 02:22 Oxygen Delivery Method Room Air 04/08/21 02:22 Oxygen Flow Rate 0 04/08/21 02:22 Pain Level 10 04/08/21 02:22
[2021-04-09 11:29] LABS: COVID-19 RT-PCR UVMMC Result Negative (Negative)
--- NOTE | 2021-04-09 20:24 | NUR.NOTE ---
patient notified of negative covid test results.
== END 2021-04-08 03:28 | disposition home or self-care (01) ==
PROVIDERS: Emergency Provider Emergency Medicine; PCP Family Medicine
DX: R06.00 Dyspnea, unspecified (principal); Z20.822 Contact with and (suspected) exposure to COVID-19; R19.7 Diarrhea, unspecified; R53.83 Other fatigue; S56.812A Strain of other muscles, fascia and tendons at forearm level, left arm, initial encounter; X50.0XXA Overexertion from strenuous movement or load, initial encounter
CPT/HCPCS: 99281; U0003; 99283

== ENCOUNTER 2021-06-12 09:58 | Outpatient (CLI) | payer MEDICAID, SELFPAY ==
[2021-06-12 13:04] LABS: Calculated LDL 147 mg/dL (<100); Cholesterol 216 mg/dL (<200); HDL Cholesterol 38 mg/dL (40-60); Triglyceride 158 mg/dL (<150)
[2021-06-15 15:52] LABS: Testosterone, Free 12.7 ng/dL (4.26-16.4); Testosterone, Total 529 ng/dL (240-950)
== END 2021-06-12 09:59 | disposition home or self-care (01) ==
LOC: LOS 09:59
PROVIDERS: PCP Family Medicine; Referring Provider Family Medicine; Visit Provider Family Medicine
DX: E78.5 Hyperlipidemia, unspecified (principal); Z00.00 Encounter for general adult medical examination without abnormal findings
CPT/HCPCS: 36415; 80061; 84402; 84403

== ENCOUNTER 2021-12-25 02:21 | Outpatient (CLI) | payer MEDICAID, SELFPAY | END 2021-12-25 02:22 | disposition home or self-care (01) | LOC: LBO 02:21 | PROVIDERS: PCP Family Medicine; Visit Provider Family Medicine ==

== ENCOUNTER → 2022-04-23 02:18 | Outpatient (CLI) | payer MEDICAID, SELFPAY ==
--- NOTE | 2022-04-23 06:45 | DI.RAD_ITS ---
Exam(s) XR KNEE LT 3V AP,LAT,MORGAN EXAM: XR KNEE LT 3V AP,LAT,MORGAN CLINICAL HISTORY: left knee pain, M25.562. TECHNIQUE: 2D digital imaging was performed of the left knee. Three images were obtained. AP, later al and PA tunnel views were obtained. COMPARISON: CR LEFT KNEE 3 VIEW COMPLETE from 10/21/2017 FINDINGS: BONES: No acute fracture is present. No bony destructive lesion is seen. JOINTS: The knee is normally aligned. No joint effusion is seen. There is mild narrowing of the media l femoral tibial joint. Small marginal osteophytes are seen at the femoral tibial joints. SOFT TISSUE: Normal. IMPRESSION: Mild degenerative changes of the left knee. DATA REPOSITORY: RADIATION DOSE DELIVERED:
== END ==
PROVIDERS: PCP Family Medicine; Visit Provider Family Medicine
DX: M17.12 Unilateral primary osteoarthritis, left knee (principal)
CPT/HCPCS: 73562

== ENCOUNTER 2022-07-23 10:43 | Outpatient (CLI) | payer MEDICAID, SELFPAY ==
[2022-07-23 14:11] LABS: Anion Gap 7.3 mmol/L (3-11); BUN 15 mg/dL (7-18); CO2 27.7 mmol/L (21.0-32.0); Calcium 8.8 mg/dL (8.5-10.1); Calculated LDL 148 mg/dL (<100); Chloride 103 mmol/L (98-107); Cholesterol 208 mg/dL (<200); Estimated GFR 93.42 (mL/min/1.73m2); Glucose 209 mg/dL (74-106); HDL Cholesterol 41 mg/dL (40-60); Potassium 4.4 mmol/L (3.5-5.1); Sodium 138 mmol/L (136-145); Triglyceride 96 mg/dL (<150)
[2022-07-24 08:52] LABS: Lab Add On Test DONE
[2022-07-24 09:12] LABS: ALT 65 U/L (16-63); AST 39 U/L (15-37)
== END 2022-07-23 10:44 | disposition home or self-care (01) ==
LOC: LOS 10:43
PROVIDERS: PCP Family Medicine; Referring Provider Family Medicine; Visit Provider Family Medicine
DX: E87.1 Hypo-osmolality and hyponatremia (principal); E78.5 Hyperlipidemia, unspecified; E11.9 Type 2 diabetes mellitus without complications
CPT/HCPCS: 36415; 80048; 80061; 83036; 84450; 84460

== ENCOUNTER 2022-07-23 15:12 | Outpatient (REF) | payer MEDICAID, SELFPAY ==
[2022-07-23 13:57] LABS: COMMENT (LAB VIEW ONLY) 228.78 mg/dL; Microalb ug/mg Crea 4.1 ug/mg Cr
== END 2022-07-23 15:13 | disposition home or self-care (01) ==
LOC: LBN 15:12
PROVIDERS: PCP Family Medicine; Visit Provider Family Medicine
DX: E11.9 Type 2 diabetes mellitus without complications (principal)
CPT/HCPCS: 82043; 82570

== ENCOUNTER 2022-08-04 20:21 | Emergency (ER) | payer MEDICAID, SELFPAY ==
[2022-08-04 20:27] VITALS: BP 176/89; PULSE 86; RESP 20; TEMP 36.9; O2SAT 98
[2022-08-04 20:54] LABS: Abs Immature Grans 0.03 10^3/uL (0.0-0.06); Absolute Basophil Count 0.04 10^3/uL (0.0-0.2); Absolute Eosinophil Count 0.13 10^3/uL (0.0-0.7); Absolute Lymphocyte Count 2.76 10^3/uL (1.2-3.4); Absolute Monocyte Count 0.49 10^3/uL (0.1-0.8); Absolute Neutrophil Count 3.69 10^3/uL (1.2-6.7); Basophils % 0.6; Eosinophils % 1.8; HCT 45.8 % (40.0-50.0); HGB 15.7 g/dL (13.5-17.5); Immature Grans % 0.4; Lymphocytes % 38.7; MCH 29.5 pg (27.0-33.0); MCHC 34.3 % (32.0-36.0); MCV 86 fL (80-95); MPV 10.7 fL (8.0-11.0); Monocytes % 6.9; Neutrophils % 51.6; Platelet Count 243 10^3/uL (130-400); RBC 5.33 10^6/uL (4.36-5.78); RDW 12.4 % (11.8-14.1); RDW-SD 38.5 fL; WBC 7.14 10^3/uL (4.4-10.8)
[2022-08-04] MEDS: Normal Saline 1,000 ML 1000 ML IV (20:54)
[2022-08-04] MEDS: Ketorolac 15 MG/ML VIAL IVP (20:54)
--- NOTE | 2022-08-04 21:00 | DI.CT_ITS ---
Exam(s) CT ABDOMEN PELVIS W EXAM: CT ABDOMEN PELVIS W CLINICAL HISTORY: RLQ, flank pain, hx stone and bowel resection. TECHNIQUE: Imaging Protocol: Axial computed tomography images with coronal and sagittal reformatted images were created and reviewed CONTRAST MATERIAL: Intravenous: Omnipaque 350 Contrast volume:100 ml Oral: / no COMPARISON: CT CT ABDOMEN PELVIS W from 09/13/2018 FINDINGS: ABDOMEN: Lung Bases: Normal where visualized. Liver: Moderate hepatic steatosis.. No measurable mass. Gallbladder and biliary tract: No radiodense calculus or dilation. Pancreas: Normal density, no abnormal calcifications or inflammatory process. Spleen: Normal. Kidneys: Normal size, contour and axis. No radiodense stones or obstructive uropathy. No masses seen. Adrenal glands: No masses seen. Abdominal Aorta: Abdominal portion non-dilated. Soft tissues: Midline surgical scar. No hernia. PELVIS: Bladder: No gross wall thickening. No calculi.No focal mass. Bowel: Suture line sigmoid colon. No obstruction or bowel wall thickening. Appendix normal. Peritoneal cavity: No ascites, collection or mesenteric inflammatory response. Bones: Within normal limits for age. Reproductive organs: Within normal limits. Lymph nodes: Unremarkable. Impression: No acute abnormality. RADIATION DOSE DELIVERED: 1,658.34mGy.cm Total DLP DATA REPOSITORY: All CT scans at this facility are submitted to the National Radiology Data Registry (NRDR) Dose Index Registry (DIR) with the [employer] (ACR). RADIATION OPTIMIZATION: All CT scans at this facility use at least one of these dose optimization te chniques: automated exposure control; mA and/or kV adjustment per patient size (includes targeted exa ms where dose is matched to clinical indication); or iterative reconstruction.
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
[2022-08-04] MEDS: Cyclobenzaprine 10 MG TAB PO (21:16)
[2022-08-04 21:20] LABS: ALT 50 U/L (16-63); AST 31 U/L (15-37); Albumin 4.1 g/dL (3.4-5.0); Alkaline Phosphatase 124 U/L (46-116); Anion Gap 8.2 mmol/L (3-11); BUN 16 mg/dL (7-18); Bilirubin, Total 0.5 mg/dL (0.2-1.0); CO2 27.8 mmol/L (21.0-32.0); CREATININE 1.1 mg/dL (0.70-1.30); Calcium 9.5 mg/dL (8.5-10.1); Chloride 103 mmol/L (98-107); Estimated GFR 83.32 (mL/min/1.73m2); Glucose 210 mg/dL (74-106); Potassium 3.9 mmol/L (3.5-5.1); Sodium 139 mmol/L (136-145); Total Protein 8.1 g/dL (6.4-8.2)
[2022-08-04] MEDS: Omnipaque 350 MG/ML 100 ML BTL IJ (21:25)
[2022-08-04] MEDS: Normal Saline - Diluent 50 ML VIAL IJ (21:30)
[2022-08-04] MEDS: Normal Saline Flush 10 ML SYR IVP (21:31)
[2022-08-04] MEDS: Lidocaine 5% Patch 1 PATCH TP (21:35)
--- NOTE | 2022-08-04 21:39 | DI.VRAD_ITS ---
PROCEDURE INFORMATION: Exam: CT Abdomen And Pelvis With Contrast Exam date and time: 08/04/2022 9:20 PM Age: 46 years old Clinical indication: Abdominal pain and other: Rflank; Localized; Right lower quadrant (rlq); Prior surgery; Surgery date: 6+ months; Surgery type: Colon resection; Patient HX: Rlq, flank pain, HX stone and bowel resection TECHNIQUE: Imaging protocol: Computed tomography of the abdomen and pelvis with contrast. Radiation optimization: All CT scans at this facility use at least one of these dose optimization techniques: automated exposure control; mA and/or kV adjustment per patient size (includes targeted exams where dose is matched to clinical indication); or iterative reconstruction. Contrast material: OMNIPAQUE 350; Contrast volume: 100 ml; Contrast route: INTRAVENOUS (IV); COMPARISON: CT ABDOMEN PELVIS W 09/13/2018 10:17 PM FINDINGS: Liver: Hepatomegaly and diffuse fatty infiltrationNo mass. Gallbladder and bile ducts: Normal. No calcified stones. No ductal dilation. Pancreas: Normal. No ductal dilation. Spleen: Normal. No splenomegaly. Adrenal glands: Normal. No mass. Kidneys and ureters: Normal. No hydronephrosis. Stomach and bowel: Suture line in the sigmoid colon No obstruction. Question mild mucosal thickening. Appendix: No evidence of appendicitis. Intraperitoneal space: Unremarkable. No free air. No significant fluid collection. Vasculature: Unremarkable. No abdominal aortic aneurysm. Lymph nodes: Unremarkable. No enlarged lymph nodes. Urinary bladder: Unremarkable as visualized. Reproductive: Unremarkable as visualized. Bones/joints: Unremarkable. No acute fracture. Soft tissues: Unremarkable. IMPRESSION: Nonspecific nonobstructed bowel gas pattern. Correlate for mild enteritis Dictated and Authenticated by: Otoniel Arrington MD. Ordering:PETER Elizalde MD
[2022-08-04 23:00] LABS: Bilirubin Negative (Negative); Blood Negative (Negative); Clarity Clear (Clear); Glucose Negative (Negative); Ketones Negative (Negative); Leukocyte Esterase Negative (Negative); Nitrite Negative (Negative); Urobilinogen 0.2 EU/dL (Up TO 0.2)
[2022-08-04 23:11] LABS: Bacteria Rare HPF (Negative); C & S Indicated? No; Crystals Negative HPF (Negative); Epithelial Cells Rare HPF (Negative); Mucus Negative (Negative); RBC 0-2 HPF (0-2); WBC 0-2 HPF (0-5)
[2022-08-05 00:20] VITALS: BP 135/88; PULSE 76; RESP 18; TEMP 36.5; O2SAT 96
--- NOTE | 2022-08-05 02:46 | NUR.NOTE ---
Per Dr. Hess, referral made for care management to assist in appt in the up coming weeks for an appt with GI at [facility] or [facility]. The patient has a history of a bowel resection and currently has loose stools and flank pain. Put the referral in the care director rn's box for appt assistance.Nursing Note:
== END 2022-08-05 00:26 | disposition home or self-care (01) ==
PROVIDERS: Emergency Provider Emergency Medicine; PCP Family Medicine
DX: R10.31 Right lower quadrant pain (principal); I10 Essential (primary) hypertension; N20.0 Calculus of kidney; Z87.442 Personal history of urinary calculi; Z87.19 Personal history of other diseases of the digestive system
CPT/HCPCS: 80053; 96361; 96374; 99285; 74177; 81003; 81015; 85025; 99284; J1885; J3490

== ENCOUNTER 2023-01-10 23:58 | Emergency (ER) | payer MEDICAID, SELFPAY ==
--- NOTE | 2023-01-11 | RT.EKG_ITS ---
APPROVED REPORT Exam: Resting ECG Reason for Exam: dizziness Patient Location: E HR:70 bpm ECG Measurements Heart Rate 70 AXIS OH 210 P 37 QRSd 73 QRS 7 QT 380 T 10 QTc 412 Conclusion Sinus rhythm...normal P axis, V-rate 60- 99 Prolonged OH interval...OH >210, V-rate 50- 90
[2023-01-11 00:03] VITALS: BP 135/84; PULSE 68; RESP 27; TEMP 35.9; O2SAT 96
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
[2023-01-11] MEDS: Clindamycin 150 MG CAP PO (01:05)
== END 2023-01-11 01:11 | disposition home or self-care (01) ==
PROVIDERS: Emergency Provider Emergency Medicine Emergency Medical Services; PCP Family Medicine
DX: K04.7 Periapical abscess without sinus (principal); R42 Dizziness and giddiness
CPT/HCPCS: 93005; 99283; 93010; 99284

== ENCOUNTER 2023-03-04 12:58 | Outpatient (CLI) | payer MEDICAID, SELFPAY ==
--- NOTE | 2023-03-04 12:45 | RT.EKG_ITS ---
APPROVED REPORT Exam: Resting ECG Reason for Exam: FU chest pain Patient Location: O HR:80 bpm ECG Measurements Heart Rate 80 AXIS WI 187 P 45 QRSd 82 QRS 4 QT 369 T 27 QTc 426 Conclusion Sinus rhythm...normal P axis, V-rate 50- 99 Normal Electrocardiogram
== END 2023-03-04 12:59 | disposition home or self-care (01) ==
LOC: DI.CM 12:59
PROVIDERS: PCP Family Medicine; Visit Provider Family Medicine
DX: R07.9 Chest pain, unspecified (principal)
CPT/HCPCS: 93010

== ENCOUNTER 2023-03-11 18:24 | Emergency (ER) | payer MEDICAID, SELFPAY ==
[2023-03-11 18:26] VITALS: BP 138/91; PULSE 90; RESP 18; TEMP 36.6; O2SAT 97
--- OUTSIDE RECORDS SUMMARY | 2023-03-11 18:49 | XMS_ITS | Continuity of Care Document ---
Author Name Unknown Organization [facility] Address [address] [place] [address] Encounter [facility] FIN NBR [id number] Date(s): 02/27/23 - 02/27/23 [facility] [address], [place] [address] Encounter Diagnosis Chest pain in adult(Discharge Diagnosis) - 02/27/23 Dyspnea(Discharge Diagnosis) - 02/27/23 Discharge Disposition: Home or Self Care Attending Physician: Roel Long DO Admitting Physician: Roel Long DO Allergies, Adverse Reactions, Alerts No Known Allergies Medications dextroamphetamine-amphetamine 30 mg oral capsule, extended release 30 mg 1 cap, Oral, every morning, 0 Refill(s) Start Date: 02/27/23 Status: Ordered ibuprofen 800 mg oral tablet 0 Refill(s) Start Date: 02/27/23 Status: Ordered Ozempic 2 mg/3 mL (0.25 mg or 0.5 mg dose) subcutaneous solution 0 Refill(s) Start Date: 02/27/23 Status: Ordered Mental Status 02/27/23 Eye Opening Response [place] Spontaneous ly Best Verbal Response [place] Oriented Best Motor Response Ozzy Obeys comman ds [place] Coma Score 15 Problem List No Known Problems Results Laboratory List Name Date Troponin-I High Sensitivity 02/27/23 Automated Diff 02/27/23 BNP 02/27/23 CBC w/ Diff 02/27/23 Comprehensive Metabolic Panel (CMP) 02/27 Lipase Level 02/27/23 Magnesium Level 02/27/23 Troponin-I High Sensitivity 02/27/23 Most recent to oldest [Reference Range]: 1 2 WBC [4.8-10.8 K/mcL] 7.8 K/mcL (02/27/23 5:35 PM) RBC [4.20-6.10 Million/mcL] 5.18 Million /mcL (02/27/23 5:35 PM) Neutro Auto [42.2-75.2 %] 61.7 % (02/27/23 5:35 PM) Lymph Auto [20.5-51.1 %] 29.9 % (02/27/23 5:35 PM) Garvin Auto [1.7-9.3 %] 5.6 % (02/27/23 5:35 PM) Basophil Auto [0.0-0.8 %] 0.6 % (02/27/23 5:35 PM) BUN [8-26 mg/dL] 17 mg/dL (02/27/23 5:35 PM) Glucose Level [74-106 mg/dL] 168 mg/dL *HI* (02/27/23 5:35 PM) Potassium Level [3.5-5.1 mmol/L] 3.9 mmo l/L (02/27/23 5:35 PM) Baso Absolute [0.0-0.2 K/mcL] 0.0 K/mcL (02/27/23 5:35 PM) MCV [80.0-94.0 fL] 86.5 fL (02/27/23 5:35 PM) AST [15-41 IntlUnit/L] 31 IntlUnit/L (02/27/23 5:35 PM) ALT [17-63 IntlUnit/L] 37 IntlUnit/L (02/27/23 5:35 PM) MCHC [32.0-36.0 g/dL] 34.6 g/dL (02/27/23 5:35 PM) Osmolality [275-295 mOsm/kg] 276 mOsm/kg (02/27/23 5:35 PM) Sodium Level [134-143 mmol/L] 135 mmol/L (02/27/23 5:35 PM) Lymph Absolute [1.2-3.4 K/mcL] 2.3 K/mcL (02/27/23 5:35 PM) Hct [42.0-52.0 %] 44.8 % (02/27/23 5:35 PM) Lipase Level [18-51 unit/L] 28 unit/L 1 (02/27/23 5:35 PM) Calcium Level [8.9-10.3 mg/dL] 9.5 mg/dL (02/27/23 5:35 PM) Garvin Absolute [0.1-0.6 K/mcL] 0.4 K/mcL (02/27/23 5:35 PM) Albumin Level [3.5-5.0 g/dL] 4.1 g/dL (02/27/23 5:35 PM) Protein Total [6.5-8.1 g/dL] 8.0 g/dL (02/27/23 5:35 PM) MCH [27.0-31.0 pg] 29.9 pg (02/27/23 5:35 PM) Magnesium Level [1.8-2.5 mg/dL] 2.1 mg/d L (02/27/23 5:35 PM) Neutro Absolute [1.4-6.5 K/mcL] 4.8 K/mc L (02/27/23 5:35 PM) Bilirubin Total [0.2-1.2 mg/dL] 0.7 mg/d L (02/27/23 5:35 PM) Hgb [14.0-18.0 g/dL] 15.5 g/dL (02/27/23 5:35 PM) Alk Phos [38-130 IntlUnit/L] 94 IntlUnit /L (02/27/23 5:35 PM) MPV [7.4-10.4 fL] 11.1 fL *HI* (02/27/23 5:35 PM) Platelets [130-400 K/mcL] 258 K/mcL (02/27/23 5:35 PM) CO2 [22-32 mmol/L] 25 mmol/L (02/27/23 5:35 PM) Eos Absolute [0.0-0.2 K/mcL] 0.2 K/mcL (02/27/23 5:35 PM) BNP [<=100 pg/mL] 12 pg/mL (02/27/23 5:35 PM) Chloride Level [98-111 mmol/L] 103 mmol/ L (02/27/23 5:35 PM) RDW-CV [11.5-14.5 %] 12.1 % (02/27/23 5:35 PM) A/G Ratio [1.0-2.5 g/dL] 1.1 g/dL (02/27/23 5:35 PM) BUN/Creat Ratio [8.0-20.0] 18.7 (02/27/23 5:35 PM) Globulin [2.3-3.5 g/dL] 3.9 g/dL *HI* (02/27/23 5:35 PM) Imm Gran Absolute 0.02 *NA* (02/27/23 5:35 PM) Imm Gran Auto [0.0-0.5 %] 0.3 % (02/27/23 5:35 PM) Slide Review Not Indicated (02/27/23 5:35 PM) Creatinine Level [0.61-1.24 mg/dL] 0.91 mg/dL (02/27/23 5:35 PM) Troponin-I HS [<=20 ng/L] 6 ng/L 2 (02/27/23 7:08 PM) 6 ng/L 3 (02/27/23 5:35 PM) Anion Gap [3.0-12.0] 7.0 (02/27/23 5:35 PM) Eos, Auto [0.00-3.00 %] 1.90 % (02/27/23 5:35 PM) eGFR CKD-EPI [>=60 mL/min/1.73 m2] 104 m L/min/1.73 m2 (02/27/23 5:35 PM) 1Interpretive Data: Z-inrnli-o-benzoquinone imine (meabolite of Acetaminophen) will generate erroneously low lipase results in samples for patients that have taken toxic doses of acetaminophen. 2Interpretive Data: The Tye ACCESS high-sensitivity Troponin I (hsTNI) 99 percentile cutoffs forhealthy adults are 12 ng/L or less for females and 20 ng/L or less for males. SERIAL MEASUREMENT IS HIGHLY RECOMMENDED for the diagnosis or exclusion of Acute Coronary Syndromes(ACS). Please refer to the High-Sensitivity Troponin Algorithm 2022 for guidance. As with all markers of cardiac injury, elevations of hsTnI do not in and of themselves indicate thepresence of an ischemic mechanism. Many other disease states can be associated with elevations via mechanisms different from those that cause injury in patients with ACS. These include trauma (contusion, ablation, pacing); congestive heart failure; pulmonary embolism; kidney failure; and myocarditis. Clinical judgement is necessary to distinguish patients who have ischemic heart disease from those who do not. 3Interpretive Data: The Tye ACCESS high-sensitivity Troponin I (hsTNI) 99 percentile cutoffs forhealthy adults are 12 ng/L or less for females and 20 ng/L or less for males. SERIAL MEASUREMENT IS HIGHLY RECOMMENDED for the diagnosis or exclusion of Acute Coronary Syndromes(ACS). Please refer to the High-Sensitivity Troponin Algorithm 2022 for guidance. As with all markers of cardiac injury, elevations of hsTnI do not in and of themselves indicate thepresence of an ischemic mechanism. Many other disease states can be associated with elevations via mechanisms different from those that cause injury in patients with ACS. These include trauma (contusion, ablation, pacing); congestive heart failure; pulmonary embolism; kidney failure; and myocarditis. Clinical judgement is necessary to distinguish patients who have ischemic heart disease from those who do not. Radiology Reports * Exam Date Time Procedure Performing Provider Status 02/27/23 6:33 PM XR Chest 2 Views Darius Florez (Verified) Notes: (XR Chest 2 Views) Reason For Exam: Chest Pain XR Chest 2 Views PROCEDURE INFORMATION: Exam: XR Chest Exam date and time: 02/27/2023 6:24 PM Age: 47 years old Clinical indication: Pain; Other: General; Additional info: Chest pain TECHNIQUE: Imaging protocol: Radiologic exam of the chest. Views: 2 views. COMPARISON: CT ABD/PELVIS WO CONTRAST 06/20/2018 7:19 PM FINDINGS: Lungs: Unremarkable. No consolidation. Pleural spaces: Unremarkable. No pleural effusion. No pneumothorax. Heart/Mediastinum: Unremarkable. No cardiomegaly. Bones/joints: Unremarkable. Other findings: Limited inspiration. IMPRESSION: No acute findings. THIS DOCUMENT HAS BEEN ELECTRONICALLY SIGNED BY ELIJAH LANG MD on 02/27/2023 07:13 PM Final Signed by: Eliajh Lang MD Signed (Electronic Signature): 02/27/2023 7:13 pm Vital Signs Most recent to oldest [Reference Range]: 1 2 3 Temperature Temporal Artery [36-38 Deg C] 36.5 Deg C (02/27/23 5:20 PM) Peripheral Pulse Rate [60-100 bpm] 67 bpm (02/27/23 7:25 PM) 66 bpm (02/27/23 7:00 PM) 79 bpm (02/27/23 6:45 PM) Heart Rate Monitored [60-100 bpm] 71 bpm (02/27/23 7:25 PM) 68 bpm (02/27/23 7:00 PM) 83 bpm (02/27/23 6:45 PM) Respiratory Rate [12-24 br/min] 19 br/min (02/27/23 7:25 PM) 23 br/min (02/27/23 7:00 PM) 14 br/min (02/27/23 6:45 PM) Blood Pressure [90-140/60-90 mmHg] 144/88mmHg *HI* (02/27/23 7:00 PM) 137/84mmHg (02/27/23 6:45 PM) 137/84mmHg (02/27/23 6:30 PM) Mean Arterial Pressure Cuff 105 mmHg (02/27/23 7:00 PM) 97 mmHg (02/27/23 6:45 PM) 97 mmHg (02/27/23 6:30 PM) Weight 136.08 kg (02/27/23 5:20 PM) Weight Dosing 136.08 kg (02/27/23 5:46 PM) Height 182.800 cm (02/27/23 5:20 PM) Height/Length Dosing 182.800 cm (02/27/23 5:46 PM) Body Mass Index 41.000 kg/m2 (02/27/23 5:20 PM) Social History Social History Type Response Tobacco Never tobacco user T obacco Use:. Sex Hospital Discharge Instructions Patient Education 02/27/2023 19:15:51 Nonspecific Chest Pain, Adult, Izxp-he-Wdud Nonspecific Chest Pain Chest pain can be caused by many different conditions. Some causes of chest pain can be life-threatening. These will require treatment right away. Serious causes of chest pain include: ??? Heart attack. ??? A tear in the body's main blood vessel. ??? Redness and swelling (inflammation) around your heart. ??? Blood clot in your lungs. Other causes of chest pain may not be so serious. These include: ??? Heartburn. ??? Anxiety or stress. ??? Damage to bones or muscles in your chest. ??? Lung infections. Chest pain can feel like: ??? Pain or discomfort in your chest. ??? Crushing, pressure, aching, or squeezing pain. ??? Burning or tingling. ??? Dull or sharp pain that is worse when you move, cough, or take a deep breath. ??? Pain or discomfort that is also felt in your back, neck, jaw, shoulder, or arm, or pain that spreads to any of these areas. It is hard to know whether your pain is caused by something that is serious or something that is not so serious. So it is important to see your doctor right away if you have chest pain. Follow these instructions at home: Medicines ??? Take owaq-yna-nrjzlrd and prescription medicines only as told by your doctor. ??? If you were prescribed an antibiotic medicine, take it as told by your doctor. Do not stop taking the antibiotic even if you start to feel better. Lifestyle ??? Rest as told by your doctor. ??? Do not use any products that contain nicotine or tobacco, such as cigarettes, e-cigarettes, andchewing tobacco. If you need help quitting, ask your doctor. ??? Do not drink alcohol. ??? Make lifestyle changes as told by your doctor. These may include: ??? Getting regular exercise. Ask your doctor what activities are safe for you. ??? Eating a heart-healthy diet. A diet and research nutritionist (dietitian) can help you to learn healthy eating options. ??? Staying at a healthy weight. ??? Treating diabetes or high blood pressure, if needed. ??? Lowering your stress. Activities such as yoga and relaxation techniques can help. General instructions ??? Pay attention to any changes in your symptoms. Tell your doctor about them or any new symptoms. ??? Avoid any activities that cause chest pain. ??? Keep all follow-up visits as told by your doctor. This is important. You may need more testing if your chest pain does not go away. Contact a doctor if: ??? Your chest pain does not go away. ??? You feel depressed. ??? You have a fever. Get help right away if: ??? Your chest pain is worse. ??? You have a cough that gets worse, or you cough up blood. ??? You have very bad (severe) pain in your belly (abdomen). ??? You pass out (faint). ??? You have either of these for no clear reason: ??? Sudden chest discomfort. ??? Sudden discomfort in your arms, back, neck, or jaw. ??? You have shortness of breath at any time. ??? You suddenly start to sweat, or your skin gets clammy. ??? You feel sick to your stomach (nauseous). ??? You throw up (vomit). ??? You suddenly feel lightheaded or dizzy. ??? You feel very weak or tired. ??? Your heart starts to beat fast, or it feels like it is skipping beats. These symptoms may be an emergency. Do not wait to see if the symptoms will go away. Get medical help right away. Call your local emergency services (911 in the [place] Do not drive yourself to the hospital. Summary ??? Chest pain can be caused by many different conditions. The cause may be serious and need treatment right away. If you have chest pain, see your doctor right away. ??? Follow your doctor's instructions for taking medicines and making lifestyle changes. ??? Keep all follow-up visits as told by your doctor. This includes visits for any further testing if your chest pain does not go away. ??? Be sure to know the signs that show that your condition has become worse. Get help right away if you have these symptoms. This information is not intended to replace advice given to you by your health care provider. Make sure you discuss any questions you have with your health care provider. Document Revised: 09/13/2021 Document Reviewed: 09/13/2021 [employer] Patient Education ?? 2022 [employer]. 02/27/2023 19:15:47 Exercise Stress Test Exercise Stress Test An exercise stress test is done to collect information about how your heart functions during exercise. The test is done while you are walking on a treadmill or using a stationary bike. The goal is toraise your heart rate and stress the heart. The heart is evaluated before, during, and after you exercise. An electrocardiogram (ECG) will be used to monitor the heart, and your blood pressure willalso be monitored. In some cases, nuclear scanning or an ultrasound of the heart (echocardiogram) will also be done to evaluate your heart. An exercise stress test is done to look for coronary artery disease (CAD). The test may also be done to: ??? Evaluate your limits of exercise during cardiac rehabilitation. ??? Check for high blood pressure during exercise. ??? Check how well you can exercise after such treatments as coronary stenting or new medicines. ??? Check for problems with blood flow to your arms and legs during exercise. If you have an abnormal test result, this may mean that you are not getting enough blood flow to your heart during exercise. More testing may be needed to understand why your test was not normal. Tell a health care provider about: ??? Any allergies you have. ??? All medicines you are taking, including vitamins, herbs, eye drops, creams, and xfya-fwu-pnugmkk medicines. ??? Any surgeries you have had, especially if you have an implantable cardioverter defibrillator (ICD) or pacemaker. ??? Any bleeding problems you have. ??? Any medical conditions you have. ??? Whether you are or may be . What are the risks? Generally, this is a safe test. However, problems may occur, including: ??? Pain or pressure in the following areas: ??? Chest. ??? Jaw or neck. ??? Between your shoulder blades. ??? Down your left arm. ??? Legs (claudication). ??? Dizziness or light-headedness. ??? Shortness of breath. ??? Irregular heartbeat (arrhythmia). ??? Nausea or vomiting. What happens before the test? Follow instructions from your health care provider about eating or drinking restrictions. ??? You may be told to avoid all forms of caffeine for 24 hours before the test. This includes coffee, tea (even decaffeinated tea), caffeinated sodas, chocolate, cocoa, and certain pain medicines. ??? Ask your health care provider about: ??? Taking qrvn-evp-zdcxudp medicines, vitamins, herbs, and supplements. ??? Changing or stopping your regular medicines. This is especially important if you are taking diabetes medicines or beta-sergei medicines. ??? If you have diabetes, ask how you are to take your insulin or pills. It is common to adjust your insulin dose the morning of the test. ??? If you are taking beta-sergei medicines, it is important to talk to your health care provider about these medicines well before the date of your test. Taking beta-sergei medicines may interferewith the test. In some cases, these medicines may need to be changed or stopped 24 hours or more before the test. ??? If you wear a nitroglycerin patch, it may need to be removed prior to the test. Ask your healthcare provider if the patch should be removed before the test. ??? Do not use any products that contain nicotine or tobacco for 4 hours before the test, or as told by the health care provider. These products include cigarettes, chewing tobacco, and vaping devices, such as e-cigarettes. If you need help quitting, ask your health care provider. ??? If you use an inhaler for a breathing condition, bring it with you to the test. ??? Do not apply lotions, powders, creams, or oils on your chest prior to the test. ??? Wear loose-fitting clothes and comfortable walking shoes. What happens during the test? Multiple electrodes will be attached to your chest. ??? Multiple wires will be attached to the electrodes. These will transfer the electrical impulses from your heart to the ECG machine. Your heart will be monitored both at rest and while exercising. ??? If you are also having an echocardiogram or nuclear scanning, images of your heart will be taken before and after you exercise. ??? A blood pressure cuff will be placed around your arm to measure your blood pressure throughout the test. You will feel it tighten and loosen throughout the test. ??? An oxygen saturation monitor will be placed on your finger to check oxygen levels throughout the test. ??? You will walk on a treadmill or use a stationary bike. If you cannot use these, you may be asked to turn a crank with your hands. ??? You will start at a slow pace or level on the exercise machine. The exercise difficulty will beslowly increased to raise your heart rate. In the case of a treadmill, the speed and incline will gradually be increased. ??? You may be asked to periodically breathe into a tube. This measures the gases you breathe out. ??? You will be asked how you are feeling throughout the test. You will be asked to rate your levelof exertion. ??? Tell the health care team right away if you feel: ??? Chest pain. ??? Dizziness. ??? Shortness of breath. ??? Too fatigued to continue. ??? Pain or aching in your legs or arms. ??? You will exercise until you have symptoms or until you reach a target heart rate. The test willalso be stopped if you have abnormal changes in your blood pressure or ECG readings, or if you develop an irregular heartbeat (arrhythmia). The procedure may vary among health care providers and hospitals. What can I expect after the test? You will sit down and recover from the exercise. Your blood pressure, heart rate, and ECG will be monitored until you recover. ??? You may return to your normal schedule, including diet, activities, and medicines, unless your health care provider tells you otherwise. ??? It is up to you to get your test results. Ask your health care provider, or the department thatis doing the test, when your results will be ready. Summary ??? An exercise stress test is a test that is done to collect information about how your heart functions during exercise. ??? This test is done to look for coronary artery disease (CAD). ??? During this test, you will walk on a treadmill or use an exercise bike to raise your heart rate. ??? It is important to follow instructions from your health care provider about eating and drinkingrestrictions before the test. This may include avoiding caffeine and certain medicines before the test. This information is not intended to replace advice given to you by your health care provider. Make sure you discuss any questions you have with your health care provider. Document Revised: 05/14/2022 Document Reviewed: 05/14/2022 [employer] Patient Education ?? 2022 [employer]. Follow Up Care 02/27/2023 17:20:09 With:Primary Care Health Professional Address: When:3 to 5 days Comments:You presented to the emergency department with??chest pain and shortness of breath. ??Fortunately your??laboratory work-up was unremarkable and reassuring. ??Your liver function testing,??renal function, glucose, EKG, chest x-ray, and troponin testing??high-sensitivity??was unremarkable for any??sig nificant??acute cardiopulmonary disease.?? Neck steps??in these are very important is to get??an appointment with your primary care physician this week??to arrange for outpatient stress testing as well as echocardiogram.?? A screening??bedside echocardiogram was performed on your heart and??revealed??no acute findings.?? Take it easy and do not perform anything??that would overexert yourself until seen by your primary health service.?? Return to the emergency department earlier with any new or worsening symptoms or for any concerns you have. Physician Emergency department Note * Roel Long DO: PERFORM Event Display: ED Note Physician Authored Date: [id number] PARMJIT TADEO :1975 Age:47 years Sex:Male Visit Date:02/27/2023 Basic Information Time Seen: Roel Long DO / 02/27/2023 17:23 Chief Complaint CP that started suddenly earlier today, states pressure in center of chest with SOB / difficulty breathing. States was seen at [facility] a couple days ago same thing but more intense this time. History Of Present Illness: This is a??47-year-old male??history of ADHD,??obesity on Ozempic, recurrent diverticulitis status post bowel resection,??non-smoker who presents to the emergency department due to concerns of central chest pressure 9-radiating associated with a sensation of dyspnea.?? This pain started earlier today??and is rated 4/10. ??No particular association with??exertion.?? Denies any strong family history of coronary artery disease although states his father had an OR??in his late 60s.?? No previous history of heart disease. Review of Systems: CONSTITUTIONAL: _No weight loss, fever, chills, weakness or fatigue SKIN: _No rash, no itching, no jaundice EYES: _No visual loss, blurred vision, double vision or scleral icterus ENT: _No ear pain; patent nares without bleeding or congestion; no sore throat CARDIOLOGY: _(+)ve chest pain, No edema, No palpitations PULMONOLOGY: _No pleuritic chest pain,??(+)ve gfsoyzkvf-xp-bvmeyo, No cough, No hemoptysis ABDOMEN:_no nausea, no vomiting, no abdominal pain, no melena, no hematochezia :_no dysuria, no urinary frequency, no urinary urgency, no vaginal bleeding, no vaginal discharge, FDLMP XXX NEURO:_No focal neurological deficit, no headache, no dizziness ?? REST OF REVIEW OF SYSTEMS IS NEGATIVE PERTAINS TO CHIEF COMPLAINT Physical Exam Vitals & Measurements T:??36.5?C ??(Temporal Artery)?? HR:??67??(Peripheral)?? HR:??71??(Monitored)?? RR:??19?? BP:??144/88?? SpO2:??100%?? HT:??182.800??cm?? WT:??136.08??kg?? BMI:??41.000?? O2 Flow Rate:??2?? O2 Therapy:??Nasal cannula?? GENERAL APPEARANCE: This is a robust??muscular somewhat overweight??male sitting on the examinationbed??in no obvious cardiopulmonary distress. HEENT: NC/AT; EOMI. PERRL, no conjunctival injection; no scleral icterus. TMs not examined. Nares patent. No posterior pharyngeal erythema or tonsillar exudate. NECK: Supple. HEART: RRR; No M/R/G CHEST: CTA B/L with symmetric excursions.?Pain not reproducible on examination. ABDOMEN: S/NT/ND/no peritoneal signs/bowel sounds present.?? No pain in the right upper quadrant. ??Dye sign negative.?? No McBurney's point tenderness. ??Midline central inferior umbilical scar and circumferential around the umbilicus is noted. ??This was reported from previous bouts of diverticulitis and bowel resection. : Deferred. MUSCULOSKELETAL: Adequate gait and station without ataxia. ??Moves all 4 extremities. EXTREMITIES: No edema. ??No unilateral leg swelling or posterior calf tenderness. BACK/SPINE: No midline CTLS tenderness. ??No CVAT. NEURO: Cranial nerves grossly intact. ??No acute focal neurologic deficit. Medical Decision Making: Chest pain.?? Heart score??3.?? Wells score 0. ??Meets PERC criteria. ??Low pretest probability of PE. ??No further work-up necessary for PE.?? Will obtain screening??cardiac work-up including high-sensitivity troponins, EKG, and chest x-ray. ??We will treat with aspirin, Protonix, and as needed nitroglycerin. ??Bedside echocardiogram as documented below. Procedure PROCEDURE NOTE: Cardiac Ultrasound Performed by: Self Indication:??_?Chest pain/dyspnea Technique:??Phased Array??Probe [place] Protocol: A time out was performed and the correct patient was verified. Sonographic Views:??All (subcostal, PLSA, PSSA, Apical 4 and IVC)? Findings: The patient's heart was scanned utilizing the above noted probe. The following views were obtained and evaluated. Cardiac activity was??present.??A small??anechoic fluid collection was seen in the pericardium. Evidence of cardiac tamponade??was not??present. Right heart evaluation showed??normal fun ction without dilatation. Left heart evaluation showed??normal function without dilatation. Evaluation of the IVC size and respiratory variation was??within normal limits. Patient tolerated the procedure well without apparent complication. ? Impression:??Normal Exam? Limitations:??Obesity No Qualifying Data Reexamination/Reevaluation 8:05 PM: There is no objective evidence of acute ischemia or infarction on EKG or troponin testing.There is no objective evidence of acute ischemia or infarction on EKG or troponin testing.?? Initial high-sensitivity troponin was 6 and remained flat at 6.?? Normal chest x-ray makes pneumonia, pneumothorax, aortic or other intrathoracic abnormalities much less likely.?? Glucose was not greater than 200 mg/dL as patient was concerned about diabetes mellitus.?? The rest of the screening laboratory work-up was unremarkable and reassuring. ?? At this point the patient has chest pain of unclear etiology. I have considered ACS, PE, pneumothorax, dissection and non-life threatening etiologies for their chest pain. Based off the history, physical and diagnostic studies I think the patient can be risk-stratified to leave the ED and continue their workup as an outpatient. I have recommended an outpatient cardiac stress test in the next week. They will take an aspirin qd. If they experience any further chest discomfort or pain, dyspnea,syncope, nausea or worsening symptoms they need to return immediately to the ED. If they cannot arrange follow-up they are to return to the ED. They will follow up with a PCP regarding the results later in the week. They expressed understanding and their questions were answered. Assessment/Plan 1.??Chest pain in adult??R07.9 2.??Dyspnea??R06.00 Patient Education Nonspecific Chest Pain, Adult, Zdwh-cx-Hrym Exercise Stress Test Follow Up With When Contact Information Primary Care Health Professional Within 3 to 5 days Additional Instructions: You presented to the emergency department with??chest pain and shortness of breath. ??Fortunately your??laboratory work-up was unremarkable and reassuring. ??Your liver function testing,??renal function, glucose, EKG, chest x-ray, and troponin testing??high-sensitivity??was unremarkable for any??significant??acute cardiopulmonary disease.?? Neck steps??in these are very important is to get??an appointment with your primary care physician this week??to arrange for outpatient stress testing as well as echocardiogram.?? A screening??bedside echocardiogram was performed on your heart and??revealed??no acute findings.?? Take it easy and do not perform anything??that would overexert yourself until seen by your primary health service.?? Return to the emergency departmentearlier with any new or worsening symptoms or for any concerns you have. Medication Reconciliation Unchanged dextroamphetamine-amphetamine (dextroamphetamine-amphetamine 30 mg oral capsule, extended release)1Capsules Oral (given by mouth) every morning. ?? ibuprofen (ibuprofen 800 mg oral tablet) ?? semaglutide (Ozempic 2 mg/3 mL (0.25 mg or 0.5 mg dose) subcutaneous solution) Problem List/Past Medical History Ongoing No chronic problems Historical No qualifying data Medication Administration Given aspirin, 324 mg, Oral ondansetron, 4 mg, IV Push Protonix, 40 mg, IV Push Allergies No Known Allergies Social History Alcohol Never Electronic Cigarette/Vaping Electronic Cigarette Use: Never. Tobacco Never tobacco user Tobacco Use:. Diagnostic Results XR Chest 2 Views 02/27/2023 19:13 EDT XR Chest 2 Views ?? 02/27/23 18:24:52 PROCEDURE INFORMATION: Exam: XR Chest Exam date and time: 02/27/2023 6:24 PM Age: 47 years old Clinical indication: Pain; Other: General; Additional info: Chest pain ?? TECHNIQUE: Imaging protocol: Radiologic exam of the chest. Views: 2 views. ?? COMPARISON: CT ABD/PELVIS WO CONTRAST 06/20/2018 7:19 PM ?? FINDINGS: Lungs: Unremarkable. No consolidation. Pleural spaces: Unremarkable. No pleural effusion. No pneumothorax. Heart/Mediastinum: Unremarkable. No cardiomegaly. Bones/joints: Unremarkable. ?? Other findings: Limited inspiration. ?? IMPRESSION: No acute findings. ? THIS DOCUMENT HAS BEEN ELECTRONICALLY SIGNED BY ELIJAH LANG MD on 02/27/2023 07:13 PM ?? Signed By: Elijah Lang MD ECG EKG 5:19 PM: EKG demonstrates normal sinus rhythm at 71 bpm;??normal axis;??borderline prolonged??[place]??otherwise normal intervals;??no objective evidence of acute ischemia or infarction Lab Results CBC and Differential?? LATEST RESULTS?? WBC?? 02/27/23 17:35?? 7.8?? RBC?? 02/27/23 17:35?? 5.18?? Hgb?? 02/27/23 17:35?? 15.5?? Hct?? 02/27/23 17:35?? 44.8?? MCV?? 02/27/23 17:35?? 86.5?? MCH?? 02/27/23 17:35?? 29.9?? MCHC?? 02/27/23 17:35?? 34.6?? RDW-CV?? 02/27/23 17:35?? 12.1?? Platelets?? 02/27/23 17:35?? 258?? MPV?? 02/27/23 17:35?? 11.1 ??High?? Neutro Auto?? 02/27/23 17:35?? 61.7?? Lymph Auto?? 02/27/23 17:35?? 29.9?? Garvin Auto?? 02/27/23 17:35?? 5.6?? Eos, Auto?? 02/27/23 17:35?? 1.90?? Basophil Auto?? 02/27/23 17:35?? 0.6?? Imm Gran Auto?? 02/27/23 17:35?? 0.3?? Neutro Absolute?? 02/27/23 17:35?? 4.8?? Lymph Absolute?? 02/27/23 17:35?? 2.3?? Garvin Absolute?? 02/27/23 17:35?? 0.4?? Eos Absolute?? 02/27/23 17:35?? 0.2?? Baso Absolute?? 02/27/23 17:35?? 0.0?? Imm Gran Absolute?? 02/27/23 17:35?? 0.02?? Slide Review?? 02/27/23 17:35?? Not Indicated? Routine Chemistry?? LATEST RESULTS?? Sodium Level?? 02/27/23 17:35?? 135?? Potassium Level?? 02/27/23 17:35?? 3.9?? Chloride Level?? 02/27/23 17:35?? 103?? CO2?? 02/27/23 17:35?? 25?? Alk Phos?? 02/27/23 17:35?? 94?? AST?? 02/27/23 17:35?? 31?? ALT?? 02/27/23 17:35?? 37?? BUN?? 02/27/23 17:35?? 17?? Glucose Level?? 02/27/23 17:35?? 168 ??High?? Creatinine Level?? 02/27/23 17:35?? 0.91?? BUN/Creat Ratio?? 02/27/23 17:35?? 18.7?? eGFR CKD-EPI?? 02/27/23 17:35?? 104?? Calcium Level?? 02/27/23 17:35?? 9.5?? Protein Total?? 02/27/23 17:35?? 8.0?? Albumin Level?? 02/27/23 17:35?? 4.1?? Globulin?? 02/27/23 17:35?? 3.9 ??High?? A/G Ratio?? 02/27/23 17:35?? 1.1?? Bilirubin Total?? 02/27/23 17:35?? 0.7?? Anion Gap?? 02/27/23 17:35?? 7.0?? Lipase Level?? 02/27/23 17:35?? 28?? Magnesium Level?? 02/27/23 17:35?? 2.1?? Osmolality?? 02/27/23 17:35?? 276? Cardiac Isoenzymes?? LATEST RESULTS?? BNP?? 02/27/23 17:35?? 12?? Troponin-I HS?? 02/27/23 19:08?? 6? Electronically Signed on 02/28/23 10:17 AM Roel Long DO Emergency department Discharge instructions * Roel Long DO: PERFORM Event Display: ED Discharge Information Authored Date: [id number] PARMJIT TADEO :1975 Age:47 years Sex:Male Visit Date:02/27/2023 Discharge Instructions We would like to thank you for allowing us to assist you with your healthcare needs. The following includes patient education materials and information regarding your injury/illness. Diagnosis from Today's Visit Chest pain in adult Dyspnea Discharge Vitals Temperature??(Temporal Artery) 97.7 ??F (36.5 ??C) Heart Rate??(Peripheral) 67 Heart Rate??(Monitored) 71 Respiratory Rate?? 19 Blood Pressure?? 144/88?? Height?? 71.97 in (182.800 cm) Weight?? 300.06 lb (136.08 kg) BMI?? 41.000 Allergies No Known Allergies What to Do Next You Need to Schedule the Following Appointments Follow Up with??Primary Care Health Professional When:??Within 3 to 5 days Why: You presented to the emergency department with??chest pain and shortness of breath. ??Fortunately your??laboratory work-up was unremarkable and reassuring. ??Your liver function testing,??renal function, glucose, EKG, chest x-ray, and troponin testing??high-sensitivity??was unremarkable for any??significant??acute cardiopulmonary disease.?? Neck steps??in these are very important is to get??an appointment with your primary care physician this week??to arrange for outpatient stress testing as well as echocardiogram.?? A screening??bedside echocardiogram was performed on your heart and??revealed??no acute findings.?? Take it easy and do not perform anything??that would overexert yourselfuntil seen by your primary health service.?? Return to the emergency department earlier with any new or worsening symptoms or for any concerns you have. You were treated today on an emergency basis; it may be cardona to contact your primary care provider to notify them of your visit today. You may have been referred to your regular doctor or a specialist, please follow up as instructed. If your condition worsens or you can't get in to see the doctor, contact the Emergency Department. Medications What How Much When Instructions Next Dose Unchanged dextroamphetamine- amphetamine (dextroamphetamine-amphetamine 30 mg oral capsule, extended release) 1 Capsules Oral (given by mouth) Every morning Unchanged ibuprofen (ibuprofen 800 mg oral tablet) Unchanged semaglutide (Ozempic 2 mg/ 3 mL (0.25 mg or 0.5 mg dose) subcutaneous solution) Education Materials Nonspecific Chest Pain Chest pain can be caused by many different conditions. Some causes of chest pain can be life-threatening. These will require treatment right away. Serious causes of chest pain include: ? Heart attack. ? A tear in the body's main blood vessel. ? Redness and swelling (inflammation) around your heart. ? Blood clot in your lungs. Other causes of chest pain may not be so serious. These include: ? Heartburn. ? Anxiety or stress. ? Damage to bones or muscles in your chest. ? Lung infections. Chest pain can feel like: ? Pain or discomfort in your chest. ? Crushing, pressure, aching, or squeezing pain. ? Burning or tingling. ? Dull or sharp pain that is worse when you move, cough, or take a deep breath. ? Pain or discomfort that is also felt in your back, neck, jaw, shoulder, or arm, or pain that spreads to any of these areas. It is hard to know whether your pain is caused by something that is serious or something that is not so serious. So it is important to see your doctor right away if you have chest pain. Follow these instructions at home: Medicines ? Take gsjr-kuz-kdiujaj and prescription medicines only as told by your doctor. ? If you were prescribed an antibiotic medicine, take it as told by your doctor. Do not stop taking the antibiotic even if you start to feel better. Lifestyle ? Rest as told by your doctor. ? Do not use any products that contain nicotine or tobacco, such as cigarettes, e- cigarettes, and chewing tobacco. If you need help quitting, ask your doctor. ? Do not drink alcohol. ? Make lifestyle changes as told by your doctor. These may include: ? Getting regular exercise. Ask your doctor what activities are safe for you. ? Eating a heart-healthy diet. A diet and research nutritionist (dietitian) can help you to learn healthy eating options. ? Staying at a healthy weight. ? Treating diabetes or high blood pressure, if needed. ? Lowering your stress. Activities such as yoga and relaxation techniques can help. General instructions ? Pay attention to any changes in your symptoms. Tell your doctor about them or any new symptoms. ? Avoid any activities that cause chest pain. ? Keep all follow-up visits as told by your doctor. This is important. You may need more testing if your chest pain does not go away. Contact a doctor if: ? Your chest pain does not go away. ? You feel depressed. ? You have a fever. Get help right away if: ? Your chest pain is worse. ? You have a cough that gets worse, or you cough up blood. ? You have very bad (severe) pain in your belly (abdomen). ? You pass out (faint). ? You have either of these for no clear reason: ? Sudden chest discomfort. ? Sudden discomfort in your arms, back, neck, or jaw. ? You have shortness of breath at any time. ? You suddenly start to sweat, or your skin gets clammy. ? You feel sick to your stomach (nauseous). ? You throw up (vomit). ? You suddenly feel lightheaded or dizzy. ? You feel very weak or tired. ? Your heart starts to beat fast, or it feels like it is skipping beats. These symptoms may be an emergency. Do not wait to see if the symptoms will go away. Get medical help right away. Call your local emergency services (911 in the [place] Do not drive yourself to the hospital. Summary ? Chest pain can be caused by many different conditions. The cause may be serious and need treatment right away. If you have chest pain, see your doctor right away. ? Follow your doctor's instructions for taking medicines and making lifestyle changes. ? Keep all follow-up visits as told by your doctor. This includes visits for any further testing if your chest pain does not go away. ? Be sure to know the signs that show that your condition has become worse. Get help right away if you have these symptoms. This information is not intended to replace advice given to you by your health care provider. Make sure you discuss any questions you have with your health care provider. Document Revised: 09/13/2021 Document Reviewed: 09/13/2021 [employer] Patient Education ?? 2022 [employer] Exercise Stress Test An exercise stress test is done to collect information about how your heart functions during exercise. The test is done while you are walking on a treadmill or using a stationary bike. The goal is toraise your heart rate and stress the heart. The heart is evaluated before, during, and after you exercise. An electrocardiogram (ECG) will be used to monitor the heart, and your blood pressure willalso be monitored. In some cases, nuclear scanning or an ultrasound of the heart (echocardiogram) will also be done to evaluate your heart. An exercise stress test is done to look for coronary artery disease (CAD). The test may also be done to: ? Evaluate your limits of exercise during cardiac rehabilitation. ? Check for high blood pressure during exercise. ? Check how well you can exercise after such treatments as coronary stenting or new medicines. ? Check for problems with blood flow to your arms and legs during exercise. If you have an abnormal test result, this may mean that you are not getting enough blood flow to your heart during exercise. More testing may be needed to understand why your test was not normal. Tell a health care provider about: ? Any allergies you have. ? All medicines you are taking, including vitamins, herbs, eye drops, creams, and sxzd-cvu-xcldbsi medicines. ? Any surgeries you have had, especially if you have an implantable cardioverter defibrillator (ICD) or pacemaker. ? Any bleeding problems you have. ? Any medical conditions you have. ? Whether you are or may be . What are the risks? Generally, this is a safe test. However, problems may occur, including: ? Pain or pressure in the following areas: ? Chest. ? Jaw or neck. ? Between your shoulder blades. ? Down your left arm. ? Legs (claudication). ? Dizziness or light-headedness. ? Shortness of breath. ? Irregular heartbeat (arrhythmia). ? Nausea or vomiting. What happens before the test? Follow instructions from your health care provider about eating or drinking restrictions. ? You may be told to avoid all forms of caffeine for 24 hours before the test. This includes coffee, tea (even decaffeinated tea), caffeinated sodas, chocolate, cocoa, and certain pain medicines. ? Ask your health care provider about: ? Taking jour-zpv-tdsjzen medicines, vitamins, herbs, and supplements. ? Changing or stopping your regular medicines. This is especially important if you are taking diabetes medicines or beta-sergei medicines. ? If you have diabetes, ask how you are to take your insulin or pills. It is common to adjust your insulin dose the morning of the test. ? If you are taking beta-sergei medicines, it is important to talk to your health care provider about these medicines well before the date of your test. Taking beta-sergei medicines may interfere with the test. In some cases, these medicines may need to be changed or stopped 24 hours or more beforethe test. ? If you wear a nitroglycerin patch, it may need to be removed prior to the test. Ask your health care provider if the patch should be removed before the test. ? Do not use any products that contain nicotine or tobacco for 4 hours before the test, or as told bythe health care provider. These products include cigarettes, chewing tobacco, and vaping devices, such as e-cigarettes. If you need help quitting, ask your health care provider. ? If you use an inhaler for a breathing condition, bring it with you to the test. ? Do not apply lotions, powders, creams, or oils on your chest prior to the test. ? Wear loose-fitting clothes and comfortable walking shoes. What happens during the test? Multiple electrodes will be attached to your chest. ? Multiple wires will be attached to the electrodes. These will transfer the electrical impulses fromyour heart to the ECG machine. Your heart will be monitored both at rest and while exercising. ? If you are also having an echocardiogram or nuclear scanning, images of your heart will be taken before and after you exercise. ? A blood pressure cuff will be placed around your arm to measure your blood pressure throughout the test. You will feel it tighten and loosen throughout the test. ? An oxygen saturation monitor will be placed on your finger to check oxygen levels throughout the test. ? You will walk on a treadmill or use a stationary bike. If you cannot use these, you may be asked toturn a crank with your hands. ? You will start at a slow pace or level on the exercise machine. The exercise difficulty will be slowly increased to raise your heart rate. In the case of a treadmill, the speed and incline will gradually be increased. ? You may be asked to periodically breathe into a tube. This measures the gases you breathe out. ? You will be asked how you are feeling throughout the test. You will be asked to rate your level of exertion. ? Tell the health care team right away if you feel: ? Chest pain. ? Dizziness. ? Shortness of breath. ? Too fatigued to continue. ? Pain or aching in your legs or arms. ? You will exercise until you have symptoms or until you reach a target heart rate. The test will also be stopped if you have abnormal changes in your blood pressure or ECG readings, or if you develop an irregular heartbeat (arrhythmia). The procedure may vary among health care providers and hospitals. What can I expect after the test? You will sit down and recover from the exercise. Your blood pressure, heart rate, and ECG will be monitored until you recover. ? You may return to your normal schedule, including diet, activities, and medicines, unless your health care provider tells you otherwise. ? It is up to you to get your test results. Ask your health care provider, or the department that is doing the test, when your results will be ready. Summary ? An exercise stress test is a test that is done to collect information about how your heart functions during exercise. ? This test is done to look for coronary artery disease (CAD). ? During this test, you will walk on a treadmill or use an exercise bike to raise your heart rate. ? It is important to follow instructions from your health care provider about eating and drinking restrictions before the test. This may include avoiding caffeine and certain medicines before the test. This information is not intended to replace advice given to you by your health care provider. Make sure you discuss any questions you have with your health care provider. Document Revised: 05/14/2022 Document Reviewed: 05/14/2022 [employer] Patient Education ?? 2022 [employer] Tests Performed Radiology XR Chest 2 Views 02/27/2023 19:13 EDT Medications and Immunizations Administered Given aspirin, 324 mg, Oral ondansetron, 4 mg, IV Push Protonix, 40 mg, IV Push Lab Test Name Test Result Date/Time WBC 7.8 K/mcL 02/27/2023 17:35 EDT RBC 5.18 Million/mcL 02/27/2023 17:35 EDT Hgb 15.5 g/dL 02/27/2023 17:35 EDT Hct 44.8 % 02/27/2023 17:35 EDT MCV 86.5 fL 02/27/2023 17:35 EDT MCH 29.9 pg 02/27/2023 17:35 EDT MCHC 34.6 g/dL 02/27/2023 17:35 EDT RDW-CV 12.1 % 02/27/2023 17:35 EDT Platelets 258 K/mcL 02/27/2023 17:35 EDT MPV 11.1 fL 02/27/2023 17:35 EDT Neutro Auto 61.7 % 02/27/2023 17:35 EDT Lymph Auto 29.9 % 02/27/2023 17:35 EDT Garvin Auto 5.6 % 02/27/2023 17:35 EDT Eos, Auto 1.90 % 02/27/2023 17:35 EDT Basophil Auto 0.6 % 02/27/2023 17:35 EDT Imm Gran Auto 0.3 % 02/27/2023 17:35 EDT Neutro Absolute 4.8 K/mcL 02/27/2023 17:35 EDT Lymph Absolute 2.3 K/mcL 02/27/2023 17:35 EDT Garvin Absolute 0.4 K/mcL 02/27/2023 17:35 EDT Eos Absolute 0.2 K/mcL 02/27/2023 17:35 EDT Baso Absolute 0.0 K/mcL 02/27/2023 17:35 EDT Imm Gran Absolute 0.02 02/27/2023 17:35 EDT Slide Review Not Indicated 02/27/2023 17:35 EDT Sodium Level 135 mmol/L 02/27/2023 17:35 EDT Potassium Level 3.9 mmol/L 02/27/2023 17:35 EDT Chloride Level 103 mmol/L 02/27/2023 17:35 EDT CO2 25 mmol/L 02/27/2023 17:35 EDT Alk Phos 94 IntlUnit/L 02/27/2023 17:35 EDT AST 31 IntlUnit/L 02/27/2023 17:35 EDT ALT 37 IntlUnit/L 02/27/2023 17:35 EDT BUN 17 mg/dL 02/27/2023 17:35 EDT Glucose Level 168 mg/dL 02/27/2023 17:35 EDT Creatinine Level 0.91 mg/dL 02/27/2023 17:35 EDT BUN/Creat Ratio 18.7 02/27/2023 17:35 EDT eGFR CKD-EPI 104 mL/min/1.73 m2 02/27/2023 17:35 EDT Calcium Level 9.5 mg/dL 02/27/2023 17:35 EDT Protein Total 8.0 g/dL 02/27/2023 17:35 EDT Albumin Level 4.1 g/dL 02/27/2023 17:35 EDT Globulin 3.9 g/dL 02/27/2023 17:35 EDT A/G Ratio 1.1 g/dL 02/27/2023 17:35 EDT Bilirubin Total 0.7 mg/dL 02/27/2023 17:35 EDT Anion Gap 7.0 02/27/2023 17:35 EDT Lipase Level 28 unit/L 02/27/2023 17:35 EDT Magnesium Level 2.1 mg/dL 02/27/2023 17:35 EDT Osmolality 276 mOsm/kg 02/27/2023 17:35 EDT BNP 12 pg/mL 02/27/2023 17:35 EDT Troponin-I HS 6 ng/L 02/27/2023 19:08 EDT Patient/Malt House Kiln Operator Signature Patient Name:PARMJIT TADEO I have received this information and my questions have been answered. Patient/Malt House Kiln Operator Name: Patient/Malt House Kiln Operator Signature: Relationship to Patient: Witness Name/Signature: Date: Electronically Signed on: 02/27/2023 20:18 EDTSigned by:ERWIN Patient Care team information Care Team Personnel Name: Roel Long DO Position: Physician Member Role: Admitting Physician Address: Address: [address] [place] [id number] Name: Merry Mondragon Position: Nurse Member Role: Registered Nurse
[2023-03-11] MEDS: Lidocaine/Epinephri/Tetracaine Topical Gel 3 ML TP (19:27)
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
[2023-03-11] MEDS: Cephalexin 500 MG CAP PO (20:55)
== END 2023-03-11 21:02 | disposition home or self-care (01) ==
PROVIDERS: Emergency Provider Emergency Medicine; PCP Family Medicine
DX: S61.511A Laceration without foreign body of right wrist, initial encounter (principal); W26.8XXA Contact with other sharp object(s), not elsewhere classified, initial encounter
CPT/HCPCS: 12002

== ENCOUNTER 2023-12-16 08:52 | Outpatient (REF) | payer MEDICAID, SELFPAY ==
[2023-12-16 13:50] LABS: COMMENT (LAB VIEW ONLY) 173.06 mg/dL; Microalb ug/mg Crea 2.6 ug/mg Cr
== END 2023-12-16 08:53 | disposition home or self-care (01) ==
LOC: LBN 08:52
PROVIDERS: PCP Family Medicine; Visit Provider Family Medicine
DX: E11.9 Type 2 diabetes mellitus without complications (principal)
CPT/HCPCS: 82043; 82570

== ENCOUNTER 2024-03-19 19:12 | Emergency (ER) | payer MEDICAID, SELFPAY ==
[2024-03-19 19:15] VITALS: BP 129/85; PULSE 80; RESP 20; TEMP 36.5; O2SAT 96
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
[2024-03-19] MEDS: Acetaminophen 500 MG TAB 1000 MG PO (19:46)
[2024-03-19] MEDS: Lidocaine 5% Patch 1 PATCH TP (19:46)
[2024-03-19] MEDS: Ketorolac 15 MG/ML VIAL IVP (19:46)
[2024-03-19] MEDS: diazePAM 10 MG/2 ML SYR 5 MG IVP (19:46)
[2024-03-19] MEDS: HYDROmorphone 2 MG/ML SYR 1 MG IVP (20:31)
[2024-03-19 21:55] VITALS: BP 145/102; PULSE 75; RESP 16; TEMP 36.3; O2SAT 96
== END 2024-03-19 21:58 | disposition home or self-care (01) ==
PROVIDERS: Emergency Provider Emergency Medicine; PCP Family Medicine
DX: M54.2 Cervicalgia (principal); M62.838 Other muscle spasm; F90.9 Attention-deficit hyperactivity disorder, unspecified type; G47.30 Sleep apnea, unspecified; J45.909 Unspecified asthma, uncomplicated; E11.9 Type 2 diabetes mellitus without complications; E78.5 Hyperlipidemia, unspecified
CPT/HCPCS: 96374; 96375; 99284; 99283; J1170; J1885; J3360